=== PATIENT | male | born 1940 | race Caucasian/White ===

== ENCOUNTER 2018-05-18 12:39 | Emergency (ER) | payer MEDICARE, MEDICAID ==
[~2018-05-18] VITALS: Ht 175.3 cm; Wt 98.0 kg
[~2018-05-18 12:39] MED LIST: COLC0.6C3 PO; GLIM4TAB79 PO; METF1000 PO; MICO14CR5 TOP
[2018-05-18 13:14] LABS: BASOPHILS % (AUTO) 0.5 % (0-1); EOSINOPHILS # (AUTO) 0.3 X10'3 (0-0.9); EOSINOPHILS % (AUTO) 3.3 % (0-6); HEMATOCRIT 40.1 % (42.0-52.0); HEMOGLOBIN 13.4 g/dl (14.0-17.9); LYMPHOCYTES # (AUTO) 1.5 X10'3 (1.1-4.8); LYMPHOCYTES % (AUTO) 14.9 % (21-51); MEAN CORPUSCULAR HEMOGLOBIN 28.3 PG (27.0-31.0); MEAN CORPUSCULAR HGB CONC 33.4 % (33.0-36.5); MEAN CORPUSCULAR VOLUME 84.7 FL (78-98); MEAN PLATELET VOLUME 11.2 FL (7.4-10.4); MONOCYTES # (AUTO) 0.8 X10'3 (0-0.9); MONOCYTES % (AUTO) 7.6 % (2-12); NEUTROPHILS # (AUTO) 7.6 X10'3 (1.8-7.7); NEUTROPHILS % (AUTO) 73.7 % (42-75); PLATELET COUNT 132 X10'3 (140-440); RED BLOOD COUNT 4.74 X10'6 (4.70-6.10); RED CELL DISTRIBUTION WIDTH 14.3 % (11.5-14.5); WHITE BLOOD COUNT 10.4 X10'3 (4.5-11.0)
[2018-05-18 13:27] LABS: ALANINE AMINOTRANSFERASE 31 U/L (12-78); ALBUMIN 3.5 G/DL (3.4-5.0); ALBUMIN/GLOBULIN RATIO 1.1 (1.1-1.5); ALKALINE PHOSPHATASE 125 IU/L (46-116); ANION GAP 12 (8-16); ASPARTATE AMINO TRANSFERASE 18 U/L (10-37); BILIRUBIN,TOTAL 0.6 MG/DL (0.1-1.0); BLOOD UREA NITROGEN 29 MG/DL (7-18); BUN/CREATININE RATIO 12.8 (5.4-32.0); CALCIUM 8.8 MG/DL (8.5-10.1); CHLORIDE 106 MMOL/L (99-107); CREATININE 2.27 MG/DL (0.60-1.10); GLUCOSE 145 MG/DL (70-104); POTASSIUM 3.6 MMOL/L (3.5-5.1); SODIUM 144 MMOL/L (135-145); TOTAL CARBON DIOXIDE 26.3 MMOL/L (24-32); TOTAL PROTEIN 6.7 G/DL (6.4-8.2); eGFR 28 ML/MIN
[2018-05-18 13:29] LABS: PARTIAL THROMBOPLASTIN TIME 30 SECONDS (22-32); PROTHROMBIN TIME 10.4 SECONDS (9.0-12.0)
[2018-05-18 14:59] VITALS: BP 161/74
== END 2018-05-18 15:42 | disposition home or self-care (01) ==
LOC: ER 12:39
DX: R07.81 Pleurodynia (principal); E78.00 Pure hypercholesterolemia, unspecified; I10 Essential (primary) hypertension; J44.9 Chronic obstructive pulmonary disease, unspecified; Z88.1 Allergy status to other antibiotic agents; Z88.8 Allergy status to other drugs, medicaments and biological substances
CPT/HCPCS: 36415; 71045; 71250; 80053; 83880; 84484; 85025; 85610; 85730; 93005; 99285

== ENCOUNTER 2018-06-23 14:31 | Emergency (ER) | payer MEDICARE, MEDICAID ==
[~2018-06-23] VITALS: Ht 175.3 cm; Wt 96.3 kg
[2018-06-23 14:53] VITALS: BP 167/69
[2018-06-23] MEDS ORDERED: HYDROcodone/acetaminophen 10/325mg tab PO ONE (15:50)
[2018-06-23] MEDS ORDERED: HYDR-4353 PO (16:07)
== END 2018-06-23 16:19 | disposition home or self-care (01) ==
LOC: ER 14:32
DX: S92.414A Nondisplaced fracture of proximal phalanx of right great toe, initial encounter for closed fracture (principal); S92.325A Nondisplaced fracture of second metatarsal bone, left foot, initial encounter for closed fracture; S92.335A Nondisplaced fracture of third metatarsal bone, left foot, initial encounter for closed fracture; I10 Essential (primary) hypertension; E78.00 Pure hypercholesterolemia, unspecified; J44.9 Chronic obstructive pulmonary disease, unspecified; E11.9 Type 2 diabetes mellitus without complications; M10.9 Gout, unspecified; Z98.890 Other specified postprocedural states; Z88.0 Allergy status to penicillin; Z88.8 Allergy status to other drugs, medicaments and biological substances; Z79.84 Long term (current) use of oral hypoglycemic drugs; Z79.899 Other long term (current) drug therapy; W10.8XXA Fall (on) (from) other stairs and steps, initial encounter; Y93.89 Activity, other specified; Y92.89 Other specified places as the place of occurrence of the external cause; Y99.8 Other external cause status
CPT/HCPCS: 73630; 99283

== ENCOUNTER 2018-07-03 10:54 | Outpatient (CLI) | payer MEDICARE, MEDICAID ==
[~2018-07-03 10:54] MED LIST changes: +HYDR-4353 PO
[2018-07-03 10:55] VITALS: BP 154/84
== END 2018-07-03 11:42 | disposition home or self-care (01) ==
LOC: ORTHO 10:54
PROVIDERS: ATTEND Nurse Practitioner Family
DX: S92.325A Nondisplaced fracture of second metatarsal bone, left foot, initial encounter for closed fracture (principal); S92.335A Nondisplaced fracture of third metatarsal bone, left foot, initial encounter for closed fracture; S92.414A Nondisplaced fracture of proximal phalanx of right great toe, initial encounter for closed fracture; E78.00 Pure hypercholesterolemia, unspecified; I10 Essential (primary) hypertension; J44.9 Chronic obstructive pulmonary disease, unspecified; E11.9 Type 2 diabetes mellitus without complications; Z88.0 Allergy status to penicillin; Z88.1 Allergy status to other antibiotic agents; W10.8XXA Fall (on) (from) other stairs and steps, initial encounter; Y93.89 Activity, other specified; Y92.89 Other specified places as the place of occurrence of the external cause; Y99.8 Other external cause status
CPT/HCPCS: 99213

== ENCOUNTER 2018-07-26 09:54 | Outpatient (CLI) | payer MEDICARE, MEDICAID ==
[2018-07-26 09:53] VITALS: BP 166/93
[~2018-07-26 09:54] MED LIST changes: -HYDR-4353 PO
== END 2018-07-26 10:42 | disposition home or self-care (01) ==
LOC: ORTHO 09:54
PROVIDERS: ATTEND Nurse Practitioner Family
DX: S92.325D Nondisplaced fracture of second metatarsal bone, left foot, subsequent encounter for fracture with routine healing (principal); S92.335D Nondisplaced fracture of third metatarsal bone, left foot, subsequent encounter for fracture with routine healing; S92.414D Nondisplaced fracture of proximal phalanx of right great toe, subsequent encounter for fracture with routine healing; M79.89 Other specified soft tissue disorders; Z88.0 Allergy status to penicillin; I10 Essential (primary) hypertension; J44.9 Chronic obstructive pulmonary disease, unspecified; E11.9 Type 2 diabetes mellitus without complications; Z79.899 Other long term (current) drug therapy; Z88.8 Allergy status to other drugs, medicaments and biological substances; W01.0XXD Fall on same level from slipping, tripping and stumbling without subsequent striking against object, subsequent encounter
CPT/HCPCS: 73630; 99213

== ENCOUNTER 2019-03-13 17:59 | Inpatient (IN) | payer MEDICARE, MEDICAID ==
[~2019-03-13] VITALS: Ht 176.5 cm; Wt 96.8 kg
[~2019-03-13 17:59] MED LIST changes: +GLIM4TAB4 PO; -GLIM4TAB79 PO
[2019-03-13] MEDS ORDERED: methylPREDNISolone sod succ 125mg/2ml vial IV ONE (18:25)
[2019-03-13] MEDS ORDERED: ipratropium/albuterol 3ml nebule NEB ONE (18:25)
[2019-03-13 18:36] LABS: BASOPHILS % (AUTO) 0.4 % (0-1); EOSINOPHILS # (AUTO) 0.1 X10'3 (0-0.9); EOSINOPHILS % (AUTO) 1.3 % (0-6); HEMATOCRIT 25.5 % (42.0-52.0); HEMOGLOBIN 8.5 g/dl (14.0-17.9); LYMPHOCYTES # (AUTO) 0.8 X10'3 (1.1-4.8); LYMPHOCYTES % (AUTO) 7.7 % (21-51); MEAN CORPUSCULAR HEMOGLOBIN 28.6 PG (27.0-31.0); MEAN CORPUSCULAR HGB CONC 33.2 g/dL (33.0-36.5); MEAN CORPUSCULAR VOLUME 86.1 FL (78-98); MEAN PLATELET VOLUME 10.2 FL (7.4-10.4); MONOCYTES % (AUTO) 9.4 % (2-12); NEUTROPHILS # (AUTO) 8.5 X10'3 (1.8-7.7); NEUTROPHILS % (AUTO) 81.2 % (42-75); RED BLOOD COUNT 2.96 X10'6 (4.70-6.10); RED CELL DISTRIBUTION WIDTH 16.4 % (11.5-14.5); WHITE BLOOD COUNT 10.4 X10'3 (4.5-11.0)
[2019-03-13 18:49] LABS: PARTIAL THROMBOPLASTIN TIME 37 SECONDS (22-32)
[2019-03-13 18:54] LABS: ALANINE AMINOTRANSFERASE 27 U/L (12-78); ALBUMIN 3.4 G/DL (3.4-5.0); ALBUMIN/GLOBULIN RATIO 1.4 (1.1-1.5); ALKALINE PHOSPHATASE 68 IU/L (46-116); ANION GAP 23 (8-16); ASPARTATE AMINO TRANSFERASE 9 U/L (10-37); BILIRUBIN,TOTAL 0.4 MG/DL (0.1-1.0); BLOOD UREA NITROGEN 146 MG/DL (7-18); BUN/CREATININE RATIO 9.4 (5.4-32.0); CALCIUM 6.8 MG/DL (8.5-10.1); CHLORIDE 102 MMOL/L (99-107); CREATININE 15.57 MG/DL (0.60-1.10); GLUCOSE 115 MG/DL (70-104); POTASSIUM 4.1 MMOL/L (3.5-5.1); SODIUM 133 MMOL/L (135-145); TOTAL PROTEIN 5.9 G/DL (6.4-8.2); eGFR 3 ML/MIN
[2019-03-13 19:10] LABS: PLATELET COUNT 140 X10'3 (140-440)
[2019-03-13 19:12] LABS: ANISOCYTOSIS 1+; BURR CELLS 1+
[2019-03-13 19:17] LABS: PLATELET ESTIMATE DECREASED
[2019-03-13 19:22] LABS: CREATINE KINASE 720 U/L (39-308)
--- NOTE | 2019-03-13 19:39 | NUR ---
pt states he is thirsty, aske dr watts if he can drink, said yes he can, obtained ice water for pt, tolerated well, states f/c makes him feel like he has to pee, reminded him not to pull it out, need to monitor fluid i/o
[2019-03-13 19:40] LABS: CLARITY,URINE SLIGHTLY CLOUDY (Clear); COLOR,URINE YELLOW (Yellow); GLUCOSE, URINE NEGATIVE (Neg); KETONES,URINE NEGATIVE (Neg); LEUKOCYTE ESTERASE ,URINE MODERATE (Neg); NITRITES, URINE NEGATIVE (Neg); OCCULT BLOOD,URINE MODERATE (Neg); PH,URINE 5.5 (4.8-8.0); PROTEIN,URINE NEGATIVE (Neg); UROBILINOGEN,URINE 0.2 E.U/dL (0.2-1.0)
[2019-03-13 19:42] LABS: UA COLLECTION TYPE FOLEY CATH
[2019-03-13 19:48] LABS: AMORPHOUS URATES 2+; BACTERIA,URINE 1+ /HPF (Neg); RBC,URINE NONE SEEN /HPF (0-2); SQUAMOUS EPITHELIAL CELL,UR FEW /LPF (FEW)
[2019-03-13 19:51] LABS: ABG BASE EXCESS -21.9 mmol/L (-2.0-3.0); ABG HCO3 5.5 mmol/L (22.0-26.0); ABG OXYGEN SATURATION 96.1 % (95-98); ABG PCO2 (T) 16.9 mmHg (35.0-45.0); ABG PH (T) 7.127 (7.350-7.450); ABG PO2 (T) 101.8 mmHg (83-108); ALLEN'S TEST Positive; FCOHb 0.3 % (0.5-1.5); FLOW 1 L/min; FMetHb 0.3 % (0.3-1.12); FO2Hb 95.5 % (94-100); PATIENT TEMPERATURE 36.5; RESPIRATORY RATE (OBSERVED) 22 b/min; TOTAL HEMOGLOBIN 9.2 G/dl (14.0-17.9)
[2019-03-13] MEDS ORDERED: ALLO100T PO (20:00)
[2019-03-13] MEDS ORDERED: METO1TAB25 PO (20:00)
[2019-03-13] MEDS ORDERED: FLO0.4C PO (20:00)
[2019-03-13] MEDS ORDERED: SIMV20TA5 PO (20:00)
[2019-03-13] MEDS ORDERED: ATRIN IH (20:00)
[2019-03-13] MEDS ORDERED: CALC0.2511 PO (20:00)
[2019-03-13] MEDS ORDERED: LANTUS SQ (20:00)
[2019-03-13] MEDS ORDERED: TIOT18CA3 IH (20:00)
[2019-03-13] MEDS ORDERED: LINA5TAB4 PO (20:00)
[2019-03-13] MEDS ORDERED: dextrose ORAL solution 15 GM/59 ML bottle PO PRN ×2 (20:15)
[2019-03-13] MEDS ORDERED: glucagon, human recombinant 1mg kit SUBCUT PRN (20:15)
[2019-03-13] MEDS ORDERED: MESSAGE TO PHARMACY PO ONE (20:15)
[2019-03-13] MEDS ORDERED: sodium bicarbonate (8.4%) inj. 75 MEQ in dextrose 5% water 500ml 500 ML IV SCH (20:15)
[2019-03-13] MEDS ORDERED: dextrose 50%-water 50ml dispensing syringe IV PRN ×2 (20:15)
[2019-03-13] MEDS ORDERED: acetaminophen 325mg tablet PO PRN (20:15)
[2019-03-13] MEDS: insulin glargine (Lantus) pen - multi-dose SQ SCH (20:29)
[2019-03-13] MEDS ORDERED: levoFLOXACIN-Levaquin 500mg/D5 100 ML IV ONE (20:30)
[2019-03-13 20:42] LABS: HEMOGLOBIN A1C 6.1 % (4.5-6.2)
[2019-03-13 21:00] VITALS: BP 163/81
--- NOTE | 2019-03-13 21:20 | NUR ---
Patient in room PCU 3012. I have received report from Ingrid STARK and had the opportunity to ask questions and assume patient care.
[2019-03-13] MEDS: atorvastatin 20mg tablet PO SCH (21:29)
[2019-03-13] MEDS: tamsulosin 0.4mg capsule PO SCH (21:30)
[2019-03-13] MEDS: morphine 2 MG/ML inj. syringe IV PRN (22:00)
[2019-03-13 23:00] VITALS: BP 146/78
[2019-03-14] MEDS: ondansetron/PF 4mg/2ml inj IV PRN (00:24)
[2019-03-14] MEDS: morphine 2 MG/ML inj. syringe IV PRN ×3 (00:25→03:54)
[2019-03-14 01:17] LABS: BASOPHILS % (AUTO) 0.1 % (0-1); EOSINOPHILS % (AUTO) 0.2 % (0-6); HEMATOCRIT 25.3 % (42.0-52.0); HEMOGLOBIN 8.3 g/dl (14.0-17.9); LYMPHOCYTES # (AUTO) 0.3 X10'3 (1.1-4.8); LYMPHOCYTES % (AUTO) 2.7 % (21-51); MEAN CORPUSCULAR HEMOGLOBIN 28.2 PG (27.0-31.0); MEAN CORPUSCULAR HGB CONC 32.8 g/dL (33.0-36.5); MEAN CORPUSCULAR VOLUME 86.1 FL (78-98); MEAN PLATELET VOLUME 10.5 FL (7.4-10.4); MONOCYTES # (AUTO) 0.1 X10'3 (0-0.9); MONOCYTES % (AUTO) 1.2 % (2-12); NEUTROPHILS # (AUTO) 10.9 X10'3 (1.8-7.7); NEUTROPHILS % (AUTO) 95.8 % (42-75); PLATELET COUNT 97 X10'3 (140-440); RED BLOOD COUNT 2.94 X10'6 (4.70-6.10); RED CELL DISTRIBUTION WIDTH 16.5 % (11.5-14.5); WHITE BLOOD COUNT 11.4 X10'3 (4.5-11.0)
[2019-03-14 01:28] LABS: ALANINE AMINOTRANSFERASE 31 U/L (12-78); ALBUMIN 3.4 G/DL (3.4-5.0); ALBUMIN/GLOBULIN RATIO 1.3 (1.1-1.5); ALKALINE PHOSPHATASE 71 IU/L (46-116); ANION GAP 27 (8-16); ASPARTATE AMINO TRANSFERASE 11 U/L (10-37); BILIRUBIN,TOTAL 0.4 MG/DL (0.1-1.0); BLOOD UREA NITROGEN 135 MG/DL (7-18); BUN/CREATININE RATIO 9.2 (5.4-32.0); CALCIUM 6.4 MG/DL (8.5-10.1); CHLORIDE 101 MMOL/L (99-107); CREATININE 14.62 MG/DL (0.60-1.10); GLUCOSE 146 MG/DL (70-104); MAGNESIUM 1.7 MG/DL (1.5-2.4); POTASSIUM 4.2 MMOL/L (3.5-5.1); SODIUM 135 MMOL/L (135-145); eGFR 3 ML/MIN
[2019-03-14 01:30] LABS: PHOSPHORUS 10.5 MG/DL (2.3-4.5); TOTAL CARBON DIOXIDE 6.9 MMOL/L (24-32)
[2019-03-14] MEDS ORDERED: sodium bicarbonate (8.4%) 1 mEq/ml syringe IV ONE (01:45)
[2019-03-14 02:00] VITALS: BP 168/74
[2019-03-14 06:00] VITALS: BP 164/87
--- NOTE | 2019-03-14 06:00 | NUR ---
Patient in room PCU 3012. I have received report from Ute STARK and had the opportunity to ask questions and assume patient care.
--- NOTE | 2019-03-14 06:28 | NUR ---
Problems reprioritized. Patient report given, questions answered & plan of care reviewed with Kelli STARK.
[2019-03-14] MEDS: sodium bicarbonate inj. 75 ML in dextrose 5% water 500ml 500 ML IV SCH ×5 (07:07→23:28)
[2019-03-14 07:43] LABS: ALANINE AMINOTRANSFERASE 29 U/L (12-78); ALBUMIN 3.3 G/DL (3.4-5.0); ALBUMIN/GLOBULIN RATIO 1.2 (1.1-1.5); ALKALINE PHOSPHATASE 70 IU/L (46-116); ANION GAP 28 (8-16); ASPARTATE AMINO TRANSFERASE 18 U/L (10-37); BILIRUBIN,TOTAL 0.4 MG/DL (0.1-1.0); BLOOD UREA NITROGEN 147 MG/DL (7-18); BUN/CREATININE RATIO 9.3 (5.4-32.0); CALCIUM 7.1 MG/DL (8.5-10.1); CHLORIDE 99 MMOL/L (99-107); CREATININE 15.81 MG/DL (0.60-1.10); GLUCOSE 174 MG/DL (70-104); POTASSIUM 4.2 MMOL/L (3.5-5.1); SODIUM 134 MMOL/L (135-145); TOTAL PROTEIN 6.1 G/DL (6.4-8.2); eGFR 3 ML/MIN
[2019-03-14 07:49] LABS: TOTAL CARBON DIOXIDE 7.2 MMOL/L (24-32)
--- NOTE | 2019-03-14 07:50 | NUR ---
Call to Dr Jordan re: critical lab CO2 7.2, new orders to increase Bicarb drip to 150 MEQ at 150 ml/hr, pt also c/o heartburn new order for Pepcid 20 mg orally twice daily. Orders entered Addendum: 03/14/19 at 1443 by Kelli Contreras RN clarification of bicarb order, pt to stay at 75 MEQ/500ml D5W, increase rate to 150ml/hr
[2019-03-14] MEDS ORDERED: heparin, porcine 5000 units/ml vial SQ SCH (08:00)
[2019-03-14] MEDS: ipratropium 0.5 MG/2.5ML nebule IH SCH ×2 (08:24→20:00)
[2019-03-14] MEDS: famotidine 20mg tablet PO SCH ×2 (09:01→19:12)
[2019-03-14 11:00] VITALS: BP 158/77
[2019-03-14] MEDS: insulin Lispro (HumaLOG) vial - multi-dose SQ SCH ×2 (13:36→19:07)
[2019-03-14 13:47] LABS: CLARITY,URINE CLOUDY (Clear); COLOR,URINE YELLOW (Yellow); GLUCOSE, URINE 100 mg/dl (Neg); KETONES,URINE NEGATIVE (Neg); LEUKOCYTE ESTERASE ,URINE MODERATE (Neg); NITRITES, URINE NEGATIVE (Neg); OCCULT BLOOD,URINE LARGE (Neg); PH,URINE 5.5 (4.8-8.0); PROTEIN,URINE 30 mg/dl (Neg); UROBILINOGEN,URINE 0.2 E.U/dL (0.2-1.0)
[2019-03-14 13:51] LABS: TOTAL PROTEIN,URINE RANDOM 49.8 MG/DL
[2019-03-14 13:58] LABS: UA COLLECTION TYPE FOLEY CATH
[2019-03-14 14:14] LABS: WBC,URINE 50-100 /HPF (0-4)
[2019-03-14 14:16] LABS: BACTERIA,URINE 1+ /HPF (Neg)
[2019-03-14 14:17] LABS: RBC,URINE 20-50 /HPF (0-2); WBC CLUMPS,URINE MODERATE /HPF (NEGATIVE)
[2019-03-14 14:23] LABS: SQUAMOUS EPITHELIAL CELL,UR MODERATE /LPF (FEW)
[2019-03-14 14:27] LABS: MUCUS STRANDS FEW /LPF (Neg); RENAL CELLS, URINE MODERATE /HPF; TRANSITIONAL EPI CELLS,URINE FEW /HPF
[2019-03-14 15:00] VITALS: BP 154/59
[2019-03-14 16:16] LABS: UA EOSINOPHILS NO EOS /HPF
[2019-03-14] MEDS ORDERED: levoFLOXACIN 500mg tablet PO ONE (16:30)
--- NOTE | 2019-03-14 18:00 | NUR ---
Problems reprioritized. Patient report given, questions answered & plan of care reviewed with Jeanie STARK.
--- NOTE | 2019-03-14 18:00 | NUR ---
Patient in room PCU 3012. I have received report from Kelli STARK and had the opportunity to ask questions and assume patient care.
[2019-03-14 19:00] VITALS: BP 145/76
[2019-03-14] MEDS: lactobacillus rhamnosus 10,000 MMU CELLS/CAPSULE PO SCH (19:12)
[2019-03-14] MEDS: atorvastatin 20mg tablet PO SCH (21:16)
[2019-03-14] MEDS: tamsulosin 0.4mg capsule PO SCH (21:17)
[2019-03-14] MEDS: insulin glargine (Lantus) pen - multi-dose SQ SCH (21:22)
[2019-03-14 23:00] VITALS: BP 149/65
[2019-03-15 03:00] VITALS: BP 120/93
[2019-03-15] MEDS: sodium bicarbonate inj. 75 ML in dextrose 5% water 500ml 500 ML IV SCH ×5 (03:42→23:55)
[2019-03-15 06:00] VITALS: BP 162/78
--- NOTE | 2019-03-15 06:00 | NUR ---
Patient in room PCU 3012. I have received report from Jeanie STARK and had the opportunity to ask questions and assume patient care.
--- NOTE | 2019-03-15 06:20 | NUR ---
Problems reprioritized. Patient report given, questions answered & plan of care reviewed with Crissy STARK.
[2019-03-15] MEDS ORDERED: normal saline 1000ml 250 ML IV PRN (08:00)
[2019-03-15] MEDS ORDERED: epoetin 20,000 units/ml inj IV ONE (08:00)
[2019-03-15] MEDS ORDERED: heparin 1,000 units/ml 10ml inj HE ONE ×2 (08:00)
[2019-03-15] MEDS ORDERED: heparin 1,000unit/ml 10ml vial 10 ML IV ONE (08:00)
[2019-03-15] MEDS: lactobacillus rhamnosus 10,000 MMU CELLS/CAPSULE PO SCH ×2 (08:53→22:06)
[2019-03-15] MEDS: famotidine 20mg tablet PO SCH ×2 (08:53→22:06)
[2019-03-15] MEDS: ipratropium 0.5 MG/2.5ML nebule IH SCH ×2 (08:53→22:55)
[2019-03-15 09:14] LABS: BASOPHILS % (AUTO) 0.1 % (0-1); EOSINOPHILS % (AUTO) 0 % (0-6); HEMOGLOBIN 7.2 g/dl (14.0-17.9); LYMPHOCYTES # (AUTO) 0.5 X10'3 (1.1-4.8); LYMPHOCYTES % (AUTO) 4.7 % (21-51); MEAN CORPUSCULAR HEMOGLOBIN 28.5 PG (27.0-31.0); MEAN CORPUSCULAR VOLUME 83.7 FL (78-98); MEAN PLATELET VOLUME 9.9 FL (7.4-10.4); MONOCYTES # (AUTO) 0.7 X10'3 (0-0.9); MONOCYTES % (AUTO) 6.7 % (2-12); NEUTROPHILS # (AUTO) 8.8 X10'3 (1.8-7.7); NEUTROPHILS % (AUTO) 88.5 % (42-75); PLATELET COUNT 94 X10'3 (140-440); RED BLOOD COUNT 2.51 X10'6 (4.70-6.10)
--- NOTE | 2019-03-15 09:40 | NUR ---
DR SANCHEZ INFORMED OF CURRENT H/H 7.2/21.0. NO NEW ORDERS AT THIS. Addendum: 03/15/19 at 0948 by Barbara Allen RN Amended: Links added.
[2019-03-15 09:58] LABS: PARTIAL THROMBOPLASTIN TIME 34 SECONDS (22-32)
[2019-03-15 10:00] LABS: ALANINE AMINOTRANSFERASE 33 U/L (12-78); ALBUMIN 3.1 G/DL (3.4-5.0); ALBUMIN/GLOBULIN RATIO 1.3 (1.1-1.5); ALKALINE PHOSPHATASE 60 IU/L (46-116); ANION GAP 20 (8-16); ASPARTATE AMINO TRANSFERASE 27 U/L (10-37); BILIRUBIN,TOTAL 0.3 MG/DL (0.1-1.0); BLOOD UREA NITROGEN 143 MG/DL (7-18); BUN/CREATININE RATIO 9.7 (5.4-32.0); CALCIUM 6.2 MG/DL (8.5-10.1); CHLORIDE 96 MMOL/L (99-107); GLUCOSE 113 MG/DL (70-104); MAGNESIUM 1.5 MG/DL (1.5-2.4); POTASSIUM 3.6 MMOL/L (3.5-5.1); SODIUM 132 MMOL/L (135-145); TOTAL PROTEIN 5.5 G/DL (6.4-8.2); eGFR 3 ML/MIN
[2019-03-15 11:00] VITALS: BP 157/71
[2019-03-15] MEDS: levoFLOXACIN 250mg tablet PO SCH (13:28)
[2019-03-15] MEDS ORDERED: fentaNYL/PF 50MCG/1 ML 2ML syringe IV PRN (13:40)
[2019-03-15] MEDS ORDERED: heparin 1,000 units/ml 10ml inj ICATH ONE (13:40)
[2019-03-15] MEDS ORDERED: midazolam 2 mg/2 ml injection IV PRN (13:40)
[2019-03-15] MEDS ORDERED: LIDOcaine 1%/PF 5ML 10 MG/ML VIAL SQ ONE (13:40)
[2019-03-15] MEDS ORDERED: midazolam 2 mg/2 ml injection ONE (13:48)
[2019-03-15] MEDS ORDERED: LIDOcaine 1%/PF 5ML 10 MG/ML VIAL ONE (13:48)
[2019-03-15] MEDS ORDERED: heparin 1,000unit/ml 10ml vial 10 ML ONE (13:48)
[2019-03-15] MEDS ORDERED: fentaNYL/PF 50MCG/1 ML 2ML syringe ONE (13:49)
[2019-03-15 15:00] VITALS: BP 146/78
[2019-03-15 18:00] VITALS: BP 113/74
--- NOTE | 2019-03-15 18:00 | NUR ---
Patient in room PCU 3027. I have received report from Anita STARK and had the opportunity to ask questions and assume patient care.
--- NOTE | 2019-03-15 18:00 | NUR ---
Problems reprioritized. Patient report given, questions answered & plan of care reviewed with Jeanie STARK.
[2019-03-15] MEDS: ondansetron/PF 4mg/2ml inj IV PRN (19:52)
[2019-03-15] MEDS: insulin glargine (Lantus) pen - multi-dose SQ SCH (21:00)
[2019-03-15 21:11] LABS: FERRITIN 411 NG/ML (26-388)
[2019-03-15 21:13] LABS: % IRON SATURATION 104 % (11-46); IRON 129 UG/DL (53-167); TOTAL IRON BINDING CAPACITY 124 UG/DL (259-388)
[2019-03-15 22:00] VITALS: BP 174/82
[2019-03-15] MEDS: tamsulosin 0.4mg capsule PO SCH (22:06)
[2019-03-15] MEDS: atorvastatin 20mg tablet PO SCH (22:06)
[2019-03-15] MEDS ORDERED: morphine 2 MG/ML inj. syringe IV PRN (22:40)
--- NOTE | 2019-03-16 00:43 | NUR ---
New a-fib rhythm change, flavorer Onel was contacted. Patient had no pain but was very anxious and confused after Dialysis; blood pressure 174/87. Verapamil was ordered for high blood pressure and 2mg Morphine was ordered for anxiety. Medication was given and patient now is more comfortable in bed, able to state he is in the hospital, name, birthday, and that dialysis was done. Will continue to monitor patient.
[2019-03-16 02:00] VITALS: BP 113/61
--- NOTE | 2019-03-16 02:14 | NUR ---
Patient finished dialysis at 2100, capillary blood sugar would have been inaccurate for Lantus. Blood sugars have been stable: 127 (AM), 102 (1400), 96 (1700). Patient NPO most of the day and had no appetite to eat dinner. 0200 blood sugar is 96, patient has no signs of hypoglycemia, will continue to monitor.
[2019-03-16 06:00] VITALS: BP 149/64
--- NOTE | 2019-03-16 06:00 | NUR ---
Patient in room PCU 3027. I have received report from Jeanie STARK and had the opportunity to ask questions and assume patient care.
[2019-03-16] MEDS: ondansetron/PF 4mg/2ml inj IV PRN ×2 (06:52→16:35)
--- NOTE | 2019-03-16 06:54 | NUR ---
Problems reprioritized. Patient report given, questions answered & plan of care reviewed with Anita RN.
[2019-03-16 07:10] LABS: BASOPHILS % (AUTO) 0.1 % (0-1); EOSINOPHILS % (AUTO) 0 % (0-6); HEMATOCRIT 22.3 % (42.0-52.0); HEMOGLOBIN 7.6 g/dl (14.0-17.9); LYMPHOCYTES # (AUTO) 0.4 X10'3 (1.1-4.8); LYMPHOCYTES % (AUTO) 2.5 % (21-51); MEAN CORPUSCULAR HEMOGLOBIN 28.3 PG (27.0-31.0); MEAN CORPUSCULAR HGB CONC 34.1 g/dL (33.0-36.5); MEAN CORPUSCULAR VOLUME 82.9 FL (78-98); MEAN PLATELET VOLUME 9.9 FL (7.4-10.4); MONOCYTES # (AUTO) 1.1 X10'3 (0-0.9); MONOCYTES % (AUTO) 7.9 % (2-12); NEUTROPHILS # (AUTO) 12.8 X10'3 (1.8-7.7); NEUTROPHILS % (AUTO) 89.5 % (42-75); RED BLOOD COUNT 2.69 X10'6 (4.70-6.10); RED CELL DISTRIBUTION WIDTH 16.2 % (11.5-14.5); WHITE BLOOD COUNT 14.3 X10'3 (4.5-11.0)
[2019-03-16 07:32] LABS: ALANINE AMINOTRANSFERASE 34 U/L (12-78); ALBUMIN 2.8 G/DL (3.4-5.0); ALBUMIN/GLOBULIN RATIO 1.1 (1.1-1.5); ALKALINE PHOSPHATASE 56 IU/L (46-116); ANION GAP 17 (8-16); ASPARTATE AMINO TRANSFERASE 36 U/L (10-37); BILIRUBIN,TOTAL 0.5 MG/DL (0.1-1.0); BLOOD UREA NITROGEN 95 MG/DL (7-18); BUN/CREATININE RATIO 8.7 (5.4-32.0); CALCIUM 6.1 MG/DL (8.5-10.1); CHLORIDE 97 MMOL/L (99-107); CREATININE 10.92 MG/DL (0.60-1.10); GLUCOSE 131 MG/DL (70-104); MAGNESIUM 1.4 MG/DL (1.5-2.4); PHOSPHORUS 5.9 MG/DL (2.3-4.5); SODIUM 135 MMOL/L (135-145); TOTAL CARBON DIOXIDE 20.6 MMOL/L (24-32); TOTAL PROTEIN 5.3 G/DL (6.4-8.2); eGFR 5 ML/MIN
--- NOTE | 2019-03-16 07:50 | NUR ---
Call to Sylvia Tate PAC re: critical lab of potassium 3.0, A-fib with rate of 130, nausea and confusion. Orders for single troponin and ABG. No potassium replacement ordered.
[2019-03-16 07:57] LABS: PLATELET COUNT 86 X10'3 (140-440)
[2019-03-16] MEDS ORDERED: heparin 1,000unit/ml 10ml vial 10 ML IV ONE (08:00)
[2019-03-16] MEDS ORDERED: epoetin 20,000 units/ml inj IV ONE (08:00)
[2019-03-16] MEDS ORDERED: normal saline 1000ml 250 ML IV PRN (08:00)
[2019-03-16] MEDS ORDERED: heparin 1,000 units/ml 10ml inj HE ONE ×2 (08:00)
[2019-03-16 08:13] LABS: HBSAG SCREEN Negative (Negative)
[2019-03-16] MEDS: ipratropium 0.5 MG/2.5ML nebule IH SCH ×2 (08:30→19:35)
[2019-03-16] MEDS: lactobacillus rhamnosus 10,000 MMU CELLS/CAPSULE PO SCH ×2 (08:52→19:24)
[2019-03-16] MEDS: famotidine 20mg tablet PO SCH ×2 (08:52→19:24)
[2019-03-16 09:06] LABS: ABG BASE EXCESS -6.1 mmol/L (-2.0-3.0); ABG HCO3 18.2 mmol/L (22.0-26.0); ABG PCO2 (T) 30.9 mmHg (35.0-45.0); ABG PH (T) 7.388 (7.350-7.450); ABG PO2 (T) 72.5 mmHg (83-108); ALLEN'S TEST Positive; FCOHb 0.3 % (0.5-1.5); FLOW 1 L/min; FMetHb 0.5 % (0.3-1.12); FO2Hb 92.3 % (94-100); TOTAL HEMOGLOBIN 7.9 G/dl (14.0-17.9)
[2019-03-16 11:00] VITALS: BP 98/66
[2019-03-16] MEDS ORDERED: lactulose 20gm/30ml cup PO ONE (14:10)
[2019-03-16 15:00] VITALS: BP 150/56
[2019-03-16] MEDS: levoFLOXACIN 250mg tablet PO SCH (15:28)
[2019-03-16] MEDS: sodium bicarbonate inj. 75 ML in dextrose 5% water 500ml 500 ML IV SCH ×2 (15:34→15:40)
[2019-03-16 18:00] VITALS: BP 140/74
--- NOTE | 2019-03-16 18:00 | NUR ---
Problems reprioritized. Patient report given, questions answered & plan of care reviewed with Harriet STARK.
[2019-03-16] MEDS: insulin Lispro (HumaLOG) vial - multi-dose SQ SCH (19:28)
[2019-03-16 19:45] LABS: OCCULT BLOOD STOOL NEGATIVE (Neg)
[2019-03-16] MEDS: tamsulosin 0.4mg capsule PO SCH (20:22)
[2019-03-16] MEDS: lactulose 20gm/30ml cup PO SCH (20:22)
[2019-03-16] MEDS: atorvastatin 20mg tablet PO SCH (20:22)
[2019-03-16] MEDS: insulin glargine (Lantus) pen - multi-dose SQ SCH (21:36)
[2019-03-16 23:00] VITALS: BP 121/64
[2019-03-17 03:00] VITALS: BP 148/67
[2019-03-17] MEDS: sodium bicarbonate inj. 75 ML in dextrose 5% water 500ml 500 ML IV SCH (04:48)
[2019-03-17 06:10] LABS: BASOPHILS % (AUTO) 0.1 % (0-1); EOSINOPHILS % (AUTO) 0.2 % (0-6); LYMPHOCYTES # (AUTO) 0.5 X10'3 (1.1-4.8); MEAN CORPUSCULAR HEMOGLOBIN 28.2 PG (27.0-31.0); MEAN CORPUSCULAR HGB CONC 33.6 g/dL (33.0-36.5); MEAN CORPUSCULAR VOLUME 83.9 FL (78-98); MEAN PLATELET VOLUME 10.4 FL (7.4-10.4); MONOCYTES # (AUTO) 1.1 X10'3 (0-0.9); MONOCYTES % (AUTO) 9.7 % (2-12); NEUTROPHILS # (AUTO) 9.9 X10'3 (1.8-7.7); PLATELET COUNT 69 X10'3 (140-440); RED BLOOD COUNT 2.41 X10'6 (4.70-6.10); RED CELL DISTRIBUTION WIDTH 16.1 % (11.5-14.5); WHITE BLOOD COUNT 11.5 X10'3 (4.5-11.0)
[2019-03-17 06:17] LABS: HEMATOCRIT 20.2 % (42.0-52.0); HEMOGLOBIN 6.8 g/dl (14.0-17.9)
[2019-03-17 06:21] LABS: ALANINE AMINOTRANSFERASE 33 U/L (12-78); ALBUMIN 2.6 G/DL (3.4-5.0); ALBUMIN/GLOBULIN RATIO 1.1 (1.1-1.5); ALKALINE PHOSPHATASE 56 IU/L (46-116); ANION GAP 13 (8-16); ASPARTATE AMINO TRANSFERASE 30 U/L (10-37); BILIRUBIN,TOTAL 0.6 MG/DL (0.1-1.0); BLOOD UREA NITROGEN 61 MG/DL (7-18); CALCIUM 6.3 MG/DL (8.5-10.1); CHLORIDE 97 MMOL/L (99-107); GLUCOSE 118 MG/DL (70-104); MAGNESIUM 1.5 MG/DL (1.5-2.4); PHOSPHORUS 4.2 MG/DL (2.3-4.5); SODIUM 135 MMOL/L (135-145); TOTAL CARBON DIOXIDE 25.3 MMOL/L (24-32); TOTAL PROTEIN 4.9 G/DL (6.4-8.2); eGFR 7 ML/MIN
[2019-03-17 06:27] LABS: POTASSIUM 2.7 MMOL/L (3.5-5.1)
--- NOTE | 2019-03-17 06:40 | NUR ---
Problems reprioritized. Patient report given, questions answered & plan of care reviewed with LINCOLN Merritt.
--- NOTE | 2019-03-17 06:41 | NUR ---
Patient in room PCU 3027. I have received report from Harriet STARK and had the opportunity to ask questions and assume patient care.
[2019-03-17] MEDS ORDERED: potassium Cl 20 mEq SR tablet PO ONE (06:45)
--- NOTE | 2019-03-17 06:45 | NUR ---
July notified of critical lab values of K 2.7, HgB 6.8, and Hct 20.2. stated she will put some orders in. Day shift RN also notified.
[2019-03-17 07:00] VITALS: BP 139/61
[2019-03-17] MEDS: lactobacillus rhamnosus 10,000 MMU CELLS/CAPSULE PO SCH ×2 (07:47→19:21)
[2019-03-17] MEDS: famotidine 20mg tablet PO SCH ×2 (07:47→19:20)
[2019-03-17 08:08] LABS: HEMOGLOBIN 7.2 g/dl (14.0-17.9); MEAN CORPUSCULAR HEMOGLOBIN 28.1 PG (27.0-31.0); MEAN CORPUSCULAR HGB CONC 33.2 g/dL (33.0-36.5); MEAN CORPUSCULAR VOLUME 84.5 FL (78-98); MEAN PLATELET VOLUME 10.3 FL (7.4-10.4); PLATELET COUNT 66 X10'3 (140-440); RED BLOOD COUNT 2.58 X10'6 (4.70-6.10); RED CELL DISTRIBUTION WIDTH 16.1 % (11.5-14.5); WHITE BLOOD COUNT 13.2 X10'3 (4.5-11.0)
[2019-03-17 08:13] LABS: HEMATOCRIT 21.8 % (42.0-52.0)
[2019-03-17] MEDS: insulin Lispro (HumaLOG) vial - multi-dose SQ SCH ×3 (08:21→18:48)
--- NOTE | 2019-03-17 08:30 | NUR ---
Patient has been stating that he is foggy in his head. Received report regarding patient being agitated after HD. Will continue to monitor.
[2019-03-17] MEDS: ipratropium 0.5 MG/2.5ML nebule IH SCH ×2 (09:39→20:12)
[2019-03-17 11:00] VITALS: BP 186/79
[2019-03-17] MEDS: levoFLOXACIN 250mg tablet PO SCH (11:09)
--- NOTE | 2019-03-17 11:19 | NUR ---
Spoke with Sylvia Tate. New orders for rose removal and bladder scanning with straight cath. Rose was removed and shruti care was provided, patient was provided with urinal.
[2019-03-17 15:00] VITALS: BP_SYST 139; BP_SYST 147; BP_DIAS 61; BP_DIAS 66
--- NOTE | 2019-03-17 18:22 | NUR ---
Problems reprioritized. Patient report given, questions answered & plan of care reviewed with Guido STARK. Patient stable at transfer of care.
--- NOTE | 2019-03-17 18:32 | NUR ---
Patient in room PCU 3021g. I have received report from LINCOLN Merritt and had the opportunity to ask questions and assume patient care. Patient awake for bedside report. Sitter at bedside. Will continue to monitor closely.
--- NOTE | 2019-03-17 18:58 | NUR ---
PAGER ID: [phone] MESSAGE: [phone]. [phone], LINCOLN Lora for patient in 3023m. Patient complaining anxiety and unable to calm down despite using calming approach. Are we able to get anything for him? Thank you
[2019-03-17 19:00] VITALS: BP 152/71
[2019-03-17] MEDS: LORazepam 1 MG tablet PO PRN (19:20)
[2019-03-17] MEDS: lactulose 20gm/30ml cup PO SCH (20:49)
[2019-03-17] MEDS: atorvastatin 20mg tablet PO SCH (20:50)
[2019-03-17] MEDS: tamsulosin 0.4mg capsule PO SCH (20:50)
[2019-03-17] MEDS: insulin glargine (Lantus) pen - multi-dose SQ SCH (21:00)
[2019-03-17 23:00] VITALS: BP 121/62
[2019-03-18 03:00] VITALS: BP 146/86
[2019-03-18 06:04] LABS: ALANINE AMINOTRANSFERASE 42 U/L (12-78); ALBUMIN 2.8 G/DL (3.4-5.0); ALBUMIN/GLOBULIN RATIO 1.1 (1.1-1.5); ALKALINE PHOSPHATASE 68 IU/L (46-116); ANION GAP 15 (8-16); ASPARTATE AMINO TRANSFERASE 36 U/L (10-37); BILIRUBIN,TOTAL 0.6 MG/DL (0.1-1.0); BLOOD UREA NITROGEN 60 MG/DL (7-18); CALCIUM 6.3 MG/DL (8.5-10.1); CHLORIDE 95 MMOL/L (99-107); CREATININE 8.63 MG/DL (0.60-1.10); GLUCOSE 95 MG/DL (70-104); MAGNESIUM 1.7 MG/DL (1.5-2.4); PHOSPHORUS 4.5 MG/DL (2.3-4.5); POTASSIUM 3.1 MMOL/L (3.5-5.1); SODIUM 132 MMOL/L (135-145); TOTAL CARBON DIOXIDE 22.1 MMOL/L (24-32); TOTAL PROTEIN 5.4 G/DL (6.4-8.2); eGFR 6 ML/MIN
--- NOTE | 2019-03-18 06:12 | NUR ---
Problems reprioritized. Patient report given, questions answered & plan of care reviewed with Guido STARK. Patient stable at transfer of care.
[2019-03-18 06:22] LABS: BASOPHILS % (AUTO) 0.1 % (0-1); EOSINOPHILS # (AUTO) 0.2 X10'3 (0-0.9); EOSINOPHILS % (AUTO) 1.3 % (0-6); HEMOGLOBIN 7.2 g/dl (14.0-17.9); LYMPHOCYTES # (AUTO) 1.2 X10'3 (1.1-4.8); LYMPHOCYTES % (AUTO) 6.7 % (21-51); MEAN CORPUSCULAR HEMOGLOBIN 28.8 PG (27.0-31.0); MEAN CORPUSCULAR HGB CONC 33.8 g/dL (33.0-36.5); MEAN PLATELET VOLUME 10.6 FL (7.4-10.4); MONOCYTES # (AUTO) 2.3 X10'3 (0-0.9); NEUTROPHILS # (AUTO) 14.2 X10'3 (1.8-7.7); NEUTROPHILS % (AUTO) 78.9 % (42-75); PLATELET COUNT 67 X10'3 (140-440); RED BLOOD COUNT 2.52 X10'6 (4.70-6.10); RED CELL DISTRIBUTION WIDTH 16.1 % (11.5-14.5); WHITE BLOOD COUNT 17.9 X10'3 (4.5-11.0)
[2019-03-18 06:28] LABS: HEMATOCRIT 21.4 % (42.0-52.0)
--- NOTE | 2019-03-18 06:31 | NUR ---
Reported critical Hgb 7.2, Hct 21.4, Platelets 67 to Onel. No new orders received.
--- NOTE | 2019-03-18 06:38 | NUR ---
Problems reprioritized. Patient report given, questions answered & plan of care reviewed with LINCOLN Merritt.
[2019-03-18 06:48] VITALS: BP 161/72
[2019-03-18] MEDS: lactobacillus rhamnosus 10,000 MMU CELLS/CAPSULE PO SCH ×2 (07:32→21:10)
[2019-03-18] MEDS: LORazepam 1 MG tablet PO PRN ×2 (07:32→17:24)
[2019-03-18] MEDS: famotidine 20mg tablet PO SCH ×2 (07:32→21:10)
--- NOTE | 2019-03-18 08:00 | NUR ---
Patient has intermittent confusion, sitter at bedside, will continue to monitor.
[2019-03-18] MEDS: insulin Lispro (HumaLOG) vial - multi-dose SQ SCH ×2 (08:07→14:04)
[2019-03-18] MEDS: ipratropium 0.5 MG/2.5ML nebule IH SCH ×2 (08:32→19:41)
[2019-03-18 09:46] LABS: TOTAL CELLS COUNTED 100
[2019-03-18 09:47] LABS: ANISOCYTOSIS 1+; LARGE PLATELETS FEW; PLATELET ESTIMATE DECREASED
[2019-03-18] MEDS ORDERED: heparin 1,000unit/ml 10ml vial 10 ML IV ONE (10:01)
[2019-03-18] MEDS ORDERED: normal saline 1000ml 250 ML IV PRN (10:01)
[2019-03-18] MEDS ORDERED: epoetin 20,000 units/ml inj IV ONE (10:05)
[2019-03-18] MEDS ORDERED: heparin 1,000 units/ml 10ml inj HE ONE ×2 (10:05)
[2019-03-18] MEDS: levoFLOXACIN 250mg tablet PO SCH (10:10)
[2019-03-18 11:00] VITALS: BP 146/77
--- NOTE | 2019-03-18 15:25 | NUR ---
Initial: Pt admit w/ SOB hx CKD III; ARF w/ ATN per MD note s/p HD past 2 days and not to receive today. PO improving 50-75% avg renal/carb controlled diet past 1.5 days up from 0% prior on admit. LBM 03/17. Glucerna TIDWM added for additional protein/kcal needs pending MD verification prior to sending on meals. Will continue to monitor for additional protein needs on HD. Rec: 1. continue carb controlled/renal diet per MD 2. Glucerna TIDWM pending MD verification prior to sending on trays 3. wt w/ HD Addendum: 03/18/19 at [address] Amended: Links added.
--- NOTE | 2019-03-18 18:15 | NUR ---
Patient in room PCU 3028b. I have received report from Shaina RN and Maria Antonia RN and had the opportunity to ask questions and assume patient care. Patient receiving HD and resting comfortably at this time. Will continue to monitor closely.
--- NOTE | 2019-03-18 18:35 | NUR ---
Problems reprioritized. Patient report given, questions answered & plan of care reviewed with Guido STARK. Patient stable at transfer of care.
[2019-03-18 19:00] VITALS: BP 159/89
[2019-03-18] MEDS: atorvastatin 20mg tablet PO SCH (21:10)
[2019-03-18] MEDS: tamsulosin 0.4mg capsule PO SCH (21:10)
--- NOTE | 2019-03-18 21:10 | NUR ---
Patient had observed fall at 2044. No injuries sustained and patient is alert to person, place, time and events. B/P 161/73 HR 80 Occurrence report filed and human resources manager manufacturing notified. No new orders at this time. Sitter orders remain. Will continue to monitor closely.
[2019-03-18] MEDS: lactulose 20gm/30ml cup PO SCH (21:11)
--- NOTE | 2019-03-18 21:18 | NUR ---
Late administration of scheduled medication due to hemodialysis infusion.
[2019-03-18] MEDS: insulin glargine (Lantus) pen - multi-dose SQ SCH (21:45)
[2019-03-18 23:00] VITALS: BP 157/72
[2019-03-19] VITALS (8 sets, daily range): BP systolic 125–163; BP diastolic 50–78
[2019-03-19] MEDS: LORazepam 1 MG tablet PO PRN ×2 (03:03→19:26)
[2019-03-19 05:38] LABS: ALBUMIN 2.6 G/DL (3.4-5.0); ANION GAP 12 (8-16); BLOOD UREA NITROGEN 34 MG/DL (7-18); BUN/CREATININE RATIO 5.5 (5.4-32.0); CALCIUM 6.6 MG/DL (8.5-10.1); CHLORIDE 101 MMOL/L (99-107); GLUCOSE 70 MG/DL (70-104); PHOSPHORUS 2.8 MG/DL (2.3-4.5); POTASSIUM 3.3 MMOL/L (3.5-5.1); SODIUM 137 MMOL/L (135-145); TOTAL CARBON DIOXIDE 24.5 MMOL/L (24-32); eGFR 9 ML/MIN
--- NOTE | 2019-03-19 06:14 | NUR ---
Problems reprioritized. Patient report given, questions answered & plan of care reviewed with LINCOLN Merritt and LINCOLN Em.
[2019-03-19 06:34] LABS: BASOPHILS % (AUTO) 0.1 % (0-1); EOSINOPHILS # (AUTO) 0.1 X10'3 (0-0.9); EOSINOPHILS % (AUTO) 1.1 % (0-6); LYMPHOCYTES # (AUTO) 0.7 X10'3 (1.1-4.8); LYMPHOCYTES % (AUTO) 6.1 % (21-51); MEAN CORPUSCULAR HGB CONC 32.8 g/dL (33.0-36.5); MEAN CORPUSCULAR VOLUME 85.4 FL (78-98); MEAN PLATELET VOLUME 9.8 FL (7.4-10.4); MONOCYTES # (AUTO) 2.2 X10'3 (0-0.9); MONOCYTES % (AUTO) 17.7 % (2-12); NEUTROPHILS # (AUTO) 9.2 X10'3 (1.8-7.7); PLATELET COUNT 81 X10'3 (140-440); RED BLOOD COUNT 2.46 X10'6 (4.70-6.10); RED CELL DISTRIBUTION WIDTH 15.9 % (11.5-14.5); WHITE BLOOD COUNT 12.2 X10'3 (4.5-11.0)
[2019-03-19 06:37] LABS: HEMOGLOBIN 6.9 g/dl (14.0-17.9)
--- NOTE | 2019-03-19 06:39 | NUR ---
Spoke with PAULINE Sykes regarding critical value Hgb 6.9, Hct 21.0 and Plts 81, no new orders received. Also asked if the patient K should be replaced due to the value at 3.3 and Onel said no.
--- NOTE | 2019-03-19 07:05 | NUR ---
Patient in room PCU 3027. I have received report from Guido STARK, and had the opportunity to ask questions and assume patient care.
[2019-03-19] MEDS: famotidine 20mg tablet PO SCH ×2 (07:52→19:11)
[2019-03-19] MEDS: lactobacillus rhamnosus 10,000 MMU CELLS/CAPSULE PO SCH ×2 (07:52→19:11)
--- NOTE | 2019-03-19 08:13 | NUR ---
Patient had low blood glucose this am, resource RN administered D50 and Blood glucose was normalized. Will continue to monitor.
[2019-03-19] MEDS: ipratropium 0.5 MG/2.5ML nebule IH SCH ×2 (09:27→19:32)
[2019-03-19 09:37] LABS: PLATELET ESTIMATE DECREASED; TOTAL CELLS COUNTED 100
[2019-03-19] MEDS: levoFLOXACIN 250mg tablet PO SCH (11:22)
--- NOTE | 2019-03-19 11:23 | NUR ---
Patient was very lethargic, was able to arouse. Patient is intermittently confused, checked blood glucose again and was 77. Gave the patient a juice and he seemed to become more alert. Sitter still at bedside, will continue to monitor.
--- NOTE | 2019-03-19 17:11 | NUR ---
Received a call from Mary from MRI she stated that she would have to " speak to a radiologist regarding the swan sequences that were ordered and she would have to get the table ready which would take a half an hour". Patient is ready to go at this time which I informed the radiologist the patient was ready now. Will continue to monitor closely and sitter is at bedside.
--- NOTE | 2019-03-19 17:21 | NUR ---
I called Dr. Jordan regarding my findings of pt's neuro assessment; left arm ataxia on the neuro exam and nihss exam. The ataxia is minimal; I asked him if he wanted me to call the [facility] or if he was going to follow Dr. Thomson's recommendations to treat after mri of brain is done. He told me that he is dealing with Dr. Luis and does not need SOC called at this time.
--- NOTE | 2019-03-19 17:24 | NUR ---
Patient went down for MRI and MRA accompanied by RN.
--- NOTE | 2019-03-19 18:26 | NUR ---
Problems reprioritized. Patient report given, questions answered & plan of care reviewed with Guido STARK.
--- NOTE | 2019-03-19 18:38 | NUR ---
Patient in room PCU 3027Z. I have received report from LINCOLN Merritt and had the opportunity to ask questions and assume patient care. Patient asleep for bedside report. Sitter in room. Will continue to monitor closely.
--- NOTE | 2019-03-19 19:12 | NUR ---
Scanner not working at time of medication administration.
[2019-03-19] MEDS: atorvastatin 20mg tablet PO SCH (20:56)
[2019-03-19] MEDS: lactulose 20gm/30ml cup PO SCH (20:56)
[2019-03-19] MEDS: tamsulosin 0.4mg capsule PO SCH (20:56)
[2019-03-19] MEDS: insulin glargine (Lantus) pen - multi-dose SQ SCH (21:01)
--- NOTE | 2019-03-20 00:48 | NUR ---
Per CT of head, patient has small bleed. Addendum: 03/20/19 at 0049 by Nicholas Gongora RN Amended: Links added.
[2019-03-20 02:00] VITALS: BP 138/58
[2019-03-20 04:53] LABS: BASOPHILS % (AUTO) 0.1 % (0-1); EOSINOPHILS # (AUTO) 0.1 X10'3 (0-0.9); EOSINOPHILS % (AUTO) 0.7 % (0-6); HEMATOCRIT 22.9 % (42.0-52.0); HEMOGLOBIN 7.5 g/dl (14.0-17.9); LYMPHOCYTES # (AUTO) 0.7 X10'3 (1.1-4.8); LYMPHOCYTES % (AUTO) 5.8 % (21-51); MEAN CORPUSCULAR HEMOGLOBIN 27.9 PG (27.0-31.0); MEAN CORPUSCULAR HGB CONC 32.7 g/dL (33.0-36.5); MEAN CORPUSCULAR VOLUME 85.3 FL (78-98); MEAN PLATELET VOLUME 9.6 FL (7.4-10.4); MONOCYTES # (AUTO) 2.7 X10'3 (0-0.9); MONOCYTES % (AUTO) 23.3 % (2-12); NEUTROPHILS # (AUTO) 8.1 X10'3 (1.8-7.7); NEUTROPHILS % (AUTO) 70.1 % (42-75); PLATELET COUNT 86 X10'3 (140-440); RED BLOOD COUNT 2.69 X10'6 (4.70-6.10); RED CELL DISTRIBUTION WIDTH 15.8 % (11.5-14.5); WHITE BLOOD COUNT 11.6 X10'3 (4.5-11.0)
[2019-03-20 05:28] LABS: ALBUMIN 2.7 G/DL (3.4-5.0); ANION GAP 14 (8-16); BLOOD UREA NITROGEN 40 MG/DL (7-18); BUN/CREATININE RATIO 5.1 (5.4-32.0); CALCIUM 6.6 MG/DL (8.5-10.1); CHLORIDE 99 MMOL/L (99-107); GLUCOSE 120 MG/DL (70-104); PHOSPHORUS 3.3 MG/DL (2.3-4.5); POTASSIUM 3.3 MMOL/L (3.5-5.1); SODIUM 138 MMOL/L (135-145); TOTAL CARBON DIOXIDE 25.3 MMOL/L (24-32); eGFR 7 ML/MIN
[2019-03-20 06:00] VITALS: BP 126/59
--- NOTE | 2019-03-20 06:35 | NUR ---
Problems reprioritized. Patient report given, questions answered & plan of care reviewed with LINCOLN Vicente.
[2019-03-20] MEDS: lactobacillus rhamnosus 10,000 MMU CELLS/CAPSULE PO SCH ×2 (07:30→20:42)
[2019-03-20] MEDS: famotidine 20mg tablet PO SCH ×2 (07:30→20:44)
[2019-03-20] MEDS: ipratropium 0.5 MG/2.5ML nebule IH SCH ×2 (08:25→20:14)
[2019-03-20] MEDS ORDERED: normal saline 1000ml 100 ML IV PRN (09:45)
[2019-03-20] MEDS ORDERED: normal saline 1000ml 250 ML IV PRN (09:45)
[2019-03-20] MEDS ORDERED: epoetin 20,000 units/ml inj IV ONE (09:45)
[2019-03-20] MEDS ORDERED: heparin 1,000 units/ml 10ml inj HE ONE ×2 (09:50)
[2019-03-20 10:43] LABS: PLATELET ESTIMATE DECREASED; TOTAL CELLS COUNTED 100
[2019-03-20 10:44] LABS: TOXIC VACUOLATION 1+
[2019-03-20] MEDS: levoFLOXACIN 250mg tablet PO SCH (10:48)
[2019-03-20 11:00] VITALS: BP 122/56
--- NOTE | 2019-03-20 13:09 | NUR ---
Patient in room PCU 3027. I have received report from LINCOLN Vicente and had the opportunity to ask questions and assume patient care.
[2019-03-20 15:00] VITALS: BP 148/75
[2019-03-20 18:00] VITALS: BP 160/89
--- NOTE | 2019-03-20 18:19 | NUR ---
Problems reprioritized. Patient report given, questions answered & plan of care reviewed with LINCOLN Goldstein.
--- NOTE | 2019-03-20 18:27 | NUR ---
Patient in room PCU 3027. I have received report from Chase STARK and had the opportunity to ask questions and assume patient care.
[2019-03-20] MEDS: atorvastatin 20mg tablet PO SCH (20:43)
[2019-03-20] MEDS: tamsulosin 0.4mg capsule PO SCH (20:43)
[2019-03-20] MEDS: lactulose 20gm/30ml cup PO SCH (20:44)
[2019-03-20] MEDS: insulin Lispro (HumaLOG) vial - multi-dose SQ SCH (21:00)
[2019-03-20] MEDS: insulin glargine (Lantus) pen - multi-dose SQ SCH (21:03)
[2019-03-20 23:00] VITALS: BP 145/79
[2019-03-21 03:00] VITALS: BP 109/70
[2019-03-21 04:56] LABS: BASOPHILS % (AUTO) 0.1 % (0-1); EOSINOPHILS # (AUTO) 0.1 X10'3 (0-0.9); EOSINOPHILS % (AUTO) 0.6 % (0-6); HEMATOCRIT 22.7 % (42.0-52.0); HEMOGLOBIN 7.3 g/dl (14.0-17.9); LYMPHOCYTES # (AUTO) 0.8 X10'3 (1.1-4.8); LYMPHOCYTES % (AUTO) 7.4 % (21-51); MEAN CORPUSCULAR HEMOGLOBIN 27.8 PG (27.0-31.0); MEAN CORPUSCULAR HGB CONC 32.4 g/dL (33.0-36.5); MEAN CORPUSCULAR VOLUME 85.9 FL (78-98); MEAN PLATELET VOLUME 9.4 FL (7.4-10.4); MONOCYTES # (AUTO) 2.6 X10'3 (0-0.9); MONOCYTES % (AUTO) 22.5 % (2-12); NEUTROPHILS # (AUTO) 7.9 X10'3 (1.8-7.7); NEUTROPHILS % (AUTO) 69.4 % (42-75); PLATELET COUNT 90 X10'3 (140-440); RED BLOOD COUNT 2.64 X10'6 (4.70-6.10); RED CELL DISTRIBUTION WIDTH 16.1 % (11.5-14.5); WHITE BLOOD COUNT 11.4 X10'3 (4.5-11.0)
[2019-03-21 05:15] LABS: ALBUMIN 2.3 G/DL (3.4-5.0); ANION GAP 7 (8-16); BLOOD UREA NITROGEN 21 MG/DL (7-18); BUN/CREATININE RATIO 4.2 (5.4-32.0); CALCIUM 6.8 MG/DL (8.5-10.1); CHLORIDE 104 MMOL/L (99-107); CREATININE 4.98 MG/DL (0.60-1.10); GLUCOSE 82 MG/DL (70-104); PHOSPHORUS 2.8 MG/DL (2.3-4.5); POTASSIUM 3.5 MMOL/L (3.5-5.1); SODIUM 139 MMOL/L (135-145); TOTAL CARBON DIOXIDE 27.6 MMOL/L (24-32); eGFR 11 ML/MIN
[2019-03-21 06:00] VITALS: BP 146/61
--- NOTE | 2019-03-21 06:04 | NUR ---
Patient in room PCU 3027. I have received report from LINCOLN Goldstein and had the opportunity to ask questions and assume patient care.
--- NOTE | 2019-03-21 06:06 | NUR ---
Problems reprioritized. Patient report given, questions answered & plan of care reviewed with Chase STARK.
[2019-03-21 06:36] LABS: ANISOCYTOSIS 1+; PLATELET ESTIMATE DECREASED; TOTAL CELLS COUNTED 100
[2019-03-21] MEDS: lactobacillus rhamnosus 10,000 MMU CELLS/CAPSULE PO SCH ×2 (07:17→20:22)
[2019-03-21] MEDS: famotidine 20mg tablet PO SCH ×2 (07:17→20:22)
[2019-03-21] MEDS: insulin Lispro (HumaLOG) vial - multi-dose SQ SCH (08:40)
[2019-03-21] MEDS: ipratropium 0.5 MG/2.5ML nebule IH SCH ×2 (09:03→20:59)
[2019-03-21 11:00] VITALS: BP 99/63
[2019-03-21] MEDS: levoFLOXACIN 250mg tablet PO SCH (11:17)
--- NOTE | 2019-03-21 12:57 | NUR ---
promotional table spacer PAGER ID: [phone] MESSAGE: [id number] Derik Mariee-scan results were normal. LINCOLN Stone Ext [phone] Addendum: 03/21/19 at 1312 by Chase Ruiz RN wrong patient.
[2019-03-21] MEDS: acetaminophen 325mg tablet PO PRN (14:09)
[2019-03-21 15:00] VITALS: BP 143/61
--- NOTE | 2019-03-21 18:15 | NUR ---
Patient in room PCU 3027. I have received report from Chase STARK and had the opportunity to ask questions and assume patient care.
--- NOTE | 2019-03-21 18:16 | NUR ---
Problems reprioritized. Patient report given, questions answered & plan of care reviewed with LINCOLN Neff.
[2019-03-21 19:00] VITALS: BP 145/66
[2019-03-21] MEDS: lactulose 20gm/30ml cup PO SCH (20:22)
[2019-03-21] MEDS: atorvastatin 20mg tablet PO SCH (20:22)
[2019-03-21] MEDS: tamsulosin 0.4mg capsule PO SCH (20:22)
[2019-03-21] MEDS: insulin glargine (Lantus) pen - multi-dose SQ SCH (21:00)
[2019-03-21 23:00] VITALS: BP 106/62
[2019-03-22] MEDS: temazepam 15mg capsule PO PRN (00:55)
[2019-03-22 03:00] VITALS: BP 121/65
[2019-03-22 05:12] LABS: BASOPHILS % (AUTO) 0.2 % (0-1); EOSINOPHILS # (AUTO) 0.2 X10'3 (0-0.9); EOSINOPHILS % (AUTO) 2.3 % (0-6); HEMATOCRIT 22.2 % (42.0-52.0); HEMOGLOBIN 7.4 g/dl (14.0-17.9); LYMPHOCYTES % (AUTO) 9.9 % (21-51); MEAN CORPUSCULAR HEMOGLOBIN 28.5 PG (27.0-31.0); MEAN CORPUSCULAR HGB CONC 33.2 g/dL (33.0-36.5); MEAN CORPUSCULAR VOLUME 85.9 FL (78-98); MONOCYTES # (AUTO) 1.3 X10'3 (0-0.9); MONOCYTES % (AUTO) 13.7 % (2-12); NEUTROPHILS # (AUTO) 7.2 X10'3 (1.8-7.7); NEUTROPHILS % (AUTO) 73.9 % (42-75); PLATELET COUNT 88 X10'3 (140-440); RED BLOOD COUNT 2.59 X10'6 (4.70-6.10); WHITE BLOOD COUNT 9.7 X10'3 (4.5-11.0)
[2019-03-22 05:21] LABS: ALBUMIN 2.2 G/DL (3.4-5.0); ANION GAP 10 (8-16); BLOOD UREA NITROGEN 31 MG/DL (7-18); BUN/CREATININE RATIO 5.3 (5.4-32.0); CALCIUM 6.9 MG/DL (8.5-10.1); CHLORIDE 101 MMOL/L (99-107); CREATININE 5.82 MG/DL (0.60-1.10); GLUCOSE 101 MG/DL (70-104); PHOSPHORUS 3.9 MG/DL (2.3-4.5); POTASSIUM 3.3 MMOL/L (3.5-5.1); SODIUM 137 MMOL/L (135-145); TOTAL CARBON DIOXIDE 26.3 MMOL/L (24-32); eGFR 9 ML/MIN
[2019-03-22 06:00] VITALS: BP 131/54
--- NOTE | 2019-03-22 06:00 | NUR ---
Problems reprioritized. Patient report given, questions answered & plan of care reviewed with Chase STARK.
--- NOTE | 2019-03-22 06:09 | NUR ---
Patient in room PCU 3017. I have received report from LINCOLN Neff and had the opportunity to ask questions and assume patient care.
[2019-03-22] MEDS: lactobacillus rhamnosus 10,000 MMU CELLS/CAPSULE PO SCH ×2 (07:54→20:58)
[2019-03-22] MEDS: famotidine 20mg tablet PO SCH ×2 (07:54→20:58)
[2019-03-22] MEDS ORDERED: normal saline 1000ml 250 ML IV PRN (08:00)
[2019-03-22] MEDS ORDERED: epoetin 20,000 units/ml inj IV ONE (08:00)
[2019-03-22] MEDS ORDERED: heparin 1,000unit/ml 10ml vial 10 ML IV ONE (08:00)
[2019-03-22] MEDS ORDERED: heparin 1,000 units/ml 10ml inj HE ONE ×2 (08:00)
[2019-03-22] MEDS: ipratropium 0.5 MG/2.5ML nebule IH SCH ×2 (08:31→21:23)
--- NOTE | 2019-03-22 08:45 | NUR ---
Patient in room PCU 3017. I have received report from LINCOLN Stone and had the opportunity to ask questions and assume patient care.
[2019-03-22 11:00] VITALS: BP 137/66
[2019-03-22] MEDS: levoFLOXACIN 250mg tablet PO SCH (13:16)
[2019-03-22 15:00] VITALS: BP 95/77
[2019-03-22] MEDS: acetaminophen 325mg tablet PO PRN ×2 (16:32→22:30)
[2019-03-22 18:00] VITALS: BP 124/52
--- NOTE | 2019-03-22 18:16 | NUR ---
Problems reprioritized. Patient report given, questions answered & plan of care reviewed with LINCOLN Jerry.
[2019-03-22] MEDS: lactulose 20gm/30ml cup PO SCH (20:58)
[2019-03-22] MEDS: atorvastatin 20mg tablet PO SCH (20:58)
[2019-03-22] MEDS: tamsulosin 0.4mg capsule PO SCH (20:58)
[2019-03-22] MEDS: insulin glargine (Lantus) pen - multi-dose SQ SCH (21:00)
[2019-03-22 22:00] VITALS: BP 132/71
[2019-03-23] VITALS (11 sets, daily range): BP systolic 112–141; BP diastolic 54–73
[2019-03-23 05:34] LABS: ALBUMIN 2.2 G/DL (3.4-5.0); ANION GAP 6 (8-16); BLOOD UREA NITROGEN 21 MG/DL (7-18); CALCIUM 7.1 MG/DL (8.5-10.1); CHLORIDE 103 MMOL/L (99-107); CREATININE 4.23 MG/DL (0.60-1.10); GLUCOSE 96 MG/DL (70-104); PHOSPHORUS 2.8 MG/DL (2.3-4.5); POTASSIUM 3.9 MMOL/L (3.5-5.1); SODIUM 139 MMOL/L (135-145); eGFR 14 ML/MIN
[2019-03-23 06:08] LABS: BASOPHILS % (AUTO) 0.2 % (0-1); EOSINOPHILS # (AUTO) 0.1 X10'3 (0-0.9); EOSINOPHILS % (AUTO) 1.7 % (0-6); LYMPHOCYTES % (AUTO) 12.6 % (21-51); MEAN CORPUSCULAR HEMOGLOBIN 28.5 PG (27.0-31.0); MEAN CORPUSCULAR HGB CONC 33.1 g/dL (33.0-36.5); MONOCYTES # (AUTO) 1.1 X10'3 (0-0.9); MONOCYTES % (AUTO) 13.9 % (2-12); NEUTROPHILS # (AUTO) 5.6 X10'3 (1.8-7.7); NEUTROPHILS % (AUTO) 71.6 % (42-75); PLATELET COUNT 100 X10'3 (140-440); RED BLOOD COUNT 2.43 X10'6 (4.70-6.10); RED CELL DISTRIBUTION WIDTH 16.2 % (11.5-14.5); WHITE BLOOD COUNT 7.9 X10'3 (4.5-11.0)
[2019-03-23 06:23] LABS: HEMATOCRIT 20.9 % (42.0-52.0); HEMOGLOBIN 6.9 g/dl (14.0-17.9)
--- NOTE | 2019-03-23 06:27 | NUR ---
Critical H&H of 6.9/20.9 reported to Bayron Lau NP. No new orders. Pt to have HD tomorrow 03/24
--- NOTE | 2019-03-23 06:35 | NUR ---
Patient in room PCU 3017. I have received report from LINCOLN Neff and had the opportunity to ask questions and assume patient care.
--- NOTE | 2019-03-23 06:45 | NUR ---
Problems reprioritized. Patient report given, questions answered & plan of care reviewed with Ximena RN.
[2019-03-23] MEDS: ipratropium 0.5 MG/2.5ML nebule IH SCH ×2 (09:06→21:11)
[2019-03-23] MEDS: lactobacillus rhamnosus 10,000 MMU CELLS/CAPSULE PO SCH ×2 (09:07→21:20)
[2019-03-23] MEDS: famotidine 20mg tablet PO SCH ×2 (09:08→21:20)
--- NOTE | 2019-03-23 11:15 | NUR ---
Sylvia Tate NP ordered to DC neuro checks, no anti-thrombic therapy & DC Q6h bladder scans. All of these interventions are now completed.
--- NOTE | 2019-03-23 15:07 | NUR ---
Reassessment: Pt c/o difficulty swallowing. Pt currently on a [facility] soft renal CHO controlled diet. Pt seen at bedside reports difficulty swallowing dry food. Pt agreeable to gravy on meat BIDLD and grind all food, d/w dietary. ST has been consulted for BSS. Pt also requests scrambled eggs with breakfast, d/w dietary. Pt was provided with RD contact information and encouraged to reach out. Pt continues to be dialysis dependent per MD notes. LBM 03/22. Will continue to follow. Rec: 1. Continue carb controlled/renal diet with adjustments per ST recs pending BSS 2. Grind all; gravy on meat BIDLD; eggs with breakfast 3. Encourage PO intake 4. Glucerna TIDWM pending MD verification prior to sending on trays 5. wt w/ HD Addendum: 03/23/19 at [address] Amended: Links added.
--- NOTE | 2019-03-23 18:20 | NUR ---
Problems reprioritized. Patient report given, questions answered & plan of care reviewed with LINCOLN Neff.
--- NOTE | 2019-03-23 18:20 | NUR ---
Patient in room PCU 3017. I have received report from Ximena STARK and had the opportunity to ask questions and assume patient care.
[2019-03-23] MEDS: insulin glargine (Lantus) pen - multi-dose SQ SCH (21:00)
[2019-03-23] MEDS: lactulose 20gm/30ml cup PO SCH (21:20)
[2019-03-23] MEDS: tamsulosin 0.4mg capsule PO SCH (21:20)
[2019-03-23] MEDS: atorvastatin 20mg tablet PO SCH (21:20)
[2019-03-23] MEDS: temazepam 15mg capsule PO PRN (22:26)
[2019-03-24] VITALS (7 sets, daily range): BP systolic 114–167; BP diastolic 54–92
[2019-03-24 03:49] LABS: OCCULT BLOOD STOOL NEGATIVE (Neg)
--- NOTE | 2019-03-24 06:36 | NUR ---
Problems reprioritized. Patient report given, questions answered & plan of care reviewed with Adali STARK.
--- NOTE | 2019-03-24 06:51 | NUR ---
Patient in room PCU 3017. I have received report from Aishwarya STARK who gave me the opportunity to ask questions and assume patient care.
--- NOTE | 2019-03-24 07:47 | NUR ---
MD contacted for Complaint of Head Ache on awakening this morning, severe and persistent Orders received. CT head is completed.
[2019-03-24] MEDS: lactobacillus rhamnosus 10,000 MMU CELLS/CAPSULE PO SCH ×2 (08:06→20:04)
[2019-03-24] MEDS: famotidine 20mg tablet PO SCH ×2 (08:09→20:04)
[2019-03-24] MEDS: acetaminophen 325mg tablet PO PRN (08:09)
--- NOTE | 2019-03-24 08:20 | NUR ---
Left sided weakness is noted: Pt. feeling generalized weakness on left side with minor difficulty walking and moving. Left sided drift is noted. Neuro checks are initiated.
[2019-03-24] MEDS: ipratropium 0.5 MG/2.5ML nebule IH SCH ×2 (09:37→20:46)
[2019-03-24 10:42] LABS: BASOPHILS # (AUTO) 0.1 X10'3 (0-0.2); BASOPHILS % (AUTO) 0.6 % (0-1); EOSINOPHILS # (AUTO) 0.2 X10'3 (0-0.9); EOSINOPHILS % (AUTO) 1.6 % (0-6); HEMATOCRIT 28.1 % (42.0-52.0); HEMOGLOBIN 9.3 g/dl (14.0-17.9); LYMPHOCYTES # (AUTO) 0.8 X10'3 (1.1-4.8); LYMPHOCYTES % (AUTO) 8.2 % (21-51); MEAN CORPUSCULAR HEMOGLOBIN 28.2 PG (27.0-31.0); MEAN CORPUSCULAR HGB CONC 33.2 g/dL (33.0-36.5); MEAN PLATELET VOLUME 9.2 FL (7.4-10.4); MONOCYTES # (AUTO) 1.3 X10'3 (0-0.9); MONOCYTES % (AUTO) 12.4 % (2-12); NEUTROPHILS # (AUTO) 7.9 X10'3 (1.8-7.7); NEUTROPHILS % (AUTO) 77.2 % (42-75); PLATELET COUNT 102 X10'3 (140-440); RED CELL DISTRIBUTION WIDTH 16.3 % (11.5-14.5); WHITE BLOOD COUNT 10.2 X10'3 (4.5-11.0)
[2019-03-24 10:53] LABS: ALANINE AMINOTRANSFERASE 25 U/L (12-78); ALBUMIN 2.5 G/DL (3.4-5.0); ALKALINE PHOSPHATASE 63 IU/L (46-116); ANION GAP 9 (8-16); ASPARTATE AMINO TRANSFERASE 22 U/L (10-37); BILIRUBIN,TOTAL 0.8 MG/DL (0.1-1.0); BLOOD UREA NITROGEN 31 MG/DL (7-18); BUN/CREATININE RATIO 5.1 (5.4-32.0); CALCIUM 7.1 MG/DL (8.5-10.1); CHLORIDE 100 MMOL/L (99-107); CREATININE 6.05 MG/DL (0.60-1.10); GLUCOSE 136 MG/DL (70-104); MAGNESIUM 1.7 MG/DL (1.5-2.4); PHOSPHORUS 2.9 MG/DL (2.3-4.5); POTASSIUM 3.9 MMOL/L (3.5-5.1); SODIUM 136 MMOL/L (135-145); TOTAL CARBON DIOXIDE 27.3 MMOL/L (24-32); TOTAL PROTEIN 5.1 G/DL (6.4-8.2); eGFR 9 ML/MIN
[2019-03-24] MEDS: aspirin 81mg tablet.DR PO SCH (17:06)
--- NOTE | 2019-03-24 18:15 | NUR ---
Patient in room PCU 3017. I have received report from Adali STARK and had the opportunity to ask questions and assume patient care.
[2019-03-24] MEDS: tamsulosin 0.4mg capsule PO SCH (20:03)
[2019-03-24] MEDS: atorvastatin 20mg tablet PO SCH (20:04)
[2019-03-24] MEDS: lactulose 20gm/30ml cup PO SCH (20:05)
[2019-03-24] MEDS: insulin glargine (Lantus) pen - multi-dose SQ SCH (21:00)
[2019-03-25 02:00] VITALS: BP 121/53
[2019-03-25 06:00] VITALS: BP 167/92
--- NOTE | 2019-03-25 06:35 | NUR ---
Problems reprioritized. Patient report given, questions answered & plan of care reviewed with Adali STARK.
[2019-03-25] MEDS: acetaminophen 325mg tablet PO PRN (06:58)
[2019-03-25] MEDS ORDERED: normal saline 1000ml 250 ML IV PRN (08:00)
[2019-03-25] MEDS ORDERED: epoetin 20,000 units/ml inj IV ONE (08:00)
[2019-03-25] MEDS ORDERED: heparin 1,000 units/ml 10ml inj HE ONE ×2 (08:00)
[2019-03-25] MEDS ORDERED: heparin 1,000unit/ml 10ml vial 10 ML IV ONE (08:00)
[2019-03-25] MEDS: ipratropium 0.5 MG/2.5ML nebule IH SCH ×2 (08:37→20:00)
[2019-03-25] MEDS: lactobacillus rhamnosus 10,000 MMU CELLS/CAPSULE PO SCH ×2 (08:41→20:21)
[2019-03-25] MEDS: aspirin 81mg tablet.DR PO SCH (08:41)
[2019-03-25] MEDS: famotidine 20mg tablet PO SCH ×2 (08:41→20:21)
[2019-03-25 11:00] VITALS: BP 102/59
[2019-03-25 15:00] VITALS: BP 135/74
--- NOTE | 2019-03-25 18:15 | NUR ---
Patient in room PCU 3017. I have received report from Adali STARK and had the opportunity to ask questions and assume patient care.
[2019-03-25 19:00] VITALS: BP 161/93
--- NOTE | 2019-03-25 19:00 | NUR ---
Patient got up quickly, with his walker, to get to the bathroom. PCT's came in to help him and he got aggravated, stating he doesn't need them and he's not going to fall. He told them to go away. I spoke with him afterwards about the risk of falling and asked him to use his call light anytime he needs to ambulate. Patient expressed his frustration of being here and agreed to use his call light appropriately to avoid falling.
[2019-03-25] MEDS: atorvastatin 20mg tablet PO SCH (20:21)
[2019-03-25] MEDS: tamsulosin 0.4mg capsule PO SCH (20:21)
[2019-03-25] MEDS: lactulose 20gm/30ml cup PO SCH (20:21)
[2019-03-25] MEDS: insulin glargine (Lantus) pen - multi-dose SQ SCH (21:00)
[2019-03-25 23:00] VITALS: BP 123/59
[2019-03-26 03:00] VITALS: BP 126/56
[2019-03-26 06:00] VITALS: BP 150/77
--- NOTE | 2019-03-26 06:39 | NUR ---
Problems reprioritized. Patient report given, questions answered & plan of care reviewed with Travis RN and Christie RN.
--- NOTE | 2019-03-26 06:56 | NUR ---
Patient in room PCU 3017. I have received report from LINCOLN CARSON and had the opportunity to ask questions and assume patient care.
[2019-03-26] MEDS: ipratropium 0.5 MG/2.5ML nebule IH SCH (07:18)
[2019-03-26] MEDS: famotidine 20mg tablet PO SCH (07:33)
[2019-03-26] MEDS: aspirin 81mg tablet.DR PO SCH (07:33)
[2019-03-26] MEDS: lactobacillus rhamnosus 10,000 MMU CELLS/CAPSULE PO SCH (07:33)
--- NOTE | 2019-03-26 10:11 | NUR ---
Reassessment: Pt s/p BSS this morning with ST recs to continue current diet as patient is tolerating. Documented PO intake significantly improved now averaging 75-100% likely meeting nutrient needs. Per MD notes pt stable on dialysis. LBM 03/25. Will continue to follow. Reassessment: Pt c/o difficulty swallowing. Pt currently on a [facility] soft renal CHO controlled diet. Pt seen at bedside reports difficulty swallowing dry food. Pt agreeable to gravy on meat BIDLD and grind all food, d/w dietary. ST has been consulted for BSS. Pt also requests scrambled eggs with breakfast, d/w dietary. Pt was provided with RD contact information and encouraged to reach out. Pt continues to be dialysis dependent per MD notes. LBM 03/22. Will continue to follow. Rec: 1. Continue [facility] soft carb controlled/renal diet 2. Grind all; gravy on meat BIDLD; eggs with breakfast 3. Encourage PO intake 4. Glucerna TIDWM pending MD verification prior to sending on trays 5. wt w/ HD Addendum: 03/26/19 at [address] Amended: Links added.
[2019-03-26 11:00] VITALS: BP 130/60
[2019-03-26] MEDS: acetaminophen 325mg tablet PO PRN (14:58)
[2019-03-26 15:00] VITALS: BP 102/80
[2019-03-26] MEDS ORDERED: VIT1TABL48 PO (16:05)
[2019-03-26] MEDS ORDERED: FAMO20TA8 PO (16:05)
[2019-03-26] MEDS ORDERED: ASPI-1071 PO (16:05)
[2019-03-26 16:06] LABS: CLARITY,URINE SLIGHTLY CLOUDY (Clear); COLOR,URINE YELLOW (Yellow); GLUCOSE, URINE NEGATIVE (Neg); KETONES,URINE NEGATIVE (Neg); LEUKOCYTE ESTERASE ,URINE LARGE (Neg); NITRITES, URINE NEGATIVE (Neg); OCCULT BLOOD,URINE MODERATE (Neg); PROTEIN,URINE 30 mg/dl (Neg)
[2019-03-26 16:23] LABS: UA COLLECTION TYPE CLN CATCH MIDSTREAM
[2019-03-26 16:39] LABS: BACTERIA,URINE 4+ /HPF (Neg); RENAL CELLS, URINE FEW /HPF; SQUAMOUS EPITHELIAL CELL,UR MODERATE /LPF (FEW); WBC,URINE TNTC /HPF (0-4)
[2019-03-26 16:40] LABS: HYALINE CASTS 0-3 /LPF (NEGATIVE); WBC CLUMPS,URINE FEW /HPF (NEGATIVE)
[2019-03-26 16:42] LABS: RBC,URINE NONE SEEN /HPF (0-2)
--- NOTE | 2019-03-26 17:00 | NUR ---
refused accucheck. waiting for ride for home.
--- NOTE | 2019-03-26 18:26 | NUR ---
AUTOMATIC FURNACE OPERATORcentral office operator supervisor: I have reviewed and agree with all interventions, assessments performed and documented by LINCOLN LÓPEZ.
== END 2019-03-26 18:06 | disposition home health service (06) | DRG 673 ==
LOC: ER 17:59 → PCU 3S 20:58 → CMPBEDREQ 21:38 → PCU 3S 03-16 00:24
PROVIDERS: ADMIT Internal Medicine Critical Care Medicine; ATTEND Internal Medicine Critical Care Medicine
PROC: 0JH63XZ Insertion of Tunneled Vascular Access Device into Chest Subcutaneous Tissue and Fascia, Percutaneous Approach (ICD-10-PCS; 2019-03-15)
PROC: 02HV33Z Insertion of Infusion Device into Superior Vena Cava, Percutaneous Approach (ICD-10-PCS; 2019-03-15)
PROC: B548ZZA Ultrasonography of Superior Vena Cava, Guidance (ICD-10-PCS; 2019-03-15)
PROC: B5181ZA Fluoroscopy of Superior Vena Cava using Low Osmolar Contrast, Guidance (ICD-10-PCS; 2019-03-15)
PROC: 5A1D70Z Performance of Urinary Filtration, Intermittent, Less than 6 Hours Per Day (ICD-10-PCS; 2019-03-16)
PROC: 5A1D70Z Performance of Urinary Filtration, Intermittent, Less than 6 Hours Per Day (ICD-10-PCS; 2019-03-18)
PROC: 5A1D70Z Performance of Urinary Filtration, Intermittent, Less than 6 Hours Per Day (ICD-10-PCS; 2019-03-20)
PROC: 5A1D70Z Performance of Urinary Filtration, Intermittent, Less than 6 Hours Per Day (ICD-10-PCS; 2019-03-22)
PROC: 30233N1 Transfusion of Nonautologous Red Blood Cells into Peripheral Vein, Percutaneous Approach (ICD-10-PCS; principal; 2019-03-23)
PROC: 5A1D70Z Performance of Urinary Filtration, Intermittent, Less than 6 Hours Per Day (ICD-10-PCS; 2019-03-25)
DX: N17.0 Acute kidney failure with tubular necrosis (principal); I21.4 Non-ST elevation (NSTEMI) myocardial infarction; I13.0 Hypertensive heart and chronic kidney disease with heart failure and stage 1 through stage 4 chronic kidney disease, or unspecified chronic kidney disease; G93.49 Other encephalopathy; D64.9 Anemia, unspecified; E11.22 Type 2 diabetes mellitus with diabetic chronic kidney disease; E78.00 Pure hypercholesterolemia, unspecified; E83.51 Hypocalcemia; I48.91 Unspecified atrial fibrillation; I50.9 Heart failure, unspecified; M10.9 Gout, unspecified; J43.9 Emphysema, unspecified; N18.3 Chronic kidney disease, stage 3 (moderate); Z79.4 Long term (current) use of insulin; Z87.891 Personal history of nicotine dependence; Z99.2 Dependence on renal dialysis; Z99.81 Dependence on supplemental oxygen; Z88.0 Allergy status to penicillin; Z88.8 Allergy status to other drugs, medicaments and biological substances; Z79.899 Other long term (current) drug therapy
CPT/HCPCS: 36415; 36558; 36600; 70450; 70544; 70551; 71045; 71250; 76775; 76937; 77001; 80053; 80069; 81001; 82272; 82550; 82570; 82728; 82803; 82948; 83036; 83540; 83550; 83605; 83735; 83880; 83935; 84100; 84132; 84133; 84145; 84156; 84300; 84484; 85018; 85025; 85027; 85610; 85730; 86803; 86885; 86900; 86901; 86920; 87040; 87077; 87081; 87088; 87186; 87207; 87340; 90935; 92508; 92616; 93005; 93306; 94640; 94760; 96374; 97110; 97116; 97161; 99152; 99153; 99285; A9270; C1750; C1894; G0257; G0378; J1644; J1815; J1956; J2150; J2250; J2270; J2405; J2930; J3010; P9016; Q4081

== ENCOUNTER 2019-06-14 06:32 | Emergency (ER) | payer MEDICARE, MEDICAID ==
[~2019-06-14] VITALS: Ht 175.3 cm; Wt 97.0 kg
[~2019-06-14 06:32] MED LIST changes: +ALLO100T PO; +ASPI-1071 PO; +ATRIN IH; +CALC0.2511 PO; -COLC0.6C3 PO; +FAMO20TA8 PO; +FLO0.4C PO; -GLIM4TAB4 PO; +LANTUS SQ; +LINA5TAB4 PO; -METF1000 PO; +METO1TAB25 PO; -MICO14CR5 TOP; +SIMV-42 PO; +TIOT18CA3 IH; +VIT1TABL48 PO
[2019-06-14 07:06] LABS: BASOPHILS # (AUTO) 0.1 X10'3 (0-0.2); BASOPHILS % (AUTO) 0.7 % (0-1); EOSINOPHILS # (AUTO) 0.2 X10'3 (0-0.9); EOSINOPHILS % (AUTO) 2.2 % (0-6); HEMATOCRIT 44.2 % (42.0-52.0); HEMOGLOBIN 14.6 g/dl (14.0-17.9); LYMPHOCYTES # (AUTO) 1.5 X10'3 (1.1-4.8); LYMPHOCYTES % (AUTO) 15.9 % (21-51); MEAN CORPUSCULAR HEMOGLOBIN 29.4 PG (27.0-31.0); MEAN CORPUSCULAR HGB CONC 33.1 g/dL (33.0-36.5); MEAN PLATELET VOLUME 10.2 FL (7.4-10.4); NEUTROPHILS # (AUTO) 6.8 X10'3 (1.8-7.7); NEUTROPHILS % (AUTO) 71.2 % (42-75); PLATELET COUNT 137 X10'3 (140-440); RED BLOOD COUNT 4.97 X10'6 (4.70-6.10); RED CELL DISTRIBUTION WIDTH 16.8 % (11.5-14.5); WHITE BLOOD COUNT 9.6 X10'3 (4.5-11.0)
[2019-06-14 07:20] LABS: PARTIAL THROMBOPLASTIN TIME 29 SECONDS (22-32)
[2019-06-14 07:22] LABS: ALANINE AMINOTRANSFERASE 12 U/L (12-78); ALBUMIN 3.5 G/DL (3.4-5.0); ALBUMIN/GLOBULIN RATIO 1.1 (1.1-1.5); ALKALINE PHOSPHATASE 82 IU/L (46-116); ANION GAP 12 (8-16); ASPARTATE AMINO TRANSFERASE 11 U/L (10-37); BILIRUBIN,TOTAL 0.8 MG/DL (0.1-1.0); CALCIUM 9.6 MG/DL (8.5-10.1); CHLORIDE 104 MMOL/L (99-107); GLUCOSE 124 MG/DL (70-104); POTASSIUM 4.6 MMOL/L (3.5-5.1); SODIUM 141 MMOL/L (135-145); TOTAL CARBON DIOXIDE 24.6 MMOL/L (24-32); TOTAL PROTEIN 6.8 G/DL (6.4-8.2)
[2019-06-14 07:29] LABS: BLOOD UREA NITROGEN 22 MG/DL (7-18); CREATININE 7.44 MG/DL (0.60-1.10); eGFR 7 ML/MIN
--- NOTE | 2019-06-14 08:55 | NUR ---
[facility] CALLED FOR TRANSPORT TO [facility]. TRANSPORT ARRANGED FOR 10AM.
[2019-06-14 10:11] VITALS: BP 146/78
--- NOTE | 2019-06-14 10:20 | NUR ---
julia cargo left with pt before the IV could be discontinued, contacted [facility] asking for them to dc the IV, spoke with a generation manager named Justin who was giving me difficulties and ended up saying that he would look into it. charge nurse was advised.
== END 2019-06-14 10:28 | disposition home or self-care (01) ==
LOC: ER 06:32
DX: I12.0 Hypertensive chronic kidney disease with stage 5 chronic kidney disease or end stage renal disease (principal); E11.22 Type 2 diabetes mellitus with diabetic chronic kidney disease; N18.6 End stage renal disease; E78.00 Pure hypercholesterolemia, unspecified; J44.9 Chronic obstructive pulmonary disease, unspecified; Z99.2 Dependence on renal dialysis; Z98.890 Other specified postprocedural states; Z87.891 Personal history of nicotine dependence; Z88.0 Allergy status to penicillin; Z88.8 Allergy status to other drugs, medicaments and biological substances; Z79.82 Long term (current) use of aspirin; Z79.4 Long term (current) use of insulin; Z79.899 Other long term (current) drug therapy
CPT/HCPCS: 36415; 71045; 80053; 83880; 85025; 85610; 85730; 93005; 99284

== ENCOUNTER 2019-09-30 05:52 | Emergency (ER) | payer MEDICARE, MEDICAID ==
[~2019-09-30] VITALS: Ht 175.3 cm; Wt 80.0 kg
[2019-09-30 05:54] VITALS: BP 206/99
[2019-09-30] MEDS ORDERED: BUPIVAcaine/PF 7.5 mg/ml (0.75%) 30ml vial IJ ONE (06:50)
[2019-09-30] MEDS ORDERED: LIDO700A32 TOP (06:55)
[2019-09-30] MEDS ORDERED: BUPIVAcaine/PF 7.5mg/ml (0.75%) 10ml vial IJ ONE (07:00)
== END 2019-09-30 08:09 | disposition home or self-care (01) ==
LOC: ER 05:53
DX: M25.561 Pain in right knee (principal); E78.00 Pure hypercholesterolemia, unspecified; E11.22 Type 2 diabetes mellitus with diabetic chronic kidney disease; N18.6 End stage renal disease; I12.0 Hypertensive chronic kidney disease with stage 5 chronic kidney disease or end stage renal disease; J43.9 Emphysema, unspecified; Z99.2 Dependence on renal dialysis; Z88.0 Allergy status to penicillin; Z88.8 Allergy status to other drugs, medicaments and biological substances; Z79.82 Long term (current) use of aspirin; Z79.4 Long term (current) use of insulin; Z79.899 Other long term (current) drug therapy
CPT/HCPCS: 20552; 73560; 99284

== ENCOUNTER 2020-09-16 10:36 | Day surgery (SDC) | payer MEDICARE, MEDICAID ==
[~2020-09-16] VITALS: Ht 175.3 cm; Wt 83.1 kg
[~2020-09-16 10:36] MED LIST changes: -ASPI-1071 PO; +ASPI-611 PO; -CALC0.2511 PO; -FAMO20TA8 PO; -LANTUS SQ; -LINA5TAB4 PO; +LOSA50TA64 PO; +METO-384 PO; -METO1TAB25 PO; +PANT-47 PO; +PHO667C PO; -SIMV-42 PO; -TIOT18CA3 IH; +VERA180T PO; -VIT1TABL48 PO; +VIT1TABL83 PO
[2020-09-16] MEDS ORDERED: ceFAZolin 2gm in dextrose, iso 50 ML IV ONE (11:00)
[2020-09-16] MEDS ORDERED: FURO80TA3 PO (11:10)
[2020-09-16 12:00] VITALS: BP 121/65
[2020-09-16] MEDS: normal saline 1000ml 1,000 ML IV PRN ×3 (12:53→13:53)
[2020-09-16] MEDS ORDERED: heparin 1,000unit/ml 10ml vial 10 ML ONE (14:08)
[2020-09-16] MEDS ORDERED: LIDOcaine 1%/PF 5ML 10 MG/ML VIAL ONE (14:08)
[2020-09-16] MEDS ORDERED: midazolam 2 mg/2 ml injection ONE (14:08)
[2020-09-16] MEDS ORDERED: clindamycin 600mg/D5W 50ml 50 ML IV ONE (14:09)
[2020-09-16] MEDS ORDERED: fentaNYL/PF 50MCG/1 ML 2ML syringe ONE (14:09)
--- NOTE | 2020-09-16 15:10 | NUR ---
Patient arrived back from IR via gurney. New TDC in place. Dressing CDI, no bleeding noted. Patient denies pain. A&Ox4.
[2020-09-16 15:45] VITALS: BP 147/48
== END 2020-09-16 15:45 | disposition home or self-care (01) ==
LOC: SSTAY O 10:36 → MERGE 13:00 → SSTAY O 15:45
PROVIDERS: ATTEND Radiology Vascular & Interventional Radiology
DX: T82.868A Thrombosis due to vascular prosthetic devices, implants and grafts, initial encounter (principal); N18.6 End stage renal disease; Z88.0 Allergy status to penicillin; Z88.8 Allergy status to other drugs, medicaments and biological substances; Z79.899 Other long term (current) drug therapy; Z98.890 Other specified postprocedural states; Z87.891 Personal history of nicotine dependence; Y83.8 Other surgical procedures as the cause of abnormal reaction of the patient, or of later complication, without mention of misadventure at the time of the procedure; Y92.89 Other specified places as the place of occurrence of the external cause
CPT/HCPCS: 36581; 77001; C1750; C1769; J1644; J2250; J3010; J7030; J3490

== ENCOUNTER 2021-03-20 12:46 | Emergency (ER) | payer MEDICARE, MEDICAID ==
[~2021-03-20] VITALS: Ht 175.3 cm; Wt 80.0 kg
[~2021-03-20 12:46] MED LIST changes: +ASPI-1397 PO; -ASPI-611 PO; -ATRIN IH; +ATRIN INH; +CALC667T6 PO; +FURO80TA3 PO; +LABE200T5 PO; -LOSA50TA64 PO; -METO-384 PO; -PANT-47 PO; +PANT40TA54 PO; +SIMV-45 PO; -VERA180T PO; +VERA180T24 PO; +VIT1CAPS46 PO; -VIT1TABL83 PO; +VITA-268 PO
[2021-03-20 13:20] VITALS: BP 175/101
[2021-03-20 14:07] LABS: BASOPHILS # (AUTO) 0.1 X10'3 (0-0.2); BASOPHILS % (AUTO) 0.6 % (0-1); EOSINOPHILS # (AUTO) 0.2 X10'3 (0-0.9); EOSINOPHILS % (AUTO) 1.4 % (0-6); HEMATOCRIT 34.7 % (42.0-52.0); HEMOGLOBIN 11.3 g/dl (14.0-17.9); LYMPHOCYTES # (AUTO) 0.8 X10'3 (1.1-4.8); LYMPHOCYTES % (AUTO) 5.9 % (21-51); MEAN CORPUSCULAR HEMOGLOBIN 29.7 PG (27.0-31.0); MEAN CORPUSCULAR HGB CONC 32.5 g/dL (33.0-36.5); MEAN CORPUSCULAR VOLUME 91.3 FL (78-98); MONOCYTES # (AUTO) 0.8 X10'3 (0-0.9); NEUTROPHILS % (AUTO) 86.1 % (42-75); PLATELET COUNT 105 X10'3 (140-440); RED CELL DISTRIBUTION WIDTH 18.4 % (11.5-14.5); WHITE BLOOD COUNT 13.9 X10'3 (4.5-11.0)
[2021-03-20 14:23] LABS: ALANINE AMINOTRANSFERASE 27 U/L (12-78); ALBUMIN 3.7 G/DL (3.4-5.0); ALBUMIN/GLOBULIN RATIO 1.3 (1.1-1.5); ALKALINE PHOSPHATASE 87 IU/L (46-116); ANION GAP 16 (8-16); ASPARTATE AMINO TRANSFERASE 21 U/L (10-37); BILIRUBIN,TOTAL 1.5 MG/DL (0.1-1.0); BLOOD UREA NITROGEN 47 MG/DL (7-18); BUN/CREATININE RATIO 5.1 (5.4-32.0); CALCIUM 8.3 MG/DL (8.5-10.1); CHLORIDE 104 MMOL/L (99-107); CREATININE 9.17 MG/DL (0.60-1.10); GLUCOSE 122 MG/DL (70-104); POTASSIUM 5.6 MMOL/L (3.5-5.1); SODIUM 142 MMOL/L (135-145); TOTAL PROTEIN 6.5 G/DL (6.4-8.2); eGFR 6 ML/MIN
[2021-03-20] MEDS ORDERED: azithromycin/NS 500mg/250ml 250 ML IV ONE (14:50)
[2021-03-20] MEDS ORDERED: CefTRIAXone/D5W-Rocephin 1gm 50 ML IV ONE (14:50)
--- NOTE | 2021-03-20 14:52 | NUR ---
PATIENT IS SITTING AT FOOT OF BED WITH FEET ON FLOOR AND NO OXYGEN IN USE. WHEN PATIENT QUESTIONED ABOUT REMOVING OXYGEN HE STATES THAT HE CANNOT BREATHE WITH IT ON. STATES HE HAS BEEN SITTING UP WITHOUT O2 FOR APPROX 10 MINUTES. PATIENT ASKED TO PUT PULSE OX ON FINGER, BUT IS SITTING ON PULSE OX PROBE AND WILL NOT MOVE.
[2021-03-20] MEDS ORDERED: ipratropium/albuterol 3ml nebule NEB ONE (14:55)
--- NOTE | 2021-03-20 15:09 | NUR ---
TC TO [facility] AND NURSE WAS INFORMED THAT PATIENT HAS CHAIR AVAILABLE FOR DIALYSIS TODAY. PROVIDER INFORMED OF THIS. TRANSPORTATION ARRANGEMENTS BEING MADE WITH [facility], TO TAKE PATIENT TO DIALYSIS.
[2021-03-20] MEDS ORDERED: LEVO500T89 PO (15:12)
--- NOTE | 2021-03-20 15:12 | NUR ---
[facility] DIAL[facility] PHONE NUMBER IS [phone]
== END 2021-03-20 15:43 ==
LOC: ER 12:47
DX: R06.02 Shortness of breath (principal); Z20.822 Contact with and (suspected) exposure to COVID-19; R05 Cough; I11.0 Hypertensive heart disease with heart failure; I50.9 Heart failure, unspecified; I12.0 Hypertensive chronic kidney disease with stage 5 chronic kidney disease or end stage renal disease; E11.22 Type 2 diabetes mellitus with diabetic chronic kidney disease; N18.6 End stage renal disease; E87.5 Hyperkalemia; J18.9 Pneumonia, unspecified organism; J44.9 Chronic obstructive pulmonary disease, unspecified; Z99.2 Dependence on renal dialysis; Z98.890 Other specified postprocedural states; Z88.0 Allergy status to penicillin; Z88.8 Allergy status to other drugs, medicaments and biological substances; Z79.82 Long term (current) use of aspirin; Z79.899 Other long term (current) drug therapy
CPT/HCPCS: 71045; 80053; 83880; 84484; 85025; 87635; 93005; 99285; C9803

== ENCOUNTER 2021-04-13 10:49 | Emergency (ER) | payer MEDICARE, MEDICAID ==
[~2021-04-13] VITALS: Ht 175.3 cm; Wt 70.9 kg
[2021-04-13] MEDS ORDERED: albuterol 2.5 MG/3 ML nebule ONE (10:52)
[2021-04-13] MEDS ORDERED: methylPREDNISolone sod succ 125mg/2ml vial IV ONE (11:00)
[2021-04-13] MEDS: albuterol 2.5 MG/3 ML nebule CONTNEB PRN ×2 (11:05→11:06)
[2021-04-13 11:21] LABS: BASOPHILS # (AUTO) 0.1 X10'3 (0-0.2); EOSINOPHILS % (AUTO) 8.1 % (0-6); HEMATOCRIT 34.7 % (42.0-52.0); LYMPHOCYTES # (AUTO) 0.8 X10'3 (1.1-4.8); LYMPHOCYTES % (AUTO) 6.7 % (21-51); MEAN CORPUSCULAR HEMOGLOBIN 29.8 PG (27.0-31.0); MEAN CORPUSCULAR HGB CONC 31.8 g/dL (33.0-36.5); MEAN CORPUSCULAR VOLUME 93.5 FL (78-98); MEAN PLATELET VOLUME 11.7 FL (7.4-10.4); MONOCYTES # (AUTO) 0.6 X10'3 (0-0.9); MONOCYTES % (AUTO) 4.7 % (2-12); NEUTROPHILS # (AUTO) 9.3 X10'3 (1.8-7.7); NEUTROPHILS % (AUTO) 79.5 % (42-75); PLATELET COUNT 101 X10'3 (140-440); RED BLOOD COUNT 3.71 X10'6 (4.70-6.10); RED CELL DISTRIBUTION WIDTH 18.4 % (11.5-14.5); WHITE BLOOD COUNT 11.7 X10'3 (4.5-11.0)
[2021-04-13 11:36] LABS: ALANINE AMINOTRANSFERASE 31 U/L (12-78); ALBUMIN 3.6 G/DL (3.4-5.0); ALBUMIN/GLOBULIN RATIO 1.3 (1.1-1.5); ALKALINE PHOSPHATASE 100 IU/L (46-116); ANION GAP 14 (8-16); ASPARTATE AMINO TRANSFERASE 25 U/L (10-37); BLOOD UREA NITROGEN 27 MG/DL (7-18); BUN/CREATININE RATIO 3.7 (5.4-32.0); CALCIUM 7.8 MG/DL (8.5-10.1); CHLORIDE 108 MMOL/L (99-107); CREATININE 7.25 MG/DL (0.60-1.10); GLUCOSE 179 MG/DL (70-104); POTASSIUM 4.8 MMOL/L (3.5-5.1); SODIUM 144 MMOL/L (135-145); TOTAL CARBON DIOXIDE 21.9 MMOL/L (24-32); TOTAL PROTEIN 6.4 G/DL (6.4-8.2); eGFR 7 ML/MIN
[2021-04-13 13:18] VITALS: BP 169/84
== END 2021-04-13 14:00 | disposition home or self-care (01) ==
LOC: ER 10:50
DX: J44.1 Chronic obstructive pulmonary disease with (acute) exacerbation (principal); E87.70 Fluid overload, unspecified; N18.9 Chronic kidney disease, unspecified; Z88.0 Allergy status to penicillin; Z88.8 Allergy status to other drugs, medicaments and biological substances
CPT/HCPCS: 36415; 71045; 80053; 83880; 84145; 85025; 93005; 94640; 96374; 99285; J2930; 94760

== ENCOUNTER 2021-04-20 11:17 | Inpatient (IN) | payer MEDICARE, MEDICAID ==
[~2021-04-20] VITALS: Ht 175.3 cm; Wt 94.5 kg
[~2021-04-20 11:17] MED LIST changes: -VERA180T24 PO; +VERA180T59 PO
[2021-04-20] MEDS ORDERED: ipratropium/albuterol 3ml nebule NEB ONE (11:20)
--- NOTE | 2021-04-20 11:49 | NUR ---
RT AT BEDSIDE WITH BIPAP
[2021-04-20 11:58] LABS: BASOPHILS # (AUTO) 0.1 X10'3 (0-0.2); BASOPHILS % (AUTO) 0.8 % (0-1); EOSINOPHILS # (AUTO) 0.6 X10'3 (0-0.9); EOSINOPHILS % (AUTO) 4.8 % (0-6); HEMATOCRIT 36.7 % (42.0-52.0); HEMOGLOBIN 11.9 g/dl (14.0-17.9); LYMPHOCYTES # (AUTO) 1.1 X10'3 (1.1-4.8); LYMPHOCYTES % (AUTO) 9.1 % (21-51); MEAN CORPUSCULAR HEMOGLOBIN 29.6 PG (27.0-31.0); MEAN CORPUSCULAR HGB CONC 32.4 g/dL (33.0-36.5); MEAN CORPUSCULAR VOLUME 91.6 FL (78-98); MEAN PLATELET VOLUME 11.8 FL (7.4-10.4); MONOCYTES # (AUTO) 0.9 X10'3 (0-0.9); MONOCYTES % (AUTO) 7.2 % (2-12); NEUTROPHILS # (AUTO) 9.8 X10'3 (1.8-7.7); NEUTROPHILS % (AUTO) 78.1 % (42-75); PLATELET COUNT 123 X10'3 (140-440); RED BLOOD COUNT 4.01 X10'6 (4.70-6.10); RED CELL DISTRIBUTION WIDTH 17.6 % (11.5-14.5); WHITE BLOOD COUNT 12.5 X10'3 (4.5-11.0)
[2021-04-20 12:05] LABS: D-DIMER 2.17 MG/L FEU (0-0.50)
[2021-04-20 12:06] LABS: ALANINE AMINOTRANSFERASE 40 U/L (12-78); ALBUMIN 3.8 G/DL (3.4-5.0); ALBUMIN/GLOBULIN RATIO 1.3 (1.1-1.5); ALKALINE PHOSPHATASE 90 IU/L (46-116); ANION GAP 13 (8-16); ASPARTATE AMINO TRANSFERASE 15 U/L (10-37); BILIRUBIN,TOTAL 1.1 MG/DL (0.1-1.0); BLOOD UREA NITROGEN 42 MG/DL (7-18); BUN/CREATININE RATIO 5.8 (5.4-32.0); CALCIUM 8.1 MG/DL (8.5-10.1); CHLORIDE 106 MMOL/L (99-107); CREATININE 7.19 MG/DL (0.60-1.10); GLUCOSE 175 MG/DL (70-104); POTASSIUM 4.3 MMOL/L (3.5-5.1); SODIUM 143 MMOL/L (135-145); TOTAL CARBON DIOXIDE 24.3 MMOL/L (24-32); TOTAL PROTEIN 6.7 G/DL (6.4-8.2); eGFR 7 ML/MIN
[2021-04-20 12:06] LABS: ABG BASE EXCESS -6.9 mmol/L (-2.0-2.0); ABG HCO3 16.8 mmol/L (22.0-26.0); ABG OXYGEN SATURATION 98.7 % (94-97); ABG PCO2 (T) 27.8 mmHg (35.0-48.0); ABG PO2 (T) 149.5 mmHg (75.0-100.0); ALLEN'S TEST POSITIVE; FCOHb 0.5 % (0.0-3.9); FLOW 15 L/min; FMetHb 0.1 % (0.0-1.5); FO2Hb 98.1 % (94-97); PATIENT TEMPERATURE 36.5; TOTAL HEMOGLOBIN 11.4 G/dl (14.0-18.0)
[2021-04-20] MEDS ORDERED: CefTRIAXone 2gm/D5W 50ml BAG 50 ML IV ONE (12:35)
[2021-04-20] MEDS ORDERED: vancomycin/NS 1 GM ADD-VANTAGE 250 ML IV ONE (12:35)
[2021-04-20] MEDS ORDERED: dexamethasone sod phosphate 10mg/ml inj IV STA (12:37)
[2021-04-20] MEDS ORDERED: CLON0.1T2 PO (12:47)
[2021-04-20] MEDS ORDERED: METO-411 PO (12:47)
[2021-04-20] MEDS ORDERED: metoprolol succinate 25mg (24-HOUR) SR. Tablet PO ONE (13:30)
[2021-04-20] MEDS ORDERED: atorvastatin 20mg tablet PO ONE (13:30)
[2021-04-20] MEDS ORDERED: allopurinol 100mg tablet PO ONE (13:30)
[2021-04-20] MEDS ORDERED: furosemide 20MG tablet PO ONE ×2 (13:30)
[2021-04-20] MEDS ORDERED: tamsulosin 0.4mg capsule PO ONE (13:30)
[2021-04-20] MEDS ORDERED: cloNIDine 0.1 mg tablet PO ONE (13:30)
[2021-04-20] MEDS ORDERED: calcium acetate 667mg (PhosLO) capsule PO ONE (13:30)
[2021-04-20] MEDS: pantoprazole 40mg Tablet.DR PO ONE ×2 (13:30→14:25)
[2021-04-20] MEDS ORDERED: aspirin 81mg, enteric-coated 1 TAB TABLET.DR PO ONE (13:30)
[2021-04-20] MEDS ORDERED: verapamil SR 180mg tablet PO ONE (13:30)
[2021-04-20] MEDS ORDERED: HYDROcodone/acetaminophen 5mg/325mg tablet PO PRN (13:40)
[2021-04-20] MEDS ORDERED: morphine 2 MG/ML inj. syringe IV PRN (13:40)
[2021-04-20] MEDS ORDERED: mag hydrox/Alum hydrox/simeth 30ml oral suspension PO PRN (13:40)
[2021-04-20] MEDS ORDERED: ondansetron/PF 4mg/2ml inj IV PRN (13:40)
[2021-04-20] MEDS ORDERED: magnesium hydroxide 30ml (MOM) UD suspension PO PRN (13:40)
[2021-04-20] MEDS ORDERED: acetaminophen 325mg tablet PO PRN ×2 (13:40)
[2021-04-20] MEDS ORDERED: normal saline 1000ml 250 ML IV PRN (14:00)
--- NOTE | 2021-04-20 16:00 | NUR ---
Patient in room PCU 3016. I have received report from Sherice STARK and had the opportunity to ask questions and assume patient care.
[2021-04-20] MEDS ORDERED: heparin 1,000 units/ml 10ml inj HE ONE ×2 (16:55)
[2021-04-20 17:43] VITALS: BP 132/77
--- NOTE | 2021-04-20 18:04 | NUR ---
patient is on 5L via NC o2 sats 92% commenced on Dialysis as soon as reached the floor. VSS.
[2021-04-20] MEDS: calcium acetate 667mg (PhosLO) capsule PO SCH (18:27)
--- NOTE | 2021-04-20 18:33 | NUR ---
Problems reprioritized. Patient report given, questions answered & plan of care reviewed with antonio STARK. Addendum: 04/20/21 at 1907 by Zayda Cota RN Problems reprioritized. Patient report given, questions answered & plan of care reviewed with yadiel STARK.
--- NOTE | 2021-04-20 18:34 | NUR ---
Patient in room PCU 3016. I have received report from LINCOLN Priest and had the opportunity to ask questions and assume patient care.
--- NOTE | 2021-04-20 18:50 | NUR ---
Pt in bed on Dialysis at this time with nurse at bedside, B/P 114/64, P 69, R 18, no acute distress noted, will continue to monitor.
[2021-04-20 19:00] VITALS: BP 112/70
[2021-04-20] MEDS ORDERED: non-formulary drug (Vit C/E/Zn/Coppr/Lutein/Zeaxan (Preservision Areds 2 Softgel) 1 CAP) PO SCH (20:00)
[2021-04-20] MEDS ORDERED: labetalol 100mg tablet PO ONE (20:00)
[2021-04-20] MEDS: atorvastatin 10mg tablet PO SCH (20:43)
[2021-04-20] MEDS: labetalol 100mg tablet PO SCH (20:44)
[2021-04-20] MEDS: docusate sod 100mg capsule PO SCH (20:44)
[2021-04-20] MEDS: tamsulosin 0.4mg capsule PO SCH (20:44)
[2021-04-20] MEDS: verapamil SR 180mg tablet PO SCH (20:44)
[2021-04-20 23:33] VITALS: BP 128/55
[2021-04-21] VITALS (12 sets, daily range): BP systolic 114–163; BP diastolic 54–80
--- NOTE | 2021-04-21 06:41 | NUR ---
Problems reprioritized. Patient report given, questions answered & plan of care reviewed with LINCOLN Merritt.
[2021-04-21] MEDS ORDERED: aminophylline 250mg/10ml inj. IV PRN (06:50)
[2021-04-21] MEDS ORDERED: regadenoson 0.4mg/5ml syringe IV PRN (06:50)
[2021-04-21] MEDS ORDERED: nitroGLYCERIN 0.4mg SUBLingual tab SL PRN (06:50)
[2021-04-21] MEDS ORDERED: metoprolol tartrate 1mg/ml inj IV PRN (06:50)
--- NOTE | 2021-04-21 06:57 | NUR ---
Patient in room PCU 3016. I have received report from LINCOLN Tripp and had the opportunity to ask questions and assume patient care.
[2021-04-21 07:03] LABS: BASOPHILS % (AUTO) 0.2 % (0-1); EOSINOPHILS % (AUTO) 0 % (0-6); HEMATOCRIT 31.8 % (42.0-52.0); HEMOGLOBIN 10.4 g/dl (14.0-17.9); LYMPHOCYTES # (AUTO) 0.7 X10'3 (1.1-4.8); LYMPHOCYTES % (AUTO) 4.2 % (21-51); MEAN CORPUSCULAR HEMOGLOBIN 29.8 PG (27.0-31.0); MEAN CORPUSCULAR HGB CONC 32.6 g/dL (33.0-36.5); MEAN CORPUSCULAR VOLUME 91.3 FL (78-98); MONOCYTES # (AUTO) 1.1 X10'3 (0-0.9); MONOCYTES % (AUTO) 6.9 % (2-12); NEUTROPHILS # (AUTO) 14.6 X10'3 (1.8-7.7); NEUTROPHILS % (AUTO) 88.7 % (42-75); PLATELET COUNT 96 X10'3 (140-440); RED BLOOD COUNT 3.48 X10'6 (4.70-6.10); RED CELL DISTRIBUTION WIDTH 18.1 % (11.5-14.5); WHITE BLOOD COUNT 16.4 X10'3 (4.5-11.0)
[2021-04-21 07:29] LABS: ALBUMIN 3.3 G/DL (3.4-5.0); ANION GAP 12 (8-16); BLOOD UREA NITROGEN 33 MG/DL (7-18); BUN/CREATININE RATIO 6.1 (5.4-32.0); CALCIUM 8.1 MG/DL (8.5-10.1); CHLORIDE 103 MMOL/L (99-107); CHOL/HDL RATIO 2.4 (0.00-4.99); CHOLESTEROL 117 MG/DL (0-200); CREATININE 5.44 MG/DL (0.60-1.10); GLUCOSE 221 MG/DL (70-104); HDL CHOLESTEROL 48 MG/DL (35-60); LDL CHOLESTEROL 58 MG/DL (50-100); POTASSIUM 4.5 MMOL/L (3.5-5.1); SODIUM 140 MMOL/L (135-145); TOTAL CARBON DIOXIDE 24.7 MMOL/L (24-32); TRIGLYCERIDES 47 MG/DL (20-135); eGFR 10 ML/MIN
[2021-04-21] MEDS ORDERED: aspirin 81mg, enteric-coated 1 TAB TABLET.DR PO SCH (08:00)
[2021-04-21] MEDS: labetalol 100mg tablet PO SCH (08:00)
[2021-04-21] MEDS: allopurinol 100mg tablet PO SCH (08:00)
[2021-04-21] MEDS: calcium acetate 667mg (PhosLO) capsule PO SCH ×3 (08:00→17:24)
[2021-04-21] MEDS: verapamil SR 180mg tablet PO SCH (08:00)
[2021-04-21] MEDS: cloNIDine 0.1 mg tablet PO SCH (08:00)
[2021-04-21] MEDS: docusate sod 100mg capsule PO SCH ×2 (08:30→21:18)
[2021-04-21] MEDS: vitamin B comp w/Vit. C tab 1 TAB TABLET PO SCH (08:30)
[2021-04-21] MEDS: furosemide 40mg tablet PO SCH (08:30)
[2021-04-21] MEDS: aspirin 81mg, enteric-coated 1 TAB TABLET.DR PO SCH (08:31)
[2021-04-21] MEDS: pantoprazole 40mg Tablet.DR PO SCH (08:32)
[2021-04-21 08:35] LABS: ANISOCYTOSIS 2+; LARGE PLATELETS FEW; PLATELET ESTIMATE DECREASED
--- NOTE | 2021-04-21 18:16 | NUR ---
Problems reprioritized. Patient report given, questions answered & plan of care reviewed with Danita STARK.
[2021-04-21] MEDS: carVEDilol 12.5mg tablet PO SCH (21:18)
[2021-04-21] MEDS: atorvastatin 10mg tablet PO SCH (21:18)
[2021-04-21] MEDS: tamsulosin 0.4mg capsule PO SCH (21:19)
[2021-04-22] VITALS (14 sets, daily range): BP systolic 118–169; BP diastolic 60–97
[2021-04-22 06:48] LABS: ALBUMIN 3.2 G/DL (3.4-5.0); ANION GAP 14 (8-16); BLOOD UREA NITROGEN 45 MG/DL (7-18); BUN/CREATININE RATIO 6.7 (5.4-32.0); CALCIUM 8.1 MG/DL (8.5-10.1); CHLORIDE 107 MMOL/L (99-107); CHOLESTEROL 98 MG/DL (0-200); CREATININE 6.69 MG/DL (0.60-1.10); GLUCOSE 103 MG/DL (70-104); HDL CHOLESTEROL 49 MG/DL (35-60); LDL CHOLESTEROL 41 MG/DL (50-100); POTASSIUM 3.9 MMOL/L (3.5-5.1); SODIUM 144 MMOL/L (135-145); TOTAL CARBON DIOXIDE 22.9 MMOL/L (24-32); TRIGLYCERIDES 53 MG/DL (20-135); eGFR 8 ML/MIN
[2021-04-22 07:01] LABS: BASOPHILS % (AUTO) 0.2 % (0-1); EOSINOPHILS # (AUTO) 0.1 X10'3 (0-0.9); EOSINOPHILS % (AUTO) 0.9 % (0-6); HEMATOCRIT 31.2 % (42.0-52.0); HEMOGLOBIN 9.9 g/dl (14.0-17.9); LYMPHOCYTES # (AUTO) 1.2 X10'3 (1.1-4.8); LYMPHOCYTES % (AUTO) 8.6 % (21-51); MEAN CORPUSCULAR HGB CONC 31.8 g/dL (33.0-36.5); MEAN CORPUSCULAR VOLUME 91.1 FL (78-98); MEAN PLATELET VOLUME 11.7 FL (7.4-10.4); MONOCYTES # (AUTO) 0.9 X10'3 (0-0.9); MONOCYTES % (AUTO) 6.9 % (2-12); NEUTROPHILS # (AUTO) 11.3 X10'3 (1.8-7.7); NEUTROPHILS % (AUTO) 83.4 % (42-75); PLATELET COUNT 86 X10'3 (140-440); RED BLOOD COUNT 3.42 X10'6 (4.70-6.10); WHITE BLOOD COUNT 13.5 X10'3 (4.5-11.0)
[2021-04-22] MEDS: docusate sod 100mg capsule PO SCH ×2 (08:00→19:48)
[2021-04-22] MEDS: calcium acetate 667mg (PhosLO) capsule PO SCH ×3 (08:00→22:15)
[2021-04-22] MEDS: cloNIDine 0.1 mg tablet PO SCH (08:00)
[2021-04-22] MEDS: carVEDilol 12.5mg tablet PO SCH ×2 (08:42→19:47)
[2021-04-22] MEDS: vitamin B comp w/Vit. C tab 1 TAB TABLET PO SCH (08:42)
[2021-04-22] MEDS: aspirin 81mg, enteric-coated 1 TAB TABLET.DR PO SCH (08:42)
[2021-04-22] MEDS: pantoprazole 40mg Tablet.DR PO SCH (08:42)
[2021-04-22] MEDS: furosemide 40mg tablet PO SCH (08:43)
[2021-04-22] MEDS: allopurinol 100mg tablet PO SCH (08:43)
[2021-04-22] MEDS ORDERED: heparin 1,000unit/ml 10ml vial 10 ML IV ONE (09:15)
[2021-04-22] MEDS ORDERED: normal saline 1000ml 250 ML IV PRN (09:15)
[2021-04-22] MEDS ORDERED: EPOETIN ALFA-EPBX 20,000 UNIT/ML 1 ML MDV IV ONE (09:15)
[2021-04-22] MEDS ORDERED: heparin 1,000 units/ml 10ml inj HE ONE ×2 (09:20)
[2021-04-22] MEDS ORDERED: iohexol 350 MG/ML 50ML vial IV ONE ×2 (12:44→14:01)
[2021-04-22] MEDS ORDERED: iohexol 350MG/ML 100ml bottle IV ONE ×2 (12:44→14:11)
[2021-04-22] MEDS ORDERED: midazolam 1 mg/ML 2ml injection ONE (12:44)
[2021-04-22] MEDS ORDERED: heparin 1,000 UNITS/NS 500ml 500 ML ONE (12:44)
[2021-04-22] MEDS ORDERED: fentaNYL/PF 50MCG/1 ML 2ML syringe ONE (12:44)
[2021-04-22] MEDS ORDERED: LIDOcaine 1% (10mg/ml)w/preservative injection 20ml MDV ONE (12:44)
--- NOTE | 2021-04-22 13:15 | NUR ---
HD performed at bedside. 1.5 L off - ended 45 min early with MD approval for heart cath procedure. Called daughter Enedina [phone]. Advised of HD performed and pt off to procedure. Answered all questions, comment, and concerns.
[2021-04-22] MEDS ORDERED: nitroGLYCERIN-Tridil 50MG/D5W 250 ML IV ONE (14:03)
[2021-04-22] MEDS ORDERED: hydrALAZINE 20mg/ml inj. IV ONE (14:03)
--- NOTE | 2021-04-22 15:16 | NUR ---
Pt returned from heart cath - Pt is stable and has fem stop to right groin in place. Dressing CDI. Pedal pulses palpable bilaterally. Pt will lay flat for 8 hours post procedure per MD orders. Faxed orders to pharmacy.
[2021-04-22] MEDS ORDERED: ondansetron/PF 4mg/2ml inj IV PRN (15:35)
[2021-04-22] MEDS ORDERED: HYDROcodone/acetaminophen 5mg/325mg tablet PO PRN (15:35)
[2021-04-22] MEDS ORDERED: nitroGLYCERIN 0.4mg SUBLingual tab SL PRN (15:35)
[2021-04-22] MEDS ORDERED: proCHLORperazine 10 MG/2 ml inj IV PRN (15:35)
[2021-04-22] MEDS ORDERED: OXAZEpam 15mg capsule PO PRN (15:35)
[2021-04-22 15:44] LABS: ISTAT HGB ART 11.2 g/dl (14.0-18.0); ISTAT Hct ART 33 %PCV (42-52); ISTAT O2 SATURATION ARTERIAL 92 % (95-98); ISTAT SOURCE ART
--- NOTE | 2021-04-22 18:44 | NUR ---
Patient in room PCU 3016. I have received report from Radha STARK and had the opportunity to ask questions and assume patient care.
--- NOTE | 2021-04-22 19:03 | NUR ---
Problems reprioritized. Patient report given, questions answered & plan of care reviewed with LINCOLN Blevins.
[2021-04-22] MEDS: morphine 2 MG/ML inj. syringe IV PRN (19:46)
[2021-04-22] MEDS: atorvastatin 10mg tablet PO SCH (19:48)
[2021-04-22] MEDS: tamsulosin 0.4mg capsule PO SCH (19:48)
[2021-04-23 02:00] VITALS: BP 122/77
[2021-04-23] MEDS: normal saline 1000ml 1,000 ML IV SCH ×2 (02:24→11:52)
[2021-04-23 06:00] VITALS: BP 149/68
--- NOTE | 2021-04-23 06:30 | NUR ---
Changed right groin dressing with NOC shift nurse. Dressing soaked. Will continue to monitor.
[2021-04-23 06:59] LABS: BASOPHILS # (AUTO) 0.1 X10'3 (0-0.2); EOSINOPHILS # (AUTO) 0.3 X10'3 (0-0.9); MONOCYTES # (AUTO) 1.2 X10'3 (0-0.9)
[2021-04-23 07:01] LABS: BASOPHILS % (AUTO) 0.6 % (0-1); EOSINOPHILS % (AUTO) 2.7 % (0-6); HEMATOCRIT 32.4 % (42.0-52.0); HEMOGLOBIN 10.7 g/dl (14.0-17.9); LYMPHOCYTES # (AUTO) 1.1 X10'3 (1.1-4.8); LYMPHOCYTES % (AUTO) 11.1 % (21-51); MEAN CORPUSCULAR HEMOGLOBIN 30.2 PG (27.0-31.0); MEAN CORPUSCULAR HGB CONC 32.9 g/dL (33.0-36.5); MEAN CORPUSCULAR VOLUME 91.6 FL (78-98); MEAN PLATELET VOLUME 11.2 FL (7.4-10.4); MONOCYTES % (AUTO) 11.4 % (2-12); NEUTROPHILS # (AUTO) 7.6 X10'3 (1.8-7.7); NEUTROPHILS % (AUTO) 74.2 % (42-75); PLATELET COUNT 86 X10'3 (140-440); RED BLOOD COUNT 3.53 X10'6 (4.70-6.10); RED CELL DISTRIBUTION WIDTH 17.7 % (11.5-14.5); WHITE BLOOD COUNT 10.3 X10'3 (4.5-11.0)
[2021-04-23 07:32] LABS: ANION GAP 11 (8-16); BLOOD UREA NITROGEN 33 MG/DL (7-18); BUN/CREATININE RATIO 5.5 (5.4-32.0); CALCIUM 7.5 MG/DL (8.5-10.1); CHLORIDE 102 MMOL/L (99-107); CREATININE 5.96 MG/DL (0.60-1.10); GLUCOSE 93 MG/DL (70-104); POTASSIUM 4.1 MMOL/L (3.5-5.1); SODIUM 139 MMOL/L (135-145); TOTAL CARBON DIOXIDE 25.8 MMOL/L (24-32); eGFR 9 ML/MIN
[2021-04-23] MEDS: docusate sod 100mg capsule PO SCH ×2 (08:00→19:32)
[2021-04-23] MEDS: cloNIDine 0.1 mg tablet PO SCH (08:00)
[2021-04-23] MEDS: pantoprazole 40mg Tablet.DR PO SCH (09:01)
[2021-04-23] MEDS: furosemide 40mg tablet PO SCH (09:01)
[2021-04-23] MEDS: vitamin B comp w/Vit. C tab 1 TAB TABLET PO SCH (09:02)
[2021-04-23] MEDS: carVEDilol 12.5mg tablet PO SCH ×2 (09:02→19:32)
[2021-04-23] MEDS: allopurinol 100mg tablet PO SCH (09:02)
[2021-04-23] MEDS: aspirin 81mg, enteric-coated 1 TAB TABLET.DR PO SCH (09:02)
[2021-04-23] MEDS: calcium acetate 667mg (PhosLO) capsule PO SCH ×3 (09:03→17:53)
--- NOTE | 2021-04-23 10:30 | NUR ---
Attempted PIV 18g placement x2. Paged PICC nurse to assist.
[2021-04-23] MEDS ORDERED: iohexol 350MG/ML 100ml bottle IV ONE (10:44)
[2021-04-23 11:00] VITALS: BP 142/81
--- NOTE | 2021-04-23 11:00 | NUR ---
Changed right groin dressing and applied 5lb weight for some pressure. Dressing was 3/4 soaked. MD Guzman aware.
[2021-04-23 11:59] LABS: ANISOCYTOSIS 1+; LARGE PLATELETS FEW; PLATELET ESTIMATE DECREASED
--- NOTE | 2021-04-23 13:01 | NUR ---
PICC nurse was able to get 18g PIV in left hand
[2021-04-23 15:00] VITALS: BP 158/83
[2021-04-23] MEDS ORDERED: nitroGLYCERIN 0.4mg SUBLingual tab SL ONE (15:21)
[2021-04-23 18:00] VITALS: BP 141/82
--- NOTE | 2021-04-23 18:41 | NUR ---
Problems reprioritized. Patient report given, questions answered & plan of care reviewed with LINCOLN Hightower.
[2021-04-23] MEDS: tamsulosin 0.4mg capsule PO SCH (20:30)
[2021-04-23] MEDS: atorvastatin 10mg tablet PO SCH (20:30)
[2021-04-23 22:00] VITALS: BP 163/72
[2021-04-23] MEDS: morphine 2 MG/ML inj. syringe IV PRN (23:49)
[2021-04-24] MEDS: HYDROcodone/acetaminophen 10/325mg tab PO PRN ×2 (03:07→09:58)
[2021-04-24] MEDS: morphine 2 MG/ML inj. syringe IV PRN (05:17)
[2021-04-24 06:00] VITALS: BP 160/67
--- NOTE | 2021-04-24 06:41 | NUR ---
Problems reprioritized. Patient report given, questions answered & plan of care reviewed with LINCOLN Gillespie.
[2021-04-24 07:09] LABS: BASOPHILS # (AUTO) 0.1 X10'3 (0-0.2); BASOPHILS % (AUTO) 0.5 % (0-1); EOSINOPHILS # (AUTO) 0.5 X10'3 (0-0.9); EOSINOPHILS % (AUTO) 3.4 % (0-6); HEMATOCRIT 26.9 % (42.0-52.0); HEMOGLOBIN 8.7 g/dl (14.0-17.9); LYMPHOCYTES # (AUTO) 0.9 X10'3 (1.1-4.8); LYMPHOCYTES % (AUTO) 6.1 % (21-51); MEAN CORPUSCULAR HEMOGLOBIN 29.6 PG (27.0-31.0); MEAN CORPUSCULAR HGB CONC 32.4 g/dL (33.0-36.5); MEAN CORPUSCULAR VOLUME 91.3 FL (78-98); MEAN PLATELET VOLUME 11.8 FL (7.4-10.4); MONOCYTES # (AUTO) 1.1 X10'3 (0-0.9); MONOCYTES % (AUTO) 7.6 % (2-12); NEUTROPHILS # (AUTO) 11.8 X10'3 (1.8-7.7); NEUTROPHILS % (AUTO) 82.4 % (42-75); PLATELET COUNT 87 X10'3 (140-440); RED BLOOD COUNT 2.94 X10'6 (4.70-6.10); RED CELL DISTRIBUTION WIDTH 17.6 % (11.5-14.5); WHITE BLOOD COUNT 14.3 X10'3 (4.5-11.0)
[2021-04-24 07:24] LABS: ALBUMIN 2.9 G/DL (3.4-5.0); ANION GAP 13 (8-16); BLOOD UREA NITROGEN 41 MG/DL (7-18); BUN/CREATININE RATIO 5.3 (5.4-32.0); CALCIUM 7.4 MG/DL (8.5-10.1); CHLORIDE 103 MMOL/L (99-107); CREATININE 7.67 MG/DL (0.60-1.10); GLUCOSE 174 MG/DL (70-104); POTASSIUM 4.9 MMOL/L (3.5-5.1); SODIUM 138 MMOL/L (135-145); TOTAL CARBON DIOXIDE 21.6 MMOL/L (24-32); eGFR 7 ML/MIN
[2021-04-24] MEDS ORDERED: EPOETIN ALFA-EPBX 20,000 UNIT/ML 1 ML MDV IV ONE (08:00)
[2021-04-24] MEDS ORDERED: normal saline 1000ml 100 ML IV PRN (08:00)
[2021-04-24] MEDS ORDERED: albumin (human) 25% 100ml IV 100 ML IV PRN (08:00)
[2021-04-24] MEDS ORDERED: heparin 1,000 units/ml 10ml inj HE ONE ×2 (08:00)
[2021-04-24] MEDS: carVEDilol 12.5mg tablet PO SCH ×2 (08:00→20:47)
[2021-04-24] MEDS: cloNIDine 0.1 mg tablet PO SCH (08:00)
[2021-04-24] MEDS: pantoprazole 40mg Tablet.DR PO SCH (08:05)
[2021-04-24] MEDS: vitamin B comp w/Vit. C tab 1 TAB TABLET PO SCH (08:05)
[2021-04-24] MEDS: aspirin 81mg, enteric-coated 1 TAB TABLET.DR PO SCH (08:05)
[2021-04-24] MEDS: allopurinol 100mg tablet PO SCH (08:05)
[2021-04-24] MEDS: calcium acetate 667mg (PhosLO) capsule PO SCH ×3 (08:06→18:00)
[2021-04-24] MEDS: furosemide 40mg tablet PO SCH (08:06)
[2021-04-24] MEDS: docusate sod 100mg capsule PO SCH ×2 (08:06→20:47)
[2021-04-24 11:00] VITALS: BP 129/82
--- NOTE | 2021-04-24 14:13 | NUR ---
Initial: Pt with ESRD on HD presented with flash pulmonary edema and acute non-STEMI possibly r/t fluid overload per MD note, family reunification specialist following. Pt on a renal diet and eating well with mostly 100% PO intake throughout LOS. LBM 04/23, receiving routine bowel care. Noted hx T2DM, current A1c is 5.0%. No nutrition diagnosis at this time. Will continue to follow. Recommendations: 1) Continue renal diet 2) Monitor need for additional protein for satiety 3) Routine bowel care 4) Scaled weight this admit; scaled weights with dialysis thereafter Addendum: 04/24/21 at [address] Amended: Links added.
[2021-04-24 15:00] VITALS: BP 109/53
--- NOTE | 2021-04-24 17:46 | NUR ---
PAGER ID: [phone] Magu MESSAGE: RE: Sugar [address]. Melissa SKAGGS +[email or web address].
[2021-04-24 19:00] VITALS: BP 117/67
--- NOTE | 2021-04-24 19:57 | NUR ---
Page sent to hospitalist with Ultrasound result of the right groin.
[2021-04-24] MEDS: tamsulosin 0.4mg capsule PO SCH (20:47)
[2021-04-24] MEDS: atorvastatin 10mg tablet PO SCH (20:47)
[2021-04-24 23:26] VITALS: BP 145/68
--- NOTE | 2021-04-24 23:31 | NUR ---
Hospitalist called regarding Ultrasound result/ aware of the result and requested to continue monitor patient and to re-page if new finding occurs.
[2021-04-25] VITALS (8 sets, daily range): BP systolic 128–152; BP diastolic 54–70
[2021-04-25] MEDS: HYDROcodone/acetaminophen 10/325mg tab PO PRN ×2 (01:21→05:19)
[2021-04-25 06:46] LABS: BASOPHILS # (AUTO) 0.1 X10'3 (0-0.2); BASOPHILS % (AUTO) 0.6 % (0-1); EOSINOPHILS # (AUTO) 0.4 X10'3 (0-0.9); EOSINOPHILS % (AUTO) 2.6 % (0-6); HEMOGLOBIN 7.2 g/dl (14.0-17.9); LYMPHOCYTES # (AUTO) 0.9 X10'3 (1.1-4.8); LYMPHOCYTES % (AUTO) 6.1 % (21-51); MEAN CORPUSCULAR HEMOGLOBIN 29.4 PG (27.0-31.0); MEAN CORPUSCULAR HGB CONC 32.8 g/dL (33.0-36.5); MEAN CORPUSCULAR VOLUME 89.7 FL (78-98); MEAN PLATELET VOLUME 11.7 FL (7.4-10.4); MONOCYTES # (AUTO) 1.6 X10'3 (0-0.9); MONOCYTES % (AUTO) 10.6 % (2-12); NEUTROPHILS # (AUTO) 11.8 X10'3 (1.8-7.7); NEUTROPHILS % (AUTO) 80.1 % (42-75); PLATELET COUNT 86 X10'3 (140-440); RED BLOOD COUNT 2.43 X10'6 (4.70-6.10); RED CELL DISTRIBUTION WIDTH 17.7 % (11.5-14.5); WHITE BLOOD COUNT 14.7 X10'3 (4.5-11.0)
[2021-04-25 06:52] LABS: HEMATOCRIT 21.8 % (42.0-52.0)
--- NOTE | 2021-04-25 07:00 | NUR ---
DR. WALKER PAGENatali: Noah Rowland [phone]: H/H 7.2/21.8 down from 8.7/26.9 on 04/24. [id number]
[2021-04-25 07:56] LABS: ALBUMIN 2.9 G/DL (3.4-5.0); ANION GAP 13 (8-16); BLOOD UREA NITROGEN 25 MG/DL (7-18); BUN/CREATININE RATIO 4.2 (5.4-32.0); CALCIUM 7.9 MG/DL (8.5-10.1); CHLORIDE 103 MMOL/L (99-107); CREATININE 5.98 MG/DL (0.60-1.10); GLUCOSE 138 MG/DL (70-104); POTASSIUM 4.2 MMOL/L (3.5-5.1); SODIUM 140 MMOL/L (135-145); eGFR 9 ML/MIN
[2021-04-25] MEDS: furosemide 40mg tablet PO SCH (08:30)
[2021-04-25] MEDS: pantoprazole 40mg Tablet.DR PO SCH (08:30)
[2021-04-25] MEDS: carVEDilol 12.5mg tablet PO SCH ×2 (08:30→20:12)
[2021-04-25] MEDS: vitamin B comp w/Vit. C tab 1 TAB TABLET PO SCH (08:31)
[2021-04-25] MEDS: calcium acetate 667mg (PhosLO) capsule PO SCH ×3 (08:31→18:05)
[2021-04-25] MEDS: docusate sod 100mg capsule PO SCH ×2 (08:31→20:12)
[2021-04-25] MEDS: cloNIDine 0.1 mg tablet PO SCH (08:31)
[2021-04-25] MEDS: aspirin 81mg, enteric-coated 1 TAB TABLET.DR PO SCH (08:31)
[2021-04-25] MEDS: allopurinol 100mg tablet PO SCH (08:31)
[2021-04-25 10:43] LABS: BASOPHILS # (AUTO) 0.1 X10'3 (0-0.2); BASOPHILS % (AUTO) 0.5 % (0-1); EOSINOPHILS # (AUTO) 0.5 X10'3 (0-0.9); HEMATOCRIT 23.1 % (42.0-52.0); HEMOGLOBIN 7.7 g/dl (14.0-17.9); LYMPHOCYTES # (AUTO) 0.9 X10'3 (1.1-4.8); LYMPHOCYTES % (AUTO) 5.8 % (21-51); MEAN CORPUSCULAR HEMOGLOBIN 29.7 PG (27.0-31.0); MEAN CORPUSCULAR HGB CONC 33.2 g/dL (33.0-36.5); MEAN CORPUSCULAR VOLUME 89.2 FL (78-98); MEAN PLATELET VOLUME 11.5 FL (7.4-10.4); MONOCYTES # (AUTO) 1.8 X10'3 (0-0.9); MONOCYTES % (AUTO) 11.2 % (2-12); NEUTROPHILS # (AUTO) 12.7 X10'3 (1.8-7.7); NEUTROPHILS % (AUTO) 79.5 % (42-75); PLATELET COUNT 93 X10'3 (140-440); RED BLOOD COUNT 2.59 X10'6 (4.70-6.10); RED CELL DISTRIBUTION WIDTH 17.5 % (11.5-14.5)
[2021-04-25 10:55] LABS: PARTIAL THROMBOPLASTIN TIME 27 SECONDS (22-32)
[2021-04-25 11:16] LABS: CLARITY,URINE CLEAR (Clear); COLOR,URINE YELLOW (Yellow); GLUCOSE, URINE NEGATIVE (Neg); KETONES,URINE NEGATIVE (Neg); LEUKOCYTE ESTERASE ,URINE NEGATIVE (Neg); NITRITES, URINE NEGATIVE (Neg); OCCULT BLOOD,URINE NEGATIVE (Neg); PROTEIN,URINE 30 mg/dl (Neg); UA COLLECTION TYPE CLN CATCH MIDSTREAM; UROBILINOGEN,URINE 0.2 E.U/dL (0.2-1.0)
[2021-04-25 11:19] LABS: RBC,URINE 0-2 /HPF (0-2)
[2021-04-25 11:20] LABS: BACTERIA,URINE FEW /HPF (Neg); COARSE GRANULAR CAST 0-3 /LPF (NEGATIVE); HYALINE CASTS 0-3 /LPF (NEGATIVE); MUCUS STRANDS FEW /LPF (Neg); RENAL CELLS, URINE FEW /HPF; SQUAMOUS EPITHELIAL CELL,UR MODERATE /LPF (FEW)
[2021-04-25] MEDS: diatr meglu/diatrizoate 30ml oral sol.-(3 dose) bottle PO SCH ×3 (11:28→17:05)
[2021-04-25 16:48] LABS: OCCULT BLOOD STOOL NEGATIVE (Neg)
[2021-04-25] MEDS ORDERED: cephalexin 500mg capsule PO SCH (16:57)
[2021-04-25] MEDS: tamsulosin 0.4mg capsule PO SCH (20:13)
[2021-04-25] MEDS: atorvastatin 10mg tablet PO SCH (20:13)
[2021-04-25 20:56] LABS: BASOPHILS # (AUTO) 0.1 X10'3 (0-0.2); BASOPHILS % (AUTO) 0.5 % (0-1); EOSINOPHILS # (AUTO) 0.3 X10'3 (0-0.9); EOSINOPHILS % (AUTO) 1.6 % (0-6); HEMATOCRIT 24.8 % (42.0-52.0); HEMOGLOBIN 8.1 g/dl (14.0-17.9); LYMPHOCYTES # (AUTO) 1.1 X10'3 (1.1-4.8); LYMPHOCYTES % (AUTO) 6.5 % (21-51); MEAN CORPUSCULAR HEMOGLOBIN 29.7 PG (27.0-31.0); MEAN CORPUSCULAR HGB CONC 32.7 g/dL (33.0-36.5); MEAN CORPUSCULAR VOLUME 90.7 FL (78-98); MEAN PLATELET VOLUME 11.7 FL (7.4-10.4); MONOCYTES % (AUTO) 12.3 % (2-12); NEUTROPHILS % (AUTO) 79.1 % (42-75); PLATELET COUNT 90 X10'3 (140-440); RED BLOOD COUNT 2.73 X10'6 (4.70-6.10); RED CELL DISTRIBUTION WIDTH 16.4 % (11.5-14.5); WHITE BLOOD COUNT 16.4 X10'3 (4.5-11.0)
[2021-04-25] MEDS ORDERED: desmopressin inj. 24 MCG in normal saline 100ml IV soln 94 ML IV ONE (21:35)
[2021-04-26] VITALS (8 sets, daily range): BP systolic 139–161; BP diastolic 54–75
--- NOTE | 2021-04-26 06:13 | NUR ---
[place] Medication Administration: For this medication-pass time frame, all medication were reviewed, dispensed, administered and documented per hospital policy by LINCOLN Laboy. [place] Documentation: I have reviewed and agree with all interventions, assessments performed and documented by LINCOLN Laboy.
--- NOTE | 2021-04-26 07:02 | NUR ---
Problems reprioritized. Patient report given, questions answered & plan of care reviewed with LINCOLN Nielson.
[2021-04-26 07:09] LABS: HEMOGLOBIN 7.2 g/dl (14.0-17.9); MEAN CORPUSCULAR VOLUME 90.8 FL (78-98); PLATELET COUNT 95 X10'3 (140-440); RED CELL DISTRIBUTION WIDTH 16.7 % (11.5-14.5); WHITE BLOOD COUNT 16.7 X10'3 (4.5-11.0)
[2021-04-26 07:35] LABS: HEMATOCRIT 21.8 % (42.0-52.0)
--- NOTE | 2021-04-26 07:49 | NUR ---
DR. PENA PAGED: Elen Starkweather, Noah [phone]: H/H 7.2/.8. DOWN FROM 8.08/16.8 ON 04/25. DR. GARG HAS ORDERS IN FOR PRBC.
[2021-04-26] MEDS: carVEDilol 12.5mg tablet PO SCH ×2 (08:00→21:38)
[2021-04-26] MEDS: cloNIDine 0.1 mg tablet PO SCH (08:00)
[2021-04-26] MEDS: calcium acetate 667mg (PhosLO) capsule PO SCH ×3 (09:10→18:19)
[2021-04-26] MEDS: CefTRIAXone 2gm/D5W 50ml BAG 50 ML IV SCH (09:10)
[2021-04-26] MEDS: furosemide 40mg tablet PO SCH (09:11)
[2021-04-26] MEDS: docusate sod 100mg capsule PO SCH ×2 (09:11→21:36)
[2021-04-26] MEDS: vitamin B comp w/Vit. C tab 1 TAB TABLET PO SCH (09:12)
[2021-04-26] MEDS: allopurinol 100mg tablet PO SCH (09:12)
[2021-04-26] MEDS: pantoprazole 40mg Tablet.DR PO SCH (09:12)
[2021-04-26 10:08] LABS: BASOPHILS # (AUTO) 0.1 X10'3 (0-0.2); BASOPHILS % (AUTO) 0.5 % (0-1); EOSINOPHILS # (AUTO) 0.2 X10'3 (0-0.9); EOSINOPHILS % (AUTO) 1.4 % (0-6); HEMOGLOBIN 7.1 g/dl (14.0-17.9); LYMPHOCYTES # (AUTO) 0.9 X10'3 (1.1-4.8); LYMPHOCYTES % (AUTO) 5.6 % (21-51); MEAN CORPUSCULAR HEMOGLOBIN 29.6 PG (27.0-31.0); MEAN CORPUSCULAR HGB CONC 33.2 g/dL (33.0-36.5); MEAN CORPUSCULAR VOLUME 89.2 FL (78-98); MEAN PLATELET VOLUME 11.5 FL (7.4-10.4); MONOCYTES # (AUTO) 1.8 X10'3 (0-0.9); MONOCYTES % (AUTO) 11.5 % (2-12); NEUTROPHILS # (AUTO) 12.5 X10'3 (1.8-7.7); PLATELET COUNT 101 X10'3 (140-440); RED BLOOD COUNT 2.41 X10'6 (4.70-6.10); RED CELL DISTRIBUTION WIDTH 16.8 % (11.5-14.5); WHITE BLOOD COUNT 15.4 X10'3 (4.5-11.0)
[2021-04-26 10:12] LABS: HEMATOCRIT 21.5 % (42.0-52.0)
[2021-04-26 11:59] LABS: ISTAT Hct MIX 33 %PCV (42-52); ISTAT O2 SATURATION MIX VENOUS 49 % (60-80); ISTAT SOURCE BLNK
[2021-04-26] MEDS ORDERED: normal saline 500ml IV soln 500 ML IV SCH (14:20)
[2021-04-26] MEDS ORDERED: nitroGLYCERIN 0.4mg SUBLingual tab SL PRN (14:20)
[2021-04-26] MEDS ORDERED: DOBUTamine-DoBUTrex 500mg/D5W 250 ML IV SCH (14:20)
[2021-04-26] MEDS ORDERED: metoprolol tartrate 1mg/ml inj IV PRN (14:20)
[2021-04-26] MEDS ORDERED: atropine 0.1mg/ml 10ml syringe IV PRN (14:20)
[2021-04-26] MEDS: HYDROcodone/acetaminophen 10/325mg tab PO PRN ×2 (14:55→21:37)
[2021-04-26 16:52] LABS: HEMATOCRIT 23.6 % (42.0-52.0); HEMOGLOBIN 7.8 g/dl (14.0-17.9); MEAN CORPUSCULAR HEMOGLOBIN 29.4 PG (27.0-31.0); MEAN CORPUSCULAR HGB CONC 33.1 g/dL (33.0-36.5); MEAN CORPUSCULAR VOLUME 88.6 FL (78-98); MEAN PLATELET VOLUME 11.1 FL (7.4-10.4); PLATELET COUNT 92 X10'3 (140-440); RED BLOOD COUNT 2.66 X10'6 (4.70-6.10); RED CELL DISTRIBUTION WIDTH 16.8 % (11.5-14.5); WHITE BLOOD COUNT 13.9 X10'3 (4.5-11.0)
[2021-04-26] MEDS: ipratropium 0.5 MG/2.5ML nebule IH PRN (17:03)
--- NOTE | 2021-04-26 18:25 | NUR ---
Problems reprioritized. Patient report given, questions answered & plan of care reviewed with EKTA STARK.
[2021-04-26 20:20] LABS: HEMATOCRIT 22.7 % (42.0-52.0); HEMOGLOBIN 7.6 g/dl (14.0-17.9); MEAN CORPUSCULAR HEMOGLOBIN 29.6 PG (27.0-31.0); MEAN CORPUSCULAR HGB CONC 33.3 g/dL (33.0-36.5); MEAN CORPUSCULAR VOLUME 88.9 FL (78-98); MEAN PLATELET VOLUME 11.1 FL (7.4-10.4); PLATELET COUNT 90 X10'3 (140-440); RED BLOOD COUNT 2.56 X10'6 (4.70-6.10); RED CELL DISTRIBUTION WIDTH 16.3 % (11.5-14.5); WHITE BLOOD COUNT 14.2 X10'3 (4.5-11.0)
[2021-04-26] MEDS: tamsulosin 0.4mg capsule PO SCH (21:37)
[2021-04-26] MEDS: lactobacillus rhamnosus 10,000 MMU CELLS/CAPSULE PO SCH (21:38)
[2021-04-26] MEDS: atorvastatin 10mg tablet PO SCH (21:38)
[2021-04-26 23:18] LABS: BASOPHILS # (AUTO) 0.1 X10'3 (0-0.2); BASOPHILS % (AUTO) 0.5 % (0-1); EOSINOPHILS # (AUTO) 0.4 X10'3 (0-0.9); EOSINOPHILS % (AUTO) 2.7 % (0-6); HEMATOCRIT 22.8 % (42.0-52.0); HEMOGLOBIN 7.5 g/dl (14.0-17.9); LYMPHOCYTES # (AUTO) 0.8 X10'3 (1.1-4.8); LYMPHOCYTES % (AUTO) 5.6 % (21-51); MEAN CORPUSCULAR HEMOGLOBIN 29.3 PG (27.0-31.0); MEAN CORPUSCULAR HGB CONC 33.1 g/dL (33.0-36.5); MEAN CORPUSCULAR VOLUME 88.5 FL (78-98); MEAN PLATELET VOLUME 11.9 FL (7.4-10.4); MONOCYTES # (AUTO) 1.8 X10'3 (0-0.9); MONOCYTES % (AUTO) 12.3 % (2-12); NEUTROPHILS # (AUTO) 11.3 X10'3 (1.8-7.7); NEUTROPHILS % (AUTO) 78.9 % (42-75); PLATELET COUNT 104 X10'3 (140-440); RED BLOOD COUNT 2.58 X10'6 (4.70-6.10); RED CELL DISTRIBUTION WIDTH 16.3 % (11.5-14.5); WHITE BLOOD COUNT 14.3 X10'3 (4.5-11.0)
[2021-04-27] VITALS (8 sets, daily range): BP systolic 135–156; BP diastolic 63–78
--- NOTE | 2021-04-27 06:30 | NUR ---
Patient in room PCU 3016. I have received report from Cait STARK and had the opportunity to ask questions and assume patient care.
--- NOTE | 2021-04-27 06:34 | NUR ---
Problems reprioritized. Patient report given, questions answered & plan of care reviewed with LINCOLN Restrepo.
[2021-04-27 07:13] LABS: HEMATOCRIT 22.3 % (42.0-52.0); HEMOGLOBIN 7.3 g/dl (14.0-17.9); MEAN CORPUSCULAR HEMOGLOBIN 29.5 PG (27.0-31.0); MEAN CORPUSCULAR HGB CONC 32.9 g/dL (33.0-36.5); MEAN CORPUSCULAR VOLUME 89.5 FL (78-98); PLATELET COUNT 108 X10'3 (140-440); RED BLOOD COUNT 2.49 X10'6 (4.70-6.10); RED CELL DISTRIBUTION WIDTH 16.3 % (11.5-14.5); WHITE BLOOD COUNT 14.3 X10'3 (4.5-11.0)
[2021-04-27 07:20] LABS: ALANINE AMINOTRANSFERASE 25 U/L (12-78); ALBUMIN 2.8 G/DL (3.4-5.0); ALBUMIN/GLOBULIN RATIO 1.1 (1.1-1.5); ALKALINE PHOSPHATASE 74 IU/L (46-116); ANION GAP 15 (8-16); ASPARTATE AMINO TRANSFERASE 20 U/L (10-37); BILIRUBIN,TOTAL 0.6 MG/DL (0.1-1.0); BLOOD UREA NITROGEN 53 MG/DL (7-18); BUN/CREATININE RATIO 5.8 (5.4-32.0); CHLORIDE 100 MMOL/L (99-107); CREATININE 9.15 MG/DL (0.60-1.10); GLUCOSE 106 MG/DL (70-104); MAGNESIUM 2.2 MG/DL (1.5-2.4); PHOSPHORUS 5.8 MG/DL (2.3-4.5); POTASSIUM 4.2 MMOL/L (3.5-5.1); SODIUM 136 MMOL/L (135-145); TOTAL CARBON DIOXIDE 20.8 MMOL/L (24-32); TOTAL PROTEIN 5.4 G/DL (6.4-8.2); eGFR 6 ML/MIN
--- NOTE | 2021-04-27 07:49 | NUR ---
Paged Dr. Murphy PAGER ID: [phone] MESSAGE: [phone] Noah Morales. HGB 7.3, Hct 22.3. Can we order 1 unit of blood? DANIEL Stephens
[2021-04-27] MEDS: cloNIDine 0.1 mg tablet PO SCH ×2 (08:00→08:11)
[2021-04-27] MEDS ORDERED: albumin (human) 25% 100ml IV 100 ML IV PRN (08:00)
[2021-04-27] MEDS ORDERED: EPOETIN ALFA-EPBX 20,000 UNIT/ML 1 ML MDV IV ONE (08:00)
[2021-04-27] MEDS: CefTRIAXone 2gm/D5W 50ml BAG 50 ML IV SCH (08:09)
[2021-04-27] MEDS: furosemide 40mg tablet PO SCH (08:10)
[2021-04-27] MEDS: docusate sod 100mg capsule PO SCH ×2 (08:10→19:52)
[2021-04-27] MEDS: calcium acetate 667mg (PhosLO) capsule PO SCH ×4 (08:11→17:34)
[2021-04-27] MEDS: carVEDilol 12.5mg tablet PO SCH ×2 (08:12→19:54)
[2021-04-27] MEDS: allopurinol 100mg tablet PO SCH (08:12)
[2021-04-27] MEDS: pantoprazole 40mg Tablet.DR PO SCH (08:15)
[2021-04-27] MEDS: vitamin B comp w/Vit. C tab 1 TAB TABLET PO SCH (08:15)
[2021-04-27] MEDS: lactobacillus rhamnosus 10,000 MMU CELLS/CAPSULE PO SCH ×2 (08:16→19:52)
[2021-04-27] MEDS ORDERED: heparin 1,000 units/ml 10ml inj HE ONE ×2 (09:15)
[2021-04-27 10:57] LABS: BASOPHILS % (AUTO) 0.3 % (0-1); EOSINOPHILS # (AUTO) 0.3 X10'3 (0-0.9); EOSINOPHILS % (AUTO) 1.7 % (0-6); HEMOGLOBIN 7.3 g/dl (14.0-17.9); LYMPHOCYTES # (AUTO) 0.5 X10'3 (1.1-4.8); LYMPHOCYTES % (AUTO) 3.6 % (21-51); MEAN CORPUSCULAR HEMOGLOBIN 29.6 PG (27.0-31.0); MEAN CORPUSCULAR HGB CONC 33.3 g/dL (33.0-36.5); MEAN PLATELET VOLUME 11.2 FL (7.4-10.4); MONOCYTES # (AUTO) 1.4 X10'3 (0-0.9); MONOCYTES % (AUTO) 9.1 % (2-12); NEUTROPHILS # (AUTO) 12.9 X10'3 (1.8-7.7); NEUTROPHILS % (AUTO) 85.3 % (42-75); PLATELET COUNT 102 X10'3 (140-440); RED BLOOD COUNT 2.46 X10'6 (4.70-6.10); RED CELL DISTRIBUTION WIDTH 16.5 % (11.5-14.5); WHITE BLOOD COUNT 15.1 X10'3 (4.5-11.0)
[2021-04-27 10:59] LABS: HEMATOCRIT 21.9 % (42.0-52.0)
[2021-04-27 12:10] LABS: LARGE PLATELETS FEW; PLATELET ESTIMATE DECREASED
[2021-04-27 12:11] LABS: ANISOCYTOSIS 1+; MICROCYTOSIS 1+
--- NOTE | 2021-04-27 18:18 | NUR ---
Problems reprioritized. Patient report given, questions answered & plan of care reviewed with Katja STARK. Patient stable at transfer of care.
[2021-04-27 19:22] LABS: HEMATOCRIT 27.2 % (42.0-52.0); MEAN CORPUSCULAR HEMOGLOBIN 29.5 PG (27.0-31.0); MEAN CORPUSCULAR HGB CONC 33.2 g/dL (33.0-36.5); MEAN CORPUSCULAR VOLUME 88.8 FL (78-98); MEAN PLATELET VOLUME 10.8 FL (7.4-10.4); PLATELET COUNT 113 X10'3 (140-440); RED BLOOD COUNT 3.07 X10'6 (4.70-6.10); RED CELL DISTRIBUTION WIDTH 15.8 % (11.5-14.5); WHITE BLOOD COUNT 13.9 X10'3 (4.5-11.0)
[2021-04-27] MEDS: tamsulosin 0.4mg capsule PO SCH (20:33)
[2021-04-27] MEDS: atorvastatin 10mg tablet PO SCH (20:33)
[2021-04-27] MEDS: HYDROcodone/acetaminophen 10/325mg tab PO PRN (20:39)
[2021-04-27 21:03] LABS: BASOPHILS # (AUTO) 0.1 X10'3 (0-0.2); BASOPHILS % (AUTO) 0.5 % (0-1); EOSINOPHILS # (AUTO) 0.2 X10'3 (0-0.9); EOSINOPHILS % (AUTO) 1.2 % (0-6); HEMATOCRIT 28.6 % (42.0-52.0); HEMOGLOBIN 9.3 g/dl (14.0-17.9); LYMPHOCYTES # (AUTO) 0.7 X10'3 (1.1-4.8); LYMPHOCYTES % (AUTO) 4.5 % (21-51); MEAN CORPUSCULAR HEMOGLOBIN 29.5 PG (27.0-31.0); MEAN CORPUSCULAR HGB CONC 32.7 g/dL (33.0-36.5); MEAN CORPUSCULAR VOLUME 90.2 FL (78-98); MEAN PLATELET VOLUME 11.9 FL (7.4-10.4); MONOCYTES # (AUTO) 2.1 X10'3 (0-0.9); MONOCYTES % (AUTO) 13.7 % (2-12); NEUTROPHILS # (AUTO) 12.6 X10'3 (1.8-7.7); NEUTROPHILS % (AUTO) 80.1 % (42-75); PLATELET COUNT 118 X10'3 (140-440); RED BLOOD COUNT 3.17 X10'6 (4.70-6.10); RED CELL DISTRIBUTION WIDTH 15.5 % (11.5-14.5); WHITE BLOOD COUNT 15.7 X10'3 (4.5-11.0)
[2021-04-28 02:00] VITALS: BP 154/71
[2021-04-28 06:00] VITALS: BP 153/69
--- NOTE | 2021-04-28 06:10 | NUR ---
Problems reprioritized. Patient report given, questions answered & plan of care reviewed with LINCOLN Stephens.
[2021-04-28] MEDS: pantoprazole 40mg Tablet.DR PO SCH (07:39)
[2021-04-28] MEDS: docusate sod 100mg capsule PO SCH ×2 (07:39→19:21)
[2021-04-28] MEDS: carVEDilol 12.5mg tablet PO SCH ×2 (07:40→19:21)
[2021-04-28] MEDS: HYDROcodone/acetaminophen 10/325mg tab PO PRN ×2 (07:40→22:37)
[2021-04-28] MEDS: calcium acetate 667mg (PhosLO) capsule PO SCH ×3 (07:41→17:36)
[2021-04-28] MEDS: vitamin B comp w/Vit. C tab 1 TAB TABLET PO SCH (07:42)
[2021-04-28] MEDS: lactobacillus rhamnosus 10,000 MMU CELLS/CAPSULE PO SCH ×2 (07:43→19:21)
[2021-04-28] MEDS: allopurinol 100mg tablet PO SCH (07:43)
[2021-04-28] MEDS: furosemide 40mg tablet PO SCH (07:43)
[2021-04-28] MEDS: CefTRIAXone 2gm/D5W 50ml BAG 50 ML IV SCH (07:44)
[2021-04-28] MEDS: cloNIDine 0.1 mg tablet PO SCH (07:50)
[2021-04-28 08:50] LABS: ALANINE AMINOTRANSFERASE 24 U/L (12-78); ALBUMIN 2.7 G/DL (3.4-5.0); ALKALINE PHOSPHATASE 74 IU/L (46-116); ANION GAP 12 (8-16); ASPARTATE AMINO TRANSFERASE 20 U/L (10-37); BILIRUBIN,TOTAL 0.6 MG/DL (0.1-1.0); BLOOD UREA NITROGEN 34 MG/DL (7-18); BUN/CREATININE RATIO 5.1 (5.4-32.0); CALCIUM 8.2 MG/DL (8.5-10.1); CHLORIDE 102 MMOL/L (99-107); CREATININE 6.62 MG/DL (0.60-1.10); GLUCOSE 163 MG/DL (70-104); MAGNESIUM 2.2 MG/DL (1.5-2.4); PHOSPHORUS 4.5 MG/DL (2.3-4.5); SODIUM 138 MMOL/L (135-145); TOTAL CARBON DIOXIDE 24.5 MMOL/L (24-32); TOTAL PROTEIN 5.5 G/DL (6.4-8.2); eGFR 8 ML/MIN
[2021-04-28] MEDS: ipratropium 0.5 MG/2.5ML nebule IH PRN (09:17)
[2021-04-28] MEDS ORDERED: potassium Cl 40MEQ/1/2NS 520ml 520 ML IV PRN (10:30)
[2021-04-28] MEDS ORDERED: magnesium 2GM in 50ml NS 50 ML IV PRN (10:30)
[2021-04-28] MEDS ORDERED: potassium Cl 20mEq/100mL bag 100 ML IV PRN (10:30)
[2021-04-28] MEDS ORDERED: MESSAGE TO NURSING PO ONE ×5 (10:30→11:40)
[2021-04-28] MEDS ORDERED: potassium CL 10mEq/100ml bag 100 ML IV PRN (10:30)
[2021-04-28] MEDS ORDERED: magnesium 4gm in 100ml NS 100 ML IV PRN (10:30)
[2021-04-28] MEDS ORDERED: potassium Cl 20 mEq SR tablet PO PRN (10:30)
[2021-04-28] MEDS ORDERED: potassium Cl 40MEQ/250ML bag 250 ML IV PRN (10:30)
[2021-04-28 11:00] VITALS: BP 157/82
--- NOTE | 2021-04-28 11:01 | NUR ---
Paged RT and VASC for CABG tomorrow
--- NOTE | 2021-04-28 11:38 | NUR ---
Initial: Pt continues w/ adequate PO intake, mostly 100% of meals on Renal dialysis diet. Pt had last dialysis 04/27 w/ 1.9L out though no scaled wts. Pt may get CABG tomorrow per EMR. LBM 05/01. No nutrition intervention implemented at this time. Will continue to monitor for increased protein needs while on HD and possible CABG. Recommendations: 1) Continue renal diet 2) Monitor need for additional protein for satiety 3) Routine bowel care 4) Scaled weight this admit; scaled weights with dialysis thereafter Addendum: 04/28/21 at [address] Amended: Links added.
[2021-04-28] MEDS ORDERED: dextrose 50%-water 50ml dispensing syringe IV PRN (11:40)
[2021-04-28 11:56] LABS: PARTIAL THROMBOPLASTIN TIME 33 SECONDS (22-32)
[2021-04-28] MEDS ORDERED: ringers solution, lacted 1,000 ML IV ONE (14:40)
[2021-04-28 15:00] VITALS: BP 165/76
[2021-04-28 15:34] LABS: ABG BASE EXCESS -1.9 mmol/L (-2.0-2.0); ABG HCO3 21.7 mmol/L (22.0-26.0); ABG PCO2 (T) 32.4 mmHg (35.0-48.0); ABG PO2 (T) 62.5 mmHg (75.0-100.0); ALLEN'S TEST POSITIVE; FCOHb 0.3 % (0.0-3.9); FMetHb 0.4 % (0.0-1.5); FO2Hb 91.4 % (94-97); TOTAL HEMOGLOBIN 10.2 G/dl (14.0-18.0)
--- NOTE | 2021-04-28 18:30 | NUR ---
Patient in room PCU 3016B. I have received report from [employer] and had the opportunity to ask questions and assume patient care.
--- NOTE | 2021-04-28 18:36 | NUR ---
Problems reprioritized. Patient report given, questions answered & plan of care reviewed with Katja STARK. Patient stable at transfer of care.
[2021-04-28 19:47] LABS: CLARITY,URINE CLEAR (Clear); COLOR,URINE YELLOW (Yellow); UA COLLECTION TYPE NON-SPECIFIED
[2021-04-28 19:48] LABS: GLUCOSE, URINE NEGATIVE (Neg); KETONES,URINE NEGATIVE (Neg); LEUKOCYTE ESTERASE ,URINE NEGATIVE (Neg); NITRITES, URINE NEGATIVE (Neg); OCCULT BLOOD,URINE NEGATIVE (Neg); PROTEIN,URINE 100 mg/dl (Neg); UROBILINOGEN,URINE 0.2 E.U/dL (0.2-1.0)
[2021-04-28 19:52] LABS: HYALINE CASTS 0-3 /LPF (NEGATIVE); MUCUS STRANDS FEW /LPF (Neg); SQUAMOUS EPITHELIAL CELL,UR MODERATE /LPF (FEW)
[2021-04-28 19:53] LABS: BACTERIA,URINE FEW /HPF (Neg); RBC,URINE 0-2 /HPF (0-2)
[2021-04-28] MEDS: sod chloride 0.9% 10ml flush syringe IV SCH (20:00)
[2021-04-28] MEDS: atorvastatin 10mg tablet PO SCH (20:31)
[2021-04-28] MEDS: tamsulosin 0.4mg capsule PO SCH (20:31)
[2021-04-28 22:00] VITALS: BP 173/80
--- NOTE | 2021-04-28 22:04 | NUR ---
MD Tellez notified about pt requesting medication for sleep. Telephone order for melatonin 3 mg QHS prn
[2021-04-28] MEDS: Melatonin 3mg tablet PO SCH (22:33)
[2021-04-28 23:00] VITALS: BP 160/77
[2021-04-29] VITALS (17 sets, daily range): BP systolic 114–169; BP diastolic 42–75
[2021-04-29] MEDS ORDERED: ringers solution, lacted 1,000 ML IV PRN (03:00)
[2021-04-29] MEDS ORDERED: MALTODEXTRIN/FRUCTOSE 0.68 KCAL/ML LIQUID 296ML BOTTLE PO ONE (05:00)
[2021-04-29] MEDS ORDERED: cefazolin/dext.iso 2gm/100ml 100 ML IV ONE (05:30)
[2021-04-29] MEDS: Insulin Reg/NS 100units/100mL 100 ML IV SCH (05:30)
[2021-04-29] MEDS ORDERED: gabapentin 400mg capsule PO ONE (05:30)
[2021-04-29] MEDS ORDERED: insulin glargine (Lantus) pen - multi-dose SQ PRN ×2 (05:30→15:10)
[2021-04-29] MEDS ORDERED: famotidine 20mg tablet PO ONE (06:00)
[2021-04-29] MEDS ORDERED: LORazepam 2 mg/ml vial IV ONE (06:00)
[2021-04-29 06:17] LABS: ALANINE AMINOTRANSFERASE 21 U/L (12-78); ALBUMIN 2.5 G/DL (3.4-5.0); ALBUMIN/GLOBULIN RATIO 0.9 (1.1-1.5); ALKALINE PHOSPHATASE 74 IU/L (46-116); ANION GAP 9 (8-16); ASPARTATE AMINO TRANSFERASE 17 U/L (10-37); BASOPHILS # (AUTO) 0.1 X10'3 (0-0.2); BASOPHILS % (AUTO) 0.5 % (0-1); BILIRUBIN,TOTAL 0.6 MG/DL (0.1-1.0); BLOOD UREA NITROGEN 43 MG/DL (7-18); BUN/CREATININE RATIO 5.5 (5.4-32.0); CALCIUM 8.1 MG/DL (8.5-10.1); CHLORIDE 105 MMOL/L (99-107); CREATININE 7.81 MG/DL (0.60-1.10); EOSINOPHILS # (AUTO) 0.4 X10'3 (0-0.9); EOSINOPHILS % (AUTO) 3.5 % (0-6); GLUCOSE 129 MG/DL (70-104); HEMATOCRIT 26.3 % (42.0-52.0); HEMOGLOBIN 8.9 g/dl (14.0-17.9); LYMPHOCYTES # (AUTO) 0.7 X10'3 (1.1-4.8); LYMPHOCYTES % (AUTO) 5.8 % (21-51); MAGNESIUM 2.2 MG/DL (1.5-2.4); MEAN CORPUSCULAR HEMOGLOBIN 30.2 PG (27.0-31.0); MEAN CORPUSCULAR HGB CONC 33.6 g/dL (33.0-36.5); MEAN CORPUSCULAR VOLUME 89.8 FL (78-98); MEAN PLATELET VOLUME 10.6 FL (7.4-10.4); MONOCYTES # (AUTO) 1.4 X10'3 (0-0.9); MONOCYTES % (AUTO) 11.4 % (2-12); NEUTROPHILS # (AUTO) 9.8 X10'3 (1.8-7.7); NEUTROPHILS % (AUTO) 78.8 % (42-75); PLATELET COUNT 125 X10'3 (140-440); POTASSIUM 4.1 MMOL/L (3.5-5.1); RED BLOOD COUNT 2.93 X10'6 (4.70-6.10); RED CELL DISTRIBUTION WIDTH 15.6 % (11.5-14.5); SODIUM 139 MMOL/L (135-145); TOTAL CARBON DIOXIDE 24.6 MMOL/L (24-32); TOTAL PROTEIN 5.2 G/DL (6.4-8.2); WHITE BLOOD COUNT 12.4 X10'3 (4.5-11.0); eGFR 7 ML/MIN
--- NOTE | 2021-04-29 06:25 | NUR ---
Problems reprioritized. Patient report given, questions answered & plan of care reviewed with
--- NOTE | 2021-04-29 06:44 | NUR ---
Patient in room PCU 3016. I have received report from LINCOLN Hightower and had the opportunity to ask questions and assume patient care.
[2021-04-29] MEDS ORDERED: heparin 1,000 units/ml 10ml inj HE ONE ×2 (06:45)
[2021-04-29] MEDS: lactobacillus rhamnosus 10,000 MMU CELLS/CAPSULE PO SCH (08:00)
[2021-04-29] MEDS: calcium acetate 667mg (PhosLO) capsule PO SCH ×3 (08:00→14:28)
[2021-04-29] MEDS: pantoprazole 40mg Tablet.DR PO SCH (08:00)
[2021-04-29] MEDS ORDERED: heparin 10,000 units/1 ML INJ ONE (08:00)
[2021-04-29] MEDS ORDERED: EPOETIN ALFA-EPBX 20,000 UNIT/ML 1 ML MDV IV ONE (08:00)
[2021-04-29] MEDS: docusate sod 100mg capsule PO SCH (08:00)
[2021-04-29] MEDS: sod chloride 0.9% 10ml flush syringe IV SCH (08:00)
[2021-04-29] MEDS ORDERED: potassium Cl 2 mEq/ml inj IV ONE (08:00)
[2021-04-29] MEDS: furosemide 40mg tablet PO SCH (08:00)
[2021-04-29] MEDS ORDERED: MAGNESIUM SULFATE 4 MEQ/ML (5gm/10ml) injection ONE (08:00)
[2021-04-29] MEDS ORDERED: LIDOcaine 2% (20 mg/ml) 5ml cardiac syringe ONE (08:00)
[2021-04-29] MEDS ORDERED: aminocaproic acid 250 MG/1 ML inj. ONE (08:00)
[2021-04-29] MEDS: allopurinol 100mg tablet PO SCH (08:00)
[2021-04-29] MEDS: cloNIDine 0.1 mg tablet PO SCH (08:00)
[2021-04-29] MEDS: vitamin B comp w/Vit. C tab 1 TAB TABLET PO SCH (08:00)
[2021-04-29] MEDS: mupirocin 2% nasal ointment 1gm UD NS SCH ×2 (08:00→10:33)
[2021-04-29] MEDS ORDERED: phenylephrine 10mg/ml inj. ONE ×2 (08:00→15:25)
[2021-04-29] MEDS ORDERED: albumin (human) 25% 100ml IV 100 ML IV PRN (08:00)
[2021-04-29] MEDS ORDERED: papaverine 30 mg/ml 2ml inj. ONE (08:00)
[2021-04-29] MEDS ORDERED: sodium bicarbonate (8.4%) 1 mEq/ml syringe ONE (08:00)
[2021-04-29] MEDS ORDERED: methylPREDNISolone sod succ 1000mg vial ONE (08:00)
[2021-04-29] MEDS ORDERED: albumin (human) 25% 100 ML IV solution IV ONE (08:00)
[2021-04-29] MEDS: CefTRIAXone 2gm/D5W 50ml BAG 50 ML IV SCH (08:00)
--- NOTE | 2021-04-29 09:00 | NUR ---
Was told to hold all AM meds except coreg and rocephin.
[2021-04-29] MEDS ORDERED: MESSAGE TO NURSING PO ONE (10:00)
[2021-04-29] MEDS ORDERED: SUFENTANIL CITRATE 50 MCG/ML 2ml ampule IV ONE (10:23)
[2021-04-29] MEDS ORDERED: midazolam 1 mg/ML 2ml injection ONE (10:25)
[2021-04-29] MEDS: carVEDilol 12.5mg tablet PO SCH (10:33)
[2021-04-29] MEDS ORDERED: ceFAZolin 1000mg inj ONE (10:35)
[2021-04-29] MEDS ORDERED: epiNEPHrine 1 mg/ml inj ONE ×2 (10:35→15:25)
--- NOTE | 2021-04-29 11:24 | NUR ---
All preop interventions completed. Pt was taken to OR.
[2021-04-29] MEDS ORDERED: nitroGLYCERIN in D5W 50mg/250ml (Tridil) infusion IV ONE (11:29)
[2021-04-29] MEDS ORDERED: isoflurane 100ml inhalation liquid IH ONE (11:29)
[2021-04-29] MEDS ORDERED: DOPamine/D5W 400mg/250ml bag IV ONE (11:29)
[2021-04-29] MEDS ORDERED: NORepinephrine 8 MG in NS 250 ML BAG (32 mcg/ml) IV ONE (11:29)
[2021-04-29] MEDS ORDERED: protamine sulf. 10mg/ml inj. IV ONE (11:29)
[2021-04-29] MEDS ORDERED: papaverine 30 mg/ml 2ml inj. IA ONE (11:30)
[2021-04-29] MEDS ORDERED: methylPREDNISolone sod succ 125mg/2ml vial IV ONE (12:00)
[2021-04-29 12:29] LABS: ABG BASE EXCESS VENOUS -2.3 mmol/L (-2.0 - 2.0); ABG HCO3 VENOUS 24.2 mmol/L (21.0-28.0); ABG PCO2 VENOUS 50.5 mmHg (41.0-54.0); ABG PO2 VENOUS 50.9 mmHg (25.0-35.0); CL (ABG) 101 mmol/L (98-110); FCOHb VENOUS 0.9 %; FO2Hb VENOUS 81.1 %; GLUCOSE (ABG) 208 mg/dl (70-105); IONIZED CA (ABG) 1.11 mmol/L (1.10-1.43); K (ABG) 3.3 mmol/L (3.5-5.0); TOTAL HEMOGLOBIN 8.8 G/dl (14.0-18.0)
--- NOTE | 2021-04-29 12:36 | NUR ---
Problems reprioritized. Patient report given, questions answered & plan of care reviewed with LINCOLN Chiang.
[2021-04-29 13:10] LABS: ABG BASE EXCESS VENOUS -6.2 mmol/L (-2.0 - 2.0); ABG HCO3 VENOUS 19.3 mmol/L (21.0-28.0); ABG PCO2 VENOUS 38.1 mmHg (41.0-54.0); ABG PO2 VENOUS 46.6 mmHg (25.0-35.0); CL (ABG) 114 mmol/L (98-110); FCOHb VENOUS 1.3 %; FHHb VENOUS 20.8 %; FMetHb VENOUS 0.4 % (0.0 - 0.5); FO2Hb VENOUS 77.5 %; GLUCOSE (ABG) 199 mg/dl (70-105)
[2021-04-29 13:22] LABS: ABG BASE EXCESS VENOUS 2.1 mmol/L (-2.0 - 2.0); ABG HCO3 VENOUS 27.2 mmol/L (21.0-28.0); ABG PCO2 VENOUS 45.9 mmHg (41.0-54.0); ABG PO2 VENOUS 40.8 mmHg (25.0-35.0); CL (ABG) 98 mmol/L (98-110); FCOHb VENOUS 1.5 %; FHHb VENOUS 23.6 %; FMetHb VENOUS 0.3 % (0.0 - 0.5); FO2Hb VENOUS 74.6 %; GLUCOSE (ABG) 148 mg/dl (70-105); IONIZED CA (ABG) 0.88 mmol/L (1.10-1.43); K (ABG) 3.2 mmol/L (3.5-5.0)
[2021-04-29 13:24] LABS: ABG HCO3 26.6 mmol/L (22.0-26.0); ABG OXYGEN SATURATION 99.9 % (94-97); ABG PCO2 42.1 mmHg (35.0-48.0); ABG PO2 387.9 mmHg (75.0-100.0); CL (ABG) 100 mmol/L (98-110); FCOHb 1.8 % (0.0-3.9); FO2Hb 98.1 % (94-97); GLUCOSE (ABG) 147 mg/dl (70-105); IONIZED CA (ABG) 0.93 mmol/L (1.10-1.43); K (ABG) 3.1 mmol/L (3.5-5.0)
[2021-04-29 13:51] LABS: ABG HCO3 29.3 mmol/L (22.0-26.0); ABG OXYGEN SATURATION 99.6 % (94-97); ABG PCO2 48.5 mmHg (35.0-48.0); ABG PO2 297.9 mmHg (75.0-100.0); CL (ABG) 100 mmol/L (98-110); FCOHb 0.8 % (0.0-3.9); FMetHb 0.3 % (0.0-1.5); FO2Hb 98.5 % (94-97); GLUCOSE (ABG) 121 mg/dl (70-105); IONIZED CA (ABG) 0.94 mmol/L (1.10-1.43); K (ABG) 3.7 mmol/L (3.5-5.0); TOTAL HEMOGLOBIN 8.1 G/dl (14.0-18.0)
[2021-04-29] MEDS ORDERED: ipratropium/albuterol 3ml nebule IH PRN (13:55)
[2021-04-29 14:30] LABS: ABG BASE EXCESS VENOUS 1.2 mmol/L (-2.0 - 2.0); ABG HCO3 VENOUS 26.9 mmol/L (21.0-28.0); ABG PCO2 VENOUS 48.2 mmHg (41.0-54.0); ABG PO2 VENOUS 46.3 mmHg (25.0-35.0); CL (ABG) 101 mmol/L (98-110); FCOHb VENOUS 1.3 %; FHHb VENOUS 18.9 %; FMetHb VENOUS 0.3 % (0.0 - 0.5); FO2Hb VENOUS 79.5 %; GLUCOSE (ABG) 74 mg/dl (70-105); IONIZED CA (ABG) 0.98 mmol/L (1.10-1.43); K (ABG) 3.5 mmol/L (3.5-5.0); TOTAL HEMOGLOBIN 8.3 G/dl (14.0-18.0)
--- NOTE | 2021-04-29 15:00 | NUR ---
Received to room 2045, accompanied by MDs and surgical crew. Placed on ventilator, to threat monitoring analyst, arterial line and PA line pressure monitored. Chest tubes to suction at 20 cm. Jiménez cath to gravity drainage. Dressings are dry and intact. See assessment record. All vasoactive drugs are infusing via central line.
[2021-04-29] MEDS ORDERED: magnesium 4gm in 100ml NS 100 ML IV PRN (15:10)
[2021-04-29] MEDS ORDERED: potassium CL 10mEq/100ml bag 100 ML IV PRN (15:10)
[2021-04-29] MEDS ORDERED: potassium Cl 40MEQ/250ML bag 250 ML IV PRN (15:10)
[2021-04-29] MEDS ORDERED: bisacodyl 10mg suppository rectal RC PRN (15:10)
[2021-04-29] MEDS ORDERED: pantoprazole 40 MG vial IV ONE (15:10)
[2021-04-29] MEDS ORDERED: potassium Cl 20mEq/100mL bag 100 ML IV PRN (15:10)
[2021-04-29] MEDS ORDERED: magnesium 2GM in 50ml NS 50 ML IV PRN (15:10)
[2021-04-29] MEDS ORDERED: Insulin Reg/NS 100units/100mL 100 ML IV SCH (15:10)
[2021-04-29] MEDS ORDERED: morphine 4 MG/ML inj SYRINge IV PRN ×2 (15:10)
[2021-04-29] MEDS ORDERED: magnesium citrate 296ml oral solution PO PRN (15:10)
[2021-04-29] MEDS ORDERED: acetaminophen 325mg tablet PO PRN ×2 (15:10)
[2021-04-29] MEDS ORDERED: ondansetron/PF 4mg/2ml inj IV PRN (15:10)
[2021-04-29] MEDS ORDERED: dextrose 50%-water 50ml dispensing syringe IV PRN (15:10)
[2021-04-29] MEDS ORDERED: nitroGLYCERIN-Tridil 50MG/D5W 250 ML IV PRN (15:10)
[2021-04-29] MEDS ORDERED: mineral oil 133ml enema RC PRN (15:10)
[2021-04-29] MEDS ORDERED: metoclopramide 5 mg/ml inj IV PRN (15:10)
[2021-04-29] MEDS ORDERED: potassium Cl 40MEQ/1/2NS 520ml 520 ML IV PRN (15:10)
[2021-04-29] MEDS ORDERED: DOPamine 400mg/D5W 250ml 250 ML IV PRN (15:10)
[2021-04-29] MEDS ORDERED: normal saline 250ml IV soln 250 ML IV PRN (15:10)
[2021-04-29] MEDS ORDERED: potassium Cl 20 mEq SR tablet PO PRN (15:10)
[2021-04-29] MEDS ORDERED: Neutra Phos packet PO PRN (15:10)
[2021-04-29] MEDS ORDERED: sodium phosphate inj. 15 MMOL in dextrose 5%-water 250 ML IV PRN (15:10)
[2021-04-29] MEDS ORDERED: niCARDipine-NS 40mg/200ml IVPB 200 ML IV PRN (15:10)
[2021-04-29] MEDS ORDERED: magnesium hydroxide 30ml (MOM) UD suspension PO PRN (15:10)
[2021-04-29] MEDS ORDERED: sodium phosphate inj. 30 MMOL in dextrose 5%-water 250 ML IV PRN (15:10)
[2021-04-29] MEDS ORDERED: dextrose 50%-water 50ml dispensing syringe IV ONE (15:13)
--- NOTE | 2021-04-29 15:22 | NUR ---
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 Pt would benefit from nutrition therapy education once stable. Will continue to follow. Addendum: 04/29/21 at [address] Amended: Links added.
[2021-04-29 15:23] LABS: ABG BASE EXCESS 0.5 mmol/L (-2.0-2.0); ABG HCO3 26.2 mmol/L (22.0-26.0); ABG OXYGEN SATURATION 98.9 % (94-97); ABG PCO2 (T) 46.8 mmHg (35.0-48.0); ABG PO2 (T) 246.4 mmHg (75.0-100.0); FCOHb 0.3 % (0.0-3.9); FMetHb 0.5 % (0.0-1.5); FO2Hb 98.1 % (94-97); PATIENT TEMPERATURE 36.6; PEEP 5 cm H2O; RESPIRATORY RATE 12 b/min; TIDAL VOLUME 600 mL
[2021-04-29] MEDS ORDERED: acetaminophen 1,000mg/100ml IV 100 ML IV ONE (15:25)
[2021-04-29] MEDS ORDERED: LIDOcaine 2% (20mg/ml) 5ml vial ONE (15:25)
[2021-04-29] MEDS ORDERED: etomidate 2mg/ml inj. ONE (15:25)
[2021-04-29] MEDS ORDERED: rocuronium 10mg/ml inj IV ONE (15:25)
[2021-04-29] MEDS ORDERED: ePHEDrine 50MG/ML INJ. ONE (15:25)
[2021-04-29 15:46] LABS: BASOPHILS # (AUTO) 0.1 X10'3 (0-0.2); BASOPHILS % (AUTO) 0.4 % (0-1); EOSINOPHILS # (AUTO) 0.3 X10'3 (0-0.9); HEMATOCRIT 27.3 % (42.0-52.0); LYMPHOCYTES # (AUTO) 0.3 X10'3 (1.1-4.8); LYMPHOCYTES % (AUTO) 1.7 % (21-51); MEAN CORPUSCULAR HEMOGLOBIN 29.2 PG (27.0-31.0); MEAN CORPUSCULAR VOLUME 88.3 FL (78-98); MEAN PLATELET VOLUME 10.5 FL (7.4-10.4); MONOCYTES # (AUTO) 0.7 X10'3 (0-0.9); MONOCYTES % (AUTO) 4.3 % (2-12); NEUTROPHILS # (AUTO) 14.4 X10'3 (1.8-7.7); NEUTROPHILS % (AUTO) 91.6 % (42-75); PLATELET COUNT 98 X10'3 (140-440); RED CELL DISTRIBUTION WIDTH 15.1 % (11.5-14.5); WHITE BLOOD COUNT 15.7 X10'3 (4.5-11.0)
[2021-04-29] MEDS: albumin (Human) 5% 250ml 250 ML IV PRN ×3 (15:56→21:40)
[2021-04-29] MEDS ORDERED: dextrose 5%-1/2 normal saline 1,000 ML IV SCH (16:00)
[2021-04-29] MEDS: ceFAZolin/D5W- 1GM premix 50 ML IV SCH (16:04)
[2021-04-29] MEDS: sodium chloride 0.45% 1,000 ML IV SCH (16:04)
[2021-04-29 16:05] LABS: ALANINE AMINOTRANSFERASE 19 U/L (12-78); ALBUMIN 2.3 G/DL (3.4-5.0); ALBUMIN/GLOBULIN RATIO 1.1 (1.1-1.5); ALKALINE PHOSPHATASE 56 IU/L (46-116); ANION GAP 8 (8-16); ASPARTATE AMINO TRANSFERASE 23 U/L (10-37); BILIRUBIN,TOTAL 0.8 MG/DL (0.1-1.0); BLOOD UREA NITROGEN 19 MG/DL (7-18); BUN/CREATININE RATIO 4.6 (5.4-32.0); CALCIUM 6.9 MG/DL (8.5-10.1); CHLORIDE 106 MMOL/L (99-107); CREATININE 4.17 MG/DL (0.60-1.10); SODIUM 142 MMOL/L (135-145); TOTAL CARBON DIOXIDE 27.8 MMOL/L (24-32); TOTAL PROTEIN 4.4 G/DL (6.4-8.2); eGFR 14 ML/MIN
[2021-04-29 16:15] LABS: PARTIAL THROMBOPLASTIN TIME 34 SECONDS (22-32)
[2021-04-29 16:49] LABS: GLUCOSE 32 MG/DL (70-104)
--- NOTE | 2021-04-29 17:04 | NUR ---
Potassium 4.0 and Magnesium 2.0; spoke with scrap baler Dr. Guadarrama following patient with orders to hold all electrolyte replacement orders.
[2021-04-29] MEDS ORDERED: NORepinephrine 8mg/ 250ml NS 250 ML IV PRN (18:00)
--- NOTE | 2021-04-29 18:25 | NUR ---
Problems reprioritized. Patient report given, questions answered & plan of care reviewed with Scott STARK.
--- NOTE | 2021-04-29 19:00 | NUR ---
Patient in room ICU 2045. I have received report from Андрей STARK and had the opportunity to ask questions and assume patient care.
[2021-04-29] MEDS: sennosides/docusate sodium tablet PO SCH (20:00)
[2021-04-29] MEDS ORDERED: vancomycin/NS 1 GM ADD-VANTAGE 250 ML IV SCH (20:00)
[2021-04-29] MEDS: atorvastatin 10mg tablet PO SCH (21:00)
[2021-04-29] MEDS: Melatonin 3mg tablet PO SCH (21:00)
[2021-04-29] MEDS: tamsulosin 0.4mg capsule PO SCH (21:00)
[2021-04-29] MEDS: gabapentin 300mg capsule PO SCH (22:09)
--- NOTE | 2021-04-29 23:00 | NUR ---
Talked to Trey PRICE. He said to To change the Vanco to q 24, He also said we could give another albumin after the third one if CI does not go above 2.0
[2021-04-30] VITALS (24 sets, daily range): BP systolic 95–140; BP diastolic 32–79
[2021-04-30] MEDS: ceFAZolin/D5W- 1GM premix 50 ML IV SCH ×3 (00:22→09:13)
[2021-04-30] MEDS: mupirocin 2% nasal ointment 1gm UD NS SCH ×3 (00:25→20:00)
[2021-04-30 00:49] LABS: ALBUMIN 2.7 G/DL (3.4-5.0); ANION GAP 12 (8-16); BLOOD UREA NITROGEN 27 MG/DL (7-18); BUN/CREATININE RATIO 5.7 (5.4-32.0); CALCIUM 6.9 MG/DL (8.5-10.1); CHLORIDE 106 MMOL/L (99-107); CREATININE 4.72 MG/DL (0.60-1.10); GLUCOSE 110 MG/DL (70-104); SODIUM 142 MMOL/L (135-145); TOTAL CARBON DIOXIDE 23.8 MMOL/L (24-32); eGFR 12 ML/MIN
[2021-04-30 00:53] LABS: PHOSPHORUS 3.8 MG/DL (2.3-4.5)
[2021-04-30 01:35] LABS: BASOPHILS % (AUTO) 0.1 % (0-1); EOSINOPHILS % (AUTO) 0.1 % (0-6); HEMATOCRIT 24.1 % (42.0-52.0); LYMPHOCYTES # (AUTO) 0.3 X10'3 (1.1-4.8); LYMPHOCYTES % (AUTO) 1.9 % (21-51); MEAN CORPUSCULAR HEMOGLOBIN 29.4 PG (27.0-31.0); MEAN PLATELET VOLUME 11.1 FL (7.4-10.4); MONOCYTES # (AUTO) 0.3 X10'3 (0-0.9); MONOCYTES % (AUTO) 2.3 % (2-12); NEUTROPHILS # (AUTO) 14.3 X10'3 (1.8-7.7); NEUTROPHILS % (AUTO) 95.6 % (42-75); PLATELET COUNT 103 X10'3 (140-440); RED BLOOD COUNT 2.71 X10'6 (4.70-6.10); RED CELL DISTRIBUTION WIDTH 15.5 % (11.5-14.5)
[2021-04-30 02:07] LABS: ABG BASE EXCESS -4.2 mmol/L (-2.0-2.0); ABG HCO3 20.7 mmol/L (22.0-26.0); ABG OXYGEN SATURATION 96.4 % (94-97); ABG PCO2 (T) 36.4 mmHg (35.0-48.0); ABG PO2 (T) 87.5 mmHg (75.0-100.0); FCOHb 0.2 % (0.0-3.9); FMetHb 0.4 % (0.0-1.5); FO2Hb 95.8 % (94-97); PATIENT TEMPERATURE 36.6; PEEP 5 cm H2O
[2021-04-30] MEDS ORDERED: albumin (Human) 5% 250ml 250 ML IV ONE (08:00)
[2021-04-30] MEDS: gabapentin 300mg capsule PO SCH ×3 (08:00→21:00)
[2021-04-30] MEDS: albumin (Human) 5% 250ml 250 ML IV PRN (08:00)
[2021-04-30] MEDS: furosemide 40mg tablet PO SCH (08:00)
[2021-04-30] MEDS: metoprolol tartrate 12.5mg (1/2 tablet) PO SCH ×2 (08:00→20:00)
[2021-04-30] MEDS: cloNIDine 0.1 mg tablet PO SCH (08:00)
[2021-04-30] MEDS: vitamin B comp w/Vit. C tab 1 TAB TABLET PO SCH (09:13)
[2021-04-30] MEDS: sennosides/docusate sodium tablet PO SCH ×2 (09:13→19:48)
[2021-04-30] MEDS: allopurinol 100mg tablet PO SCH (09:14)
[2021-04-30] MEDS: calcium acetate 667mg (PhosLO) capsule PO SCH ×3 (09:14→18:02)
[2021-04-30] MEDS: aspirin 325mg tablet, delayed-release (Ecotrin) PO SCH (09:14)
[2021-04-30] MEDS: HYDROcodone/acetaminophen 10/325mg tab PO PRN ×2 (10:40→16:14)
[2021-04-30] MEDS ORDERED: heparin 1,000 units/ml 10ml inj HE ONE ×2 (11:30)
[2021-04-30] MEDS: Insulin Reg/NS 100units/100mL 100 ML IV SCH (13:38)
[2021-04-30 14:47] LABS: HEMOGLOBIN 7.7 g/dl (14.0-17.9); MEAN CORPUSCULAR HEMOGLOBIN 28.9 PG (27.0-31.0); MEAN CORPUSCULAR HGB CONC 32.1 g/dL (33.0-36.5); MEAN PLATELET VOLUME 10.7 FL (7.4-10.4); PLATELET COUNT 130 X10'3 (140-440); RED BLOOD COUNT 2.67 X10'6 (4.70-6.10); RED CELL DISTRIBUTION WIDTH 16.3 % (11.5-14.5)
[2021-04-30 14:53] LABS: WHITE BLOOD COUNT 25.7 X10'3 (4.5-11.0)
--- NOTE | 2021-04-30 15:10 | NUR ---
Critical WBC 25.7; Dr. Sotomayor notified. also aware of Hgb 7.7. No new orders at this time, but to recheck in AM unless patient becomes symptomatic.
[2021-04-30] MEDS ORDERED: dextrose 50%-water 50ml dispensing syringe IV PRN ×2 (17:30)
[2021-04-30] MEDS ORDERED: dextrose ORAL solution 15 GM/59 ML bottle PO PRN ×2 (17:30)
[2021-04-30] MEDS ORDERED: glucagon, human recombinant 1mg kit SUBCUT PRN (17:30)
--- NOTE | 2021-04-30 18:18 | NUR ---
Problems reprioritized. Patient report given, questions answered & plan of care reviewed with Scott STARK.
--- NOTE | 2021-04-30 19:00 | NUR ---
Patient in room ICU 2045. I have received report from Андрей STARK and had the opportunity to ask questions and assume patient care.
[2021-04-30] MEDS: ipratropium 0.5 MG/2.5ML nebule IH PRN (19:11)
--- NOTE | 2021-04-30 19:15 | NUR ---
Noticed slight facial drop on left side of face. Neuro assessment performed no other deficits noted. Dr. Sotomayor was notified. he said he would check it out in the morning. Will notify doctor if symptoms progress.
[2021-04-30] MEDS: tamsulosin 0.4mg capsule PO SCH (19:47)
[2021-04-30] MEDS: atorvastatin 10mg tablet PO SCH (19:48)
[2021-04-30] MEDS: insulin glargine (Lantus) pen - multi-dose SQ SCH (19:51)
[2021-04-30] MEDS: insulin Lispro (HumaLOG) vial - multi-dose SQ SCH (19:53)
[2021-04-30] MEDS: vancomycin/NS 1 GM ADD-VANTAGE 250 ML IV SCH (20:00)
[2021-04-30] MEDS: Melatonin 3mg tablet PO SCH (21:00)
[2021-05-01] VITALS (23 sets, daily range): BP systolic 95–129; BP diastolic 51–75
[2021-05-01] MEDS: ceFAZolin/D5W- 1GM premix 50 ML IV SCH (00:57)
--- NOTE | 2021-05-01 06:20 | NUR ---
Report given to Sridhar STARK.
[2021-05-01 06:49] LABS: BASOPHILS % (AUTO) 0.1 % (0-1); EOSINOPHILS % (AUTO) 0 % (0-6); HEMATOCRIT 24.6 % (42.0-52.0); LYMPHOCYTES # (AUTO) 0.6 X10'3 (1.1-4.8); LYMPHOCYTES % (AUTO) 2.5 % (21-51); MEAN CORPUSCULAR HEMOGLOBIN 29.5 PG (27.0-31.0); MEAN CORPUSCULAR HGB CONC 32.6 g/dL (33.0-36.5); MEAN CORPUSCULAR VOLUME 90.3 FL (78-98); MEAN PLATELET VOLUME 10.5 FL (7.4-10.4); MONOCYTES # (AUTO) 1.3 X10'3 (0-0.9); MONOCYTES % (AUTO) 5.6 % (2-12); NEUTROPHILS # (AUTO) 20.8 X10'3 (1.8-7.7); NEUTROPHILS % (AUTO) 91.8 % (42-75); PLATELET COUNT 157 X10'3 (140-440); RED BLOOD COUNT 2.73 X10'6 (4.70-6.10); RED CELL DISTRIBUTION WIDTH 16.4 % (11.5-14.5); WHITE BLOOD COUNT 22.6 X10'3 (4.5-11.0)
[2021-05-01 06:59] LABS: PARTIAL THROMBOPLASTIN TIME 34 SECONDS (22-32)
[2021-05-01 07:20] LABS: ALBUMIN 2.6 G/DL (3.4-5.0); ANION GAP 17 (8-16); BLOOD UREA NITROGEN 44 MG/DL (7-18); BUN/CREATININE RATIO 6.7 (5.4-32.0); CALCIUM 7.9 MG/DL (8.5-10.1); CHLORIDE 102 MMOL/L (99-107); CREATININE 6.55 MG/DL (0.60-1.10); GLUCOSE 219 MG/DL (70-104); MAGNESIUM 2.2 MG/DL (1.5-2.4); PHOSPHORUS 6.1 MG/DL (2.3-4.5); POTASSIUM 4.9 MMOL/L (3.5-5.1); SODIUM 140 MMOL/L (135-145); TOTAL CARBON DIOXIDE 20.6 MMOL/L (24-32); eGFR 8 ML/MIN
[2021-05-01] MEDS: furosemide 40mg tablet PO SCH (08:11)
[2021-05-01] MEDS: gabapentin 300mg capsule PO SCH ×2 (08:11→14:56)
[2021-05-01] MEDS: vitamin B comp w/Vit. C tab 1 TAB TABLET PO SCH (08:12)
[2021-05-01] MEDS: HYDROcodone/acetaminophen 10/325mg tab PO PRN ×2 (08:12→12:23)
[2021-05-01] MEDS: sennosides/docusate sodium tablet PO SCH ×2 (08:12→19:40)
[2021-05-01] MEDS: aspirin 325mg tablet, delayed-release (Ecotrin) PO SCH (08:12)
[2021-05-01] MEDS: metoprolol tartrate 12.5mg (1/2 tablet) PO SCH ×2 (08:14→19:41)
[2021-05-01] MEDS: allopurinol 100mg tablet PO SCH (08:15)
[2021-05-01] MEDS: pantoprazole 40mg Tablet.DR PO SCH (08:15)
[2021-05-01] MEDS: cloNIDine 0.1 mg tablet PO SCH (08:15)
[2021-05-01] MEDS: mupirocin 2% nasal ointment 1gm UD NS SCH (08:16)
[2021-05-01] MEDS: calcium acetate 667mg (PhosLO) capsule PO SCH ×3 (08:16→18:00)
[2021-05-01] MEDS: vancomycin/NS 1 GM ADD-VANTAGE 250 ML IV SCH (08:17)
[2021-05-01] MEDS: insulin Lispro (HumaLOG) vial - multi-dose SQ SCH ×2 (08:27→18:04)
[2021-05-01] MEDS ORDERED: albumin (human) 25% 100ml IV 100 ML IV PRN (09:20)
[2021-05-01] MEDS ORDERED: EPOETIN ALFA-EPBX 20,000 UNIT/ML 1 ML MDV IV ONE (09:20)
[2021-05-01] MEDS ORDERED: heparin 1,000 units/ml 10ml inj HE ONE ×2 (09:25)
[2021-05-01 10:31] LABS: ANISOCYTOSIS 1+; BURR CELLS 2+; PLATELET ESTIMATE NORMAL; SCHISTOCYTES FEW
[2021-05-01] MEDS: sodium chloride 0.45% 1,000 ML IV SCH (17:24)
--- NOTE | 2021-05-01 18:30 | NUR ---
Patient in room ICU 2045. I have received report from BONI STARK and had the opportunity to ask questions and assume patient care.
[2021-05-01] MEDS: ipratropium 0.5 MG/2.5ML nebule IH PRN (19:28)
[2021-05-01] MEDS: insulin glargine (Lantus) pen - multi-dose SQ SCH (19:34)
[2021-05-01] MEDS: atorvastatin 10mg tablet PO SCH (19:40)
[2021-05-01] MEDS: tamsulosin 0.4mg capsule PO SCH (19:40)
[2021-05-01] MEDS: Melatonin 3mg tablet PO SCH (19:40)
[2021-05-02] VITALS (23 sets, daily range): BP systolic 100–135; BP diastolic 54–75
[2021-05-02 07:19] LABS: BASOPHILS # (AUTO) 0.1 X10'3 (0-0.2); BASOPHILS % (AUTO) 0.4 % (0-1); EOSINOPHILS % (AUTO) 0.1 % (0-6); HEMATOCRIT 26.4 % (42.0-52.0); HEMOGLOBIN 8.6 g/dl (14.0-17.9); LYMPHOCYTES # (AUTO) 0.9 X10'3 (1.1-4.8); LYMPHOCYTES % (AUTO) 4.9 % (21-51); MEAN CORPUSCULAR HEMOGLOBIN 29.3 PG (27.0-31.0); MEAN CORPUSCULAR HGB CONC 32.4 g/dL (33.0-36.5); MEAN CORPUSCULAR VOLUME 90.3 FL (78-98); MEAN PLATELET VOLUME 10.3 FL (7.4-10.4); MONOCYTES # (AUTO) 1.3 X10'3 (0-0.9); MONOCYTES % (AUTO) 7.5 % (2-12); NEUTROPHILS # (AUTO) 15.5 X10'3 (1.8-7.7); NEUTROPHILS % (AUTO) 87.1 % (42-75); PLATELET COUNT 175 X10'3 (140-440); RED BLOOD COUNT 2.92 X10'6 (4.70-6.10); RED CELL DISTRIBUTION WIDTH 16.3 % (11.5-14.5); WHITE BLOOD COUNT 17.8 X10'3 (4.5-11.0)
[2021-05-02 07:29] LABS: ALBUMIN 2.7 G/DL (3.4-5.0); ANION GAP 13 (8-16); BLOOD UREA NITROGEN 34 MG/DL (7-18); BUN/CREATININE RATIO 7.1 (5.4-32.0); CALCIUM 8.1 MG/DL (8.5-10.1); CHLORIDE 105 MMOL/L (99-107); CREATININE 4.81 MG/DL (0.60-1.10); GLUCOSE 124 MG/DL (70-104); MAGNESIUM 2.2 MG/DL (1.5-2.4); PHOSPHORUS 4.4 MG/DL (2.3-4.5); POTASSIUM 4.2 MMOL/L (3.5-5.1); SODIUM 144 MMOL/L (135-145); TOTAL CARBON DIOXIDE 25.8 MMOL/L (24-32); eGFR 12 ML/MIN
[2021-05-02] MEDS: sennosides/docusate sodium tablet PO SCH ×2 (08:29→20:05)
[2021-05-02] MEDS: cloNIDine 0.1 mg tablet PO SCH (08:30)
[2021-05-02] MEDS: allopurinol 100mg tablet PO SCH (08:30)
[2021-05-02] MEDS: pantoprazole 40mg Tablet.DR PO SCH (08:30)
[2021-05-02] MEDS: metoprolol tartrate 12.5mg (1/2 tablet) PO SCH ×2 (08:30→20:05)
[2021-05-02] MEDS: furosemide 40mg tablet PO SCH (08:30)
[2021-05-02] MEDS: aspirin 325mg tablet, delayed-release (Ecotrin) PO SCH (08:31)
[2021-05-02] MEDS: calcium acetate 667mg (PhosLO) capsule PO SCH ×3 (08:31→20:08)
[2021-05-02] MEDS: vitamin B comp w/Vit. C tab 1 TAB TABLET PO SCH (08:31)
--- NOTE | 2021-05-02 11:47 | NUR ---
Nutrition consult: Pt s/p CABG x 2. Provided pt w/ written and verbal nutrition for wound healing after cardiac surgery w/ RD contact info. Pt receptive of information. Addendum: 05/02/21 at [address] Amended: Links added.
--- NOTE | 2021-05-02 18:10 | NUR ---
Patient in room ICU 2045. I have received report from Zeinab STARK and had the opportunity to ask questions and assume patient care.
[2021-05-02] MEDS: ipratropium 0.5 MG/2.5ML nebule IH PRN (19:56)
[2021-05-02] MEDS: tamsulosin 0.4mg capsule PO SCH (20:06)
[2021-05-02] MEDS: Melatonin 3mg tablet PO SCH (20:06)
[2021-05-02] MEDS: atorvastatin 10mg tablet PO SCH (20:07)
[2021-05-02] MEDS: insulin glargine (Lantus) pen - multi-dose SQ SCH (20:23)
[2021-05-02] MEDS: HYDROcodone/acetaminophen 10/325mg tab PO PRN (20:55)
[2021-05-03] VITALS (8 sets, daily range): BP systolic 105–153; BP diastolic 53–75
--- NOTE | 2021-05-03 01:30 | NUR ---
Problems reprioritized. Patient report given, questions answered & plan of care reviewed with Vera RN. Patient transferred to PCU on wheelchair with tele. All belongings and meds with patient.
--- NOTE | 2021-05-03 06:34 | NUR ---
Patient in room PCU 3026. I have received report from Leann STARK and had the opportunity to ask questions and assume patient care.
--- NOTE | 2021-05-03 06:38 | NUR ---
CALL LIGHT PLACED WITHIN REACH. NO SIGNS OF DISTRESS NOTED AT THIS TIME. ASSESSMENT AND VITAL SIGNS CHARTED. PATIENT RESTING IN ROOM. REPORT GIVEN TO AM NURSE.
[2021-05-03 06:39] LABS: ACT @ 1.70 U 368 SEC (193-297); ACT @ 2.84 U 536 SEC (260-420); BASELINE ACT 134 SEC (101-148); PATIENT WEIGHT 80.0k KG
[2021-05-03 07:04] LABS: BASOPHILS # (AUTO) 0.1 X10'3 (0-0.2); BASOPHILS % (AUTO) 0.3 % (0-1); EOSINOPHILS # (AUTO) 0.6 X10'3 (0-0.9); EOSINOPHILS % (AUTO) 2.9 % (0-6); HEMATOCRIT 32.4 % (42.0-52.0); HEMOGLOBIN 10.3 g/dl (14.0-17.9); LYMPHOCYTES # (AUTO) 0.8 X10'3 (1.1-4.8); LYMPHOCYTES % (AUTO) 4.1 % (21-51); MEAN CORPUSCULAR HEMOGLOBIN 29.1 PG (27.0-31.0); MEAN CORPUSCULAR HGB CONC 31.9 g/dL (33.0-36.5); MEAN CORPUSCULAR VOLUME 91.1 FL (78-98); MEAN PLATELET VOLUME 9.9 FL (7.4-10.4); MONOCYTES # (AUTO) 1.5 X10'3 (0-0.9); MONOCYTES % (AUTO) 7.5 % (2-12); NEUTROPHILS # (AUTO) 16.7 X10'3 (1.8-7.7); NEUTROPHILS % (AUTO) 85.2 % (42-75); PLATELET COUNT 198 X10'3 (140-440); RED BLOOD COUNT 3.56 X10'6 (4.70-6.10); WHITE BLOOD COUNT 19.6 X10'3 (4.5-11.0)
[2021-05-03] MEDS: aspirin 325mg tablet, delayed-release (Ecotrin) PO SCH (07:46)
[2021-05-03] MEDS: calcium acetate 667mg (PhosLO) capsule PO SCH ×3 (07:46→18:00)
[2021-05-03] MEDS: sennosides/docusate sodium tablet PO SCH ×2 (07:46→19:29)
[2021-05-03] MEDS: allopurinol 100mg tablet PO SCH (07:46)
[2021-05-03] MEDS: cloNIDine 0.1 mg tablet PO SCH (07:47)
[2021-05-03] MEDS: pantoprazole 40mg Tablet.DR PO SCH (07:47)
[2021-05-03] MEDS: vitamin B comp w/Vit. C tab 1 TAB TABLET PO SCH (07:47)
[2021-05-03] MEDS: furosemide 40mg tablet PO SCH (07:47)
[2021-05-03 07:48] LABS: ALBUMIN 2.6 G/DL (3.4-5.0); ANION GAP 16 (8-16); BLOOD UREA NITROGEN 47 MG/DL (7-18); BUN/CREATININE RATIO 7.7 (5.4-32.0); CALCIUM 8.5 MG/DL (8.5-10.1); CHLORIDE 103 MMOL/L (99-107); CREATININE 6.07 MG/DL (0.60-1.10); GLUCOSE 95 MG/DL (70-104); MAGNESIUM 2.3 MG/DL (1.5-2.4); PHOSPHORUS 3.7 MG/DL (2.3-4.5); POTASSIUM 4.1 MMOL/L (3.5-5.1); SODIUM 140 MMOL/L (135-145); TOTAL CARBON DIOXIDE 21.5 MMOL/L (24-32); eGFR 9 ML/MIN
[2021-05-03] MEDS: metoprolol tartrate 12.5mg (1/2 tablet) PO SCH ×2 (07:48→19:31)
[2021-05-03 12:52] LABS: IONIZED CA (ABG) 0.79 mmol/L (1.10-1.43); K (ABG) 2.1 mmol/L (3.5-5.0)
[2021-05-03 12:54] LABS: TOTAL HEMOGLOBIN 6.1 G/dl (14.0-18.0)
[2021-05-03] MEDS: sodium chloride 0.45% 1,000 ML IV SCH (15:10)
--- NOTE | 2021-05-03 18:30 | NUR ---
Patient in room PCU 3021D. I have received report from Sarah and had the opportunity to ask questions and assume patient care.
--- NOTE | 2021-05-03 18:34 | NUR ---
Problems reprioritized. Patient report given, questions answered & plan of care reviewed with Tegan STARK.
[2021-05-03] MEDS: tamsulosin 0.4mg capsule PO SCH (20:34)
[2021-05-03] MEDS: atorvastatin 10mg tablet PO SCH (20:34)
[2021-05-03] MEDS: Melatonin 3mg tablet PO SCH (20:34)
[2021-05-04 02:00] VITALS: BP 147/75
[2021-05-04 06:00] VITALS: BP 164/79
--- NOTE | 2021-05-04 06:17 | NUR ---
Problems reprioritized. Patient report given, questions answered & plan of care reviewed with Sarah.
--- NOTE | 2021-05-04 06:27 | NUR ---
Patient in room PCU 3026. I have received report from Tegan STARK and had the opportunity to ask questions and assume patient care.
[2021-05-04] MEDS: allopurinol 100mg tablet PO SCH (07:28)
[2021-05-04] MEDS: vitamin B comp w/Vit. C tab 1 TAB TABLET PO SCH (07:29)
[2021-05-04] MEDS: aspirin 325mg tablet, delayed-release (Ecotrin) PO SCH (07:29)
[2021-05-04] MEDS: cloNIDine 0.1 mg tablet PO SCH (07:29)
[2021-05-04] MEDS: pantoprazole 40mg Tablet.DR PO SCH (07:30)
[2021-05-04] MEDS: furosemide 40mg tablet PO SCH (07:30)
[2021-05-04 07:32] LABS: MAGNESIUM 2.3 MG/DL (1.5-2.4); PHOSPHORUS 3.4 MG/DL (2.3-4.5); POTASSIUM 4.5 MMOL/L (3.5-5.1)
[2021-05-04] MEDS: sennosides/docusate sodium tablet PO SCH ×2 (08:00→19:10)
[2021-05-04] MEDS ORDERED: albumin (human) 25% 100ml IV 100 ML IV PRN (08:00)
[2021-05-04] MEDS: metoprolol tartrate 12.5mg (1/2 tablet) PO SCH ×2 (08:00→19:30)
[2021-05-04] MEDS: calcium acetate 667mg (PhosLO) capsule PO SCH ×3 (08:00→18:00)
[2021-05-04 09:31] LABS: BASOPHILS # (AUTO) 0.1 X10'3 (0-0.2); BASOPHILS % (AUTO) 0.4 % (0-1); EOSINOPHILS # (AUTO) 0.8 X10'3 (0-0.9); HEMATOCRIT 30.5 % (42.0-52.0); HEMOGLOBIN 9.8 g/dl (14.0-17.9); LYMPHOCYTES # (AUTO) 0.7 X10'3 (1.1-4.8); LYMPHOCYTES % (AUTO) 3.3 % (21-51); MEAN CORPUSCULAR HEMOGLOBIN 29.2 PG (27.0-31.0); MEAN CORPUSCULAR HGB CONC 32.1 g/dL (33.0-36.5); MEAN CORPUSCULAR VOLUME 90.8 FL (78-98); MEAN PLATELET VOLUME 9.8 FL (7.4-10.4); MONOCYTES # (AUTO) 1.7 X10'3 (0-0.9); MONOCYTES % (AUTO) 8.4 % (2-12); NEUTROPHILS # (AUTO) 17.2 X10'3 (1.8-7.7); NEUTROPHILS % (AUTO) 83.9 % (42-75); PLATELET COUNT 214 X10'3 (140-440); RED BLOOD COUNT 3.36 X10'6 (4.70-6.10); RED CELL DISTRIBUTION WIDTH 15.8 % (11.5-14.5); WHITE BLOOD COUNT 20.4 X10'3 (4.5-11.0)
[2021-05-04] MEDS ORDERED: heparin 1,000 units/ml 10ml inj HE ONE ×2 (09:35)
[2021-05-04 09:50] LABS: ALANINE AMINOTRANSFERASE 6 U/L (12-78); ALBUMIN 2.4 G/DL (3.4-5.0); ALBUMIN/GLOBULIN RATIO 0.9 (1.1-1.5); ALKALINE PHOSPHATASE 80 IU/L (46-116); ANION GAP 11 (8-16); ASPARTATE AMINO TRANSFERASE 16 U/L (10-37); BILIRUBIN,TOTAL 0.7 MG/DL (0.1-1.0); BLOOD UREA NITROGEN 57 MG/DL (7-18); BUN/CREATININE RATIO 7.4 (5.4-32.0); CALCIUM 8.3 MG/DL (8.5-10.1); CHLORIDE 104 MMOL/L (99-107); CREATININE 7.71 MG/DL (0.60-1.10); GLUCOSE 124 MG/DL (70-104); POTASSIUM 4.4 MMOL/L (3.5-5.1); SODIUM 139 MMOL/L (135-145); TOTAL CARBON DIOXIDE 23.6 MMOL/L (24-32); TOTAL PROTEIN 5.2 G/DL (6.4-8.2); eGFR 7 ML/MIN
[2021-05-04 11:00] VITALS: BP 136/81
[2021-05-04 15:00] VITALS: BP 116/75
[2021-05-04] MEDS: HYDROcodone/acetaminophen 10/325mg tab PO PRN (15:42)
--- NOTE | 2021-05-04 18:16 | NUR ---
Problems reprioritized. Patient report given, questions answered & plan of care reviewed with Tegan STARK.
--- NOTE | 2021-05-04 18:20 | NUR ---
Patient in room PCU 3026U. I have received report from Sarah and had the opportunity to ask questions and assume patient care.
[2021-05-04 19:00] VITALS: BP 98/55
[2021-05-04] MEDS: tamsulosin 0.4mg capsule PO SCH (20:28)
[2021-05-04] MEDS: atorvastatin 10mg tablet PO SCH (20:29)
[2021-05-04] MEDS: Melatonin 3mg tablet PO SCH (20:30)
[2021-05-04 22:00] VITALS: BP 120/65
[2021-05-04] MEDS ORDERED: insulin Lispro (HumaLOG) vial - multi-dose SQ SCH (22:10)
[2021-05-04] MEDS ORDERED: MESSAGE TO PHARMACY PO ONE (22:10)
[2021-05-05 02:00] VITALS: BP 124/56
--- NOTE | 2021-05-05 05:57 | NUR ---
Nursing Note Summary Pt is on 2L NC overnight. No signs of distress. However, needed assistance to the bathroom and became SOB on exertion. Pt had 2 BMs. Pt went back to bed and O2 sat was 92-94%. Bed alarm on, and encouraged pt to use it and to not get OOB without assistance. Bed in lowest and locked position. pt has no further complaints.
[2021-05-05 06:46] LABS: MAGNESIUM 1.9 MG/DL (1.5-2.4); PHOSPHORUS 3.2 MG/DL (2.3-4.5)
--- NOTE | 2021-05-05 06:51 | NUR ---
Problems reprioritized. Patient report given, questions answered & plan of care reviewed with Shelley.
[2021-05-05] MEDS: pantoprazole 40mg Tablet.DR PO SCH (08:20)
[2021-05-05] MEDS: vitamin B comp w/Vit. C tab 1 TAB TABLET PO SCH (08:22)
[2021-05-05] MEDS: metoprolol tartrate 12.5mg (1/2 tablet) PO SCH ×2 (08:22→21:22)
[2021-05-05] MEDS: sennosides/docusate sodium tablet PO SCH ×2 (08:22→20:00)
[2021-05-05] MEDS: aspirin 325mg tablet, delayed-release (Ecotrin) PO SCH (08:23)
[2021-05-05] MEDS: furosemide 40mg tablet PO SCH (08:23)
[2021-05-05] MEDS: calcium acetate 667mg (PhosLO) capsule PO SCH ×3 (08:23→18:28)
[2021-05-05] MEDS: cloNIDine 0.1 mg tablet PO SCH (08:23)
[2021-05-05] MEDS: allopurinol 100mg tablet PO SCH (08:23)
[2021-05-05 09:34] LABS: BASOPHILS # (AUTO) 0.2 X10'3 (0-0.2); BASOPHILS % (AUTO) 0.6 % (0-1); EOSINOPHILS # (AUTO) 0.8 X10'3 (0-0.9); EOSINOPHILS % (AUTO) 3.3 % (0-6); HEMATOCRIT 25.9 % (42.0-52.0); HEMOGLOBIN 8.2 g/dl (14.0-17.9); LYMPHOCYTES # (AUTO) 0.7 X10'3 (1.1-4.8); LYMPHOCYTES % (AUTO) 2.9 % (21-51); MEAN CORPUSCULAR HEMOGLOBIN 28.9 PG (27.0-31.0); MEAN CORPUSCULAR HGB CONC 31.8 g/dL (33.0-36.5); MEAN CORPUSCULAR VOLUME 90.8 FL (78-98); MEAN PLATELET VOLUME 9.4 FL (7.4-10.4); MONOCYTES # (AUTO) 1.5 X10'3 (0-0.9); MONOCYTES % (AUTO) 6.5 % (2-12); NEUTROPHILS # (AUTO) 20.5 X10'3 (1.8-7.7); NEUTROPHILS % (AUTO) 86.7 % (42-75); PLATELET COUNT 214 X10'3 (140-440); RED BLOOD COUNT 2.85 X10'6 (4.70-6.10); RED CELL DISTRIBUTION WIDTH 16.2 % (11.5-14.5); WHITE BLOOD COUNT 23.7 X10'3 (4.5-11.0)
--- NOTE | 2021-05-05 13:50 | NUR ---
Reassessment: Pt continues eating well with mostly 100% PO intake, occasionally down to 50% PO intake, now on a heart healthy CHO controlled diet. Noted patient's A1c is 5.0%. TC to RN with recommendation for diet advancement to regular with MD approval given current A1c and electrolytes WNL. LBM 05/03, receiving routine bowel care. No nutrition intervention implemented at this time. Will continue to follow. Recommendations: 1) Advance to regular diet given A1c 5.0% and electrolytes WNL; renal diet if electrolytes become elevated 2) Monitor need for additional protein for satiety 3) Routine Phos binder per MD 4) Routine bowel care 4) Scaled weights with dialysis Addendum: 05/05/21 at [address] Amended: Links added.
[2021-05-05] MEDS: HYDROcodone/acetaminophen 10/325mg tab PO PRN (13:59)
[2021-05-05] MEDS: sodium chloride 0.45% 1,000 ML IV SCH (16:00)
[2021-05-05] MEDS ORDERED: insulin glargine (Lantus) pen - multi-dose SQ SCH (21:00)
[2021-05-05] MEDS: atorvastatin 10mg tablet PO SCH (21:14)
[2021-05-05] MEDS: Melatonin 3mg tablet PO SCH (21:14)
[2021-05-05] MEDS: tamsulosin 0.4mg capsule PO SCH (21:14)
[2021-05-06 03:35] LABS: MAGNESIUM 2.1 MG/DL (1.5-2.4); PHOSPHORUS 3.6 MG/DL (2.3-4.5); POTASSIUM 4.6 MMOL/L (3.5-5.1)
[2021-05-06 06:00] VITALS: BP 153/67
--- NOTE | 2021-05-06 07:02 | NUR ---
Patient in room PCU 3026. I have received report from Tegan STARK and had the opportunity to ask questions and assume patient care.
[2021-05-06] MEDS: sennosides/docusate sodium tablet PO SCH ×2 (07:48→21:05)
[2021-05-06] MEDS: calcium acetate 667mg (PhosLO) capsule PO SCH ×3 (07:48→17:05)
[2021-05-06] MEDS: cloNIDine 0.1 mg tablet PO SCH (07:48)
[2021-05-06] MEDS: aspirin 325mg tablet, delayed-release (Ecotrin) PO SCH (07:49)
[2021-05-06] MEDS: allopurinol 100mg tablet PO SCH (07:49)
[2021-05-06] MEDS: furosemide 40mg tablet PO SCH (07:49)
[2021-05-06] MEDS: vitamin B comp w/Vit. C tab 1 TAB TABLET PO SCH (07:49)
[2021-05-06] MEDS: pantoprazole 40mg Tablet.DR PO SCH (07:50)
[2021-05-06] MEDS: metoprolol tartrate 12.5mg (1/2 tablet) PO SCH ×2 (07:50→21:05)
[2021-05-06] MEDS ORDERED: albumin (human) 25% 100ml IV 100 ML IV PRN (08:00)
[2021-05-06] MEDS ORDERED: EPOETIN ALFA-EPBX 20,000 UNIT/ML 1 ML MDV IV ONE (08:00)
[2021-05-06] MEDS ORDERED: heparin 1,000 units/ml 10ml inj HE ONE ×2 (08:05)
[2021-05-06 11:00] VITALS: BP 139/67
[2021-05-06] MEDS ORDERED: LOP12.5T PO (13:03)
[2021-05-06] MEDS ORDERED: SENN-283 PO (13:03)
[2021-05-06] MEDS ORDERED: HYDR-3972 PO (13:03)
[2021-05-06 13:41] LABS: ALANINE AMINOTRANSFERASE 6 U/L (12-78); ALBUMIN 2.5 G/DL (3.4-5.0); ALBUMIN/GLOBULIN RATIO 0.8 (1.1-1.5); ALKALINE PHOSPHATASE 89 IU/L (46-116); ANION GAP 13 (8-16); ASPARTATE AMINO TRANSFERASE 17 U/L (10-37); BILIRUBIN,TOTAL 0.8 MG/DL (0.1-1.0); BLOOD UREA NITROGEN 52 MG/DL (7-18); BUN/CREATININE RATIO 6.9 (5.4-32.0); CALCIUM 8.1 MG/DL (8.5-10.1); CHLORIDE 105 MMOL/L (99-107); CREATININE 7.53 MG/DL (0.60-1.10); GLUCOSE 141 MG/DL (70-104); MAGNESIUM 2.2 MG/DL (1.5-2.4); PHOSPHORUS 3.7 MG/DL (2.3-4.5); POTASSIUM 4.7 MMOL/L (3.5-5.1); SODIUM 141 MMOL/L (135-145); TOTAL CARBON DIOXIDE 23.5 MMOL/L (24-32); TOTAL PROTEIN 5.6 G/DL (6.4-8.2); eGFR 7 ML/MIN
[2021-05-06 15:00] VITALS: BP 115/62
[2021-05-06] MEDS: HYDROcodone/acetaminophen 10/325mg tab PO PRN (17:18)
--- NOTE | 2021-05-06 18:32 | NUR ---
Problems reprioritized. Patient report given, questions answered & plan of care reviewed with Odilia STARK. Patient stable at transfer of care.
[2021-05-06 20:00] VITALS: BP 112/70
[2021-05-06] MEDS: atorvastatin 10mg tablet PO SCH (21:04)
[2021-05-06] MEDS: tamsulosin 0.4mg capsule PO SCH (21:04)
[2021-05-06 21:05] VITALS: BP_SYST 110
--- NOTE | 2021-05-06 21:24 | NUR ---
Patient D/ping to SNF as per MD ordered. Denies discomfort prior discharge. BP110/74, P86, R20,T 97.8, O2 94%. All personals belongings taken with patient. Patient left unit at 2110 via W/C.
== END 2021-05-06 21:30 | disposition home or self-care (01) | DRG 233 ==
LOC: ER 11:17 → ED HOLD 13:41 → PCU 3S 15:38 → ICU 2S 04-29 11:25 → PCU 3S 05-03 01:59
PROVIDERS: ADMIT Internal Medicine; ATTEND Thoracic Surgery (Cardiothoracic Vascular Surgery)
PROC: 5A1D90Z Performance of Urinary Filtration, Continuous, Greater than 18 hours Per Day (ICD-10-PCS; 2021-04-20)
PROC: 4A02XM4 Measurement of Cardiac Total Activity, External Approach (ICD-10-PCS; 2021-04-21)
PROC: 3E073KZ Introduction of Other Diagnostic Substance into Coronary Artery, Percutaneous Approach (ICD-10-PCS; 2021-04-21)
PROC: 4A023N8 Measurement of Cardiac Sampling and Pressure, Bilateral, Percutaneous Approach (ICD-10-PCS; 2021-04-22)
PROC: 5A1D90Z Performance of Urinary Filtration, Continuous, Greater than 18 hours Per Day (ICD-10-PCS; 2021-04-22)
PROC: B3101ZZ Fluoroscopy of Thoracic Aorta using Low Osmolar Contrast (ICD-10-PCS; 2021-04-22)
PROC: B41F1ZZ Fluoroscopy of Right Lower Extremity Arteries using Low Osmolar Contrast (ICD-10-PCS; 2021-04-22)
PROC: B2111ZZ Fluoroscopy of Multiple Coronary Arteries using Low Osmolar Contrast (ICD-10-PCS; 2021-04-22)
PROC: B2151ZZ Fluoroscopy of Left Heart using Low Osmolar Contrast (ICD-10-PCS; 2021-04-22)
PROC: B2211ZZ Computerized Tomography (CT Scan) of Multiple Coronary Arteries using Low Osmolar Contrast (ICD-10-PCS; 2021-04-23)
PROC: 5A1D90Z Performance of Urinary Filtration, Continuous, Greater than 18 hours Per Day (ICD-10-PCS; 2021-04-24)
PROC: 30233N1 Transfusion of Nonautologous Red Blood Cells into Peripheral Vein, Percutaneous Approach (ICD-10-PCS; 2021-04-25)
PROC: 5A1D90Z Performance of Urinary Filtration, Continuous, Greater than 18 hours Per Day (ICD-10-PCS; 2021-04-27)
PROC: 021109W Bypass Coronary Artery, Two Arteries from Aorta with Autologous Venous Tissue, Open Approach (ICD-10-PCS; 2021-04-29)
PROC: 06BQ4ZZ Excision of Left Saphenous Vein, Percutaneous Endoscopic Approach (ICD-10-PCS; 2021-04-29)
PROC: 04QK0ZZ Repair Right Femoral Artery, Open Approach (ICD-10-PCS; 2021-04-29)
PROC: 5A1221Z Performance of Cardiac Output, Continuous (ICD-10-PCS; 2021-04-29)
PROC: 5A1D90Z Performance of Urinary Filtration, Continuous, Greater than 18 hours Per Day (ICD-10-PCS; 2021-04-29)
PROC: B24BZZ4 Ultrasonography of Heart with Aorta, Transesophageal (ICD-10-PCS; 2021-04-29)
PROC: 02100Z9 Bypass Coronary Artery, One Artery from Left Internal Mammary, Open Approach (ICD-10-PCS; principal; 2021-04-29 11:29)
PROC: 5A1D90Z Performance of Urinary Filtration, Continuous, Greater than 18 hours Per Day (ICD-10-PCS; 2021-05-01)
PROC: 5A1D90Z Performance of Urinary Filtration, Continuous, Greater than 18 hours Per Day (ICD-10-PCS; 2021-05-04)
PROC: 5A1D90Z Performance of Urinary Filtration, Continuous, Greater than 18 hours Per Day (ICD-10-PCS; 2021-05-06)
DX: I21.4 Non-ST elevation (NSTEMI) myocardial infarction (principal); N18.6 End stage renal disease; I50.23 Acute on chronic systolic (congestive) heart failure; E87.4 Mixed disorder of acid-base balance; I13.2 Hypertensive heart and chronic kidney disease with heart failure and with stage 5 chronic kidney disease, or end stage renal disease; Q24.5 Malformation of coronary vessels; I25.10 Atherosclerotic heart disease of native coronary artery without angina pectoris; I25.5 Ischemic cardiomyopathy; I72.8 Aneurysm of other specified arteries; N40.0 Benign prostatic hyperplasia without lower urinary tract symptoms; J44.9 Chronic obstructive pulmonary disease, unspecified; E11.22 Type 2 diabetes mellitus with diabetic chronic kidney disease; Z20.822 Contact with and (suspected) exposure to COVID-19; G47.30 Sleep apnea, unspecified; Z60.2 Problems related to living alone; S30.1XXA Contusion of abdominal wall, initial encounter; Y84.0 Cardiac catheterization as the cause of abnormal reaction of the patient, or of later complication, without mention of misadventure at the time of the procedure; Y92.230 Patient room in hospital as the place of occurrence of the external cause; M10.9 Gout, unspecified; I08.3 Combined rheumatic disorders of mitral, aortic and tricuspid valves; R06.03 Acute respiratory distress; D64.9 Anemia, unspecified; E78.5 Hyperlipidemia, unspecified; Z99.2 Dependence on renal dialysis; Z88.0 Allergy status to penicillin; Z87.891 Personal history of nicotine dependence; Z88.8 Allergy status to other drugs, medicaments and biological substances; Z79.899 Other long term (current) drug therapy; Z79.82 Long term (current) use of aspirin
CPT/HCPCS: 36415; 36430; 36600; 71045; 71046; 74176; 75572; 78452; 80048; 80053; 80061; 81001; 82272; 82330; 82435; 82803; 82947; 82948; 83036; 83605; 83735; 83880; 84100; 84132; 84145; 84295; 84484; 85008; 85014; 85018; 85025; 85027; 85347; 85379; 85384; 85610; 85730; 86885; 86900; 86901; 86920; 87040; 87081; 87088; 87635; 93005; 93017; 93308; 93312; 93325; 93460; 93567; 93880; 93926; 93931; 93971; 94002; 94010; 94640; 94667; 94668; 94760; 96365; 96375; 97110; 97116; 97162; 97530; 99152; 99153; 99291; A4618; A4620; A6258; A6449; A7000; A7048; A9500; C1751; C1769; C9113; C9803; G0257; G0378; J0131; J0171; J0360; J0690; J0696; J1100; J1265; J1644; J1815; J2001; J2060; J2150; J2250; J2270; J2370; J2405; J2440; J2597; J2720; J2785; J2930; J3010; J3370; J3480; J3490; J7030; J7040; J7050; J7120; P9016; P9045; P9047; Q4081; Q9963; Q9967

== ENCOUNTER 2021-06-18 17:09 | Emergency (ER) | payer MEDICARE, MEDICAID ==
[~2021-06-18] VITALS: Ht 175.3 cm; Wt 71.8 kg
[~2021-06-18 17:09] MED LIST changes: +CLON0.1T2 PO; +HYDR-3972 PO; -LABE200T5 PO; +LOP12.5T PO; +SENN-283 PO; -VERA180T59 PO
[2021-06-18 18:12] VITALS: BP 158/89
[2021-06-18 18:12] LABS: BASOPHILS % (AUTO) 0.2 % (0-1); EOSINOPHILS % (AUTO) 0 % (0-6); HEMATOCRIT 26.9 % (42.0-52.0); HEMOGLOBIN 8.7 g/dl (14.0-17.9); LYMPHOCYTES # (AUTO) 0.5 X10'3 (1.1-4.8); LYMPHOCYTES % (AUTO) 6.5 % (21-51); MEAN CORPUSCULAR HEMOGLOBIN 29.2 PG (27.0-31.0); MEAN CORPUSCULAR HGB CONC 32.5 g/dL (33.0-36.5); MEAN CORPUSCULAR VOLUME 89.8 FL (78-98); MEAN PLATELET VOLUME 9.7 FL (7.4-10.4); MONOCYTES # (AUTO) 0.3 X10'3 (0-0.9); MONOCYTES % (AUTO) 3.2 % (2-12); NEUTROPHILS # (AUTO) 7.2 X10'3 (1.8-7.7); NEUTROPHILS % (AUTO) 90.1 % (42-75); PLATELET COUNT 178 X10'3 (140-440); RED CELL DISTRIBUTION WIDTH 19.6 % (11.5-14.5)
[2021-06-18 18:25] LABS: ALANINE AMINOTRANSFERASE 25 U/L (12-78); ALBUMIN 2.6 G/DL (3.4-5.0); ALBUMIN/GLOBULIN RATIO 0.8 (1.1-1.5); ALKALINE PHOSPHATASE 77 IU/L (46-116); ANION GAP 14 (8-16); ASPARTATE AMINO TRANSFERASE 22 U/L (10-37); BILIRUBIN,TOTAL 0.4 MG/DL (0.1-1.0); BLOOD UREA NITROGEN 47 MG/DL (7-18); CALCIUM 8.5 MG/DL (8.5-10.1); CHLORIDE 106 MMOL/L (99-107); CREATININE 9.46 MG/DL (0.60-1.10); GLUCOSE 167 MG/DL (70-104); POTASSIUM 4.9 MMOL/L (3.5-5.1); SODIUM 142 MMOL/L (135-145); TOTAL CARBON DIOXIDE 22.1 MMOL/L (24-32); TOTAL PROTEIN 5.9 G/DL (6.4-8.2); eGFR 5 ML/MIN
== END 2021-06-18 22:09 | disposition home or self-care (01) ==
LOC: ER 17:11
DX: R06.02 Shortness of breath (principal); M79.89 Other specified soft tissue disorders; R05.9 Cough, unspecified; J44.9 Chronic obstructive pulmonary disease, unspecified; N18.6 End stage renal disease; Z99.2 Dependence on renal dialysis; Z60.2 Problems related to living alone; Z98.890 Other specified postprocedural states; Z88.0 Allergy status to penicillin; Z88.8 Allergy status to other drugs, medicaments and biological substances; Z79.82 Long term (current) use of aspirin; Z79.899 Other long term (current) drug therapy
CPT/HCPCS: 36415; 71045; 80053; 84484; 85025; 93005; 93971; 99285

== ENCOUNTER 2021-07-16 15:32 | Inpatient (IN) | payer MEDICARE, MEDICAID ==
[~2021-07-16] VITALS: Ht 180.3 cm; Wt 67.0 kg
[2021-07-16 16:32] LABS: BASOPHILS # (AUTO) 0.1 X10'3 (0-0.2); EOSINOPHILS # (AUTO) 0.4 X10'3 (0-0.9); EOSINOPHILS % (AUTO) 4.5 % (0-6); HEMATOCRIT 28.1 % (42.0-52.0); HEMOGLOBIN 9.2 g/dl (14.0-17.9); LYMPHOCYTES # (AUTO) 0.8 X10'3 (1.1-4.8); MEAN CORPUSCULAR HGB CONC 32.9 g/dL (33.0-36.5); MEAN CORPUSCULAR VOLUME 91.2 FL (78-98); MONOCYTES # (AUTO) 0.9 X10'3 (0-0.9); MONOCYTES % (AUTO) 9.4 % (2-12); NEUTROPHILS # (AUTO) 6.9 X10'3 (1.8-7.7); NEUTROPHILS % (AUTO) 76.1 % (42-75); PLATELET COUNT 194 X10'3 (140-440); RED BLOOD COUNT 3.08 X10'6 (4.70-6.10); RED CELL DISTRIBUTION WIDTH 19.7 % (11.5-14.5)
[2021-07-16 16:44] LABS: PARTIAL THROMBOPLASTIN TIME 26 SECONDS (22-32)
[2021-07-16] MEDS ORDERED: VERA180T59 PO (16:46)
[2021-07-16] MEDS ORDERED: METO-411 PO (16:46)
[2021-07-16] MEDS ORDERED: HYDR-3686 PO (16:46)
[2021-07-16] MEDS ORDERED: UMEC1DIS PO (16:46)
[2021-07-16 16:47] LABS: ANISOCYTOSIS 2+; HYPOCHROMASIA 1+; PLATELET ESTIMATE NORMAL; POLYCHROMASIA 1+; SCHISTOCYTES FEW; STOMATOCYTES 1+
[2021-07-16 16:55] LABS: ALANINE AMINOTRANSFERASE 20 U/L (12-78); ALBUMIN 2.6 G/DL (3.4-5.0); ALBUMIN/GLOBULIN RATIO 0.8 (1.1-1.5); ALKALINE PHOSPHATASE 83 IU/L (46-116); ANION GAP 11 (8-16); ASPARTATE AMINO TRANSFERASE 16 U/L (10-37); BILIRUBIN,TOTAL 0.6 MG/DL (0.1-1.0); BLOOD UREA NITROGEN 25 MG/DL (7-18); BUN/CREATININE RATIO 4.1 (5.4-32.0); CALCIUM 8.2 MG/DL (8.5-10.1); CHLORIDE 107 MMOL/L (99-107); CREATININE 6.06 MG/DL (0.60-1.10); GLUCOSE 91 MG/DL (70-104); SODIUM 143 MMOL/L (135-145); TOTAL CARBON DIOXIDE 25.2 MMOL/L (24-32); TOTAL PROTEIN 5.7 G/DL (6.4-8.2); eGFR 9 ML/MIN
[2021-07-16] MEDS ORDERED: furosemide 10 MG/1 ML 10ml inj IV ONE (18:45)
[2021-07-16] MEDS ORDERED: acetaminophen 325mg tablet PO PRN (19:20)
[2021-07-16] MEDS ORDERED: ondansetron/PF 4mg/2ml inj IV PRN (19:20)
[2021-07-16] MEDS ORDERED: cloNIDine 0.1 mg tablet PO ONE (19:30)
[2021-07-16] MEDS: docusate sod 100mg capsule PO SCH (20:00)
[2021-07-16] MEDS ORDERED: atorvastatin 20mg tablet PO SCH (21:00)
[2021-07-16 22:15] VITALS: BP 126/97
[2021-07-17 02:00] VITALS: BP 118/79
[2021-07-17 06:00] VITALS: BP 166/97
--- NOTE | 2021-07-17 06:22 | NUR ---
Patient in room PCU 3010. I have received report from Kenneth STARK and had the opportunity to ask questions and assume patient care. Pt. safe and stable at time of change of shift.
[2021-07-17 06:26] LABS: BASOPHILS # (AUTO) 0.1 X10'3 (0-0.2); BASOPHILS % (AUTO) 0.9 % (0-1); EOSINOPHILS # (AUTO) 0.4 X10'3 (0-0.9); EOSINOPHILS % (AUTO) 5.4 % (0-6); HEMATOCRIT 24.7 % (42.0-52.0); HEMOGLOBIN 8.1 g/dl (14.0-17.9); LYMPHOCYTES # (AUTO) 1.1 X10'3 (1.1-4.8); LYMPHOCYTES % (AUTO) 13.7 % (21-51); MEAN CORPUSCULAR HEMOGLOBIN 30.2 PG (27.0-31.0); MEAN CORPUSCULAR HGB CONC 32.8 g/dL (33.0-36.5); MEAN PLATELET VOLUME 9.3 FL (7.4-10.4); MONOCYTES # (AUTO) 0.9 X10'3 (0-0.9); MONOCYTES % (AUTO) 11.1 % (2-12); NEUTROPHILS # (AUTO) 5.5 X10'3 (1.8-7.7); NEUTROPHILS % (AUTO) 68.9 % (42-75); PLATELET COUNT 172 X10'3 (140-440); RED BLOOD COUNT 2.69 X10'6 (4.70-6.10); RED CELL DISTRIBUTION WIDTH 20.2 % (11.5-14.5)
[2021-07-17 06:55] LABS: ALANINE AMINOTRANSFERASE 18 U/L (12-78); ALBUMIN 2.2 G/DL (3.4-5.0); ALBUMIN/GLOBULIN RATIO 0.8 (1.1-1.5); ALKALINE PHOSPHATASE 74 IU/L (46-116); ANION GAP 12 (8-16); ASPARTATE AMINO TRANSFERASE 20 U/L (10-37); BILIRUBIN,TOTAL 0.5 MG/DL (0.1-1.0); BLOOD UREA NITROGEN 30 MG/DL (7-18); BUN/CREATININE RATIO 4.5 (5.4-32.0); CALCIUM 7.7 MG/DL (8.5-10.1); CHLORIDE 107 MMOL/L (99-107); CREATININE 6.66 MG/DL (0.60-1.10); GLUCOSE 150 MG/DL (70-104); SODIUM 142 MMOL/L (135-145); TOTAL CARBON DIOXIDE 23.1 MMOL/L (24-32); TOTAL PROTEIN 5.1 G/DL (6.4-8.2); eGFR 8 ML/MIN
[2021-07-17 07:00] LABS: PHOSPHORUS 4.8 MG/DL (2.3-4.5)
[2021-07-17 07:09] LABS: ANISOCYTOSIS 3+; PLATELET ESTIMATE NORMAL
[2021-07-17 07:10] LABS: POIKILOCYTOSIS FEW; POLYCHROMASIA 1+
[2021-07-17] MEDS: docusate sod 100mg capsule PO SCH (07:47)
[2021-07-17] MEDS ORDERED: allopurinol 100mg tablet PO SCH (08:00)
[2021-07-17] MEDS ORDERED: vitamin B comp w/Vit. C tab 1 TAB TABLET PO SCH (08:00)
[2021-07-17] MEDS ORDERED: verapamil SR 180mg tablet PO SCH (08:00)
[2021-07-17] MEDS ORDERED: furosemide 40mg tablet PO SCH (08:00)
[2021-07-17] MEDS ORDERED: [UNRECOGNIZED DRUG - OTHER] PO SCH (08:00)
[2021-07-17] MEDS ORDERED: cloNIDine 0.1 mg tablet PO SCH (08:00)
[2021-07-17] MEDS ORDERED: metoprolol succinate 25mg (24-HOUR) SR. Tablet PO SCH (08:00)
[2021-07-17] MEDS ORDERED: calcium acetate 667mg (PhosLO) capsule PO SCH (08:00)
[2021-07-17] MEDS ORDERED: UMECLIDINIUM BRM PO SCH (08:00)
[2021-07-17] MEDS ORDERED: pantoprazole 40mg Tablet.DR PO SCH (08:00)
[2021-07-17 10:22] LABS: CLARITY,URINE CLEAR (Clear); COLOR,URINE YELLOW (Yellow); GLUCOSE, URINE NEGATIVE (Neg); KETONES,URINE NEGATIVE (Neg); LEUKOCYTE ESTERASE ,URINE NEGATIVE (Neg); NITRITES, URINE NEGATIVE (Neg); OCCULT BLOOD,URINE TRACE-LYSED (Neg); PH,URINE 7.5 (4.8-8.0); PROTEIN,URINE TRACE mg/dl (Neg); UROBILINOGEN,URINE 0.2 E.U/dL (0.2-1.0)
[2021-07-17 10:27] LABS: UA COLLECTION TYPE CLN CATCH MIDSTREAM
[2021-07-17 10:28] LABS: BACTERIA,URINE NONE SEEN /HPF (Neg); MUCUS STRANDS NONE SEEN /LPF (Neg); RBC,URINE 0-2 /HPF (0-2); SQUAMOUS EPITHELIAL CELL,UR FEW /LPF (FEW); WBC,URINE NONE SEEN /HPF (0-4)
--- NOTE | 2021-07-17 12:58 | NUR ---
Discharge Instructions Pt. received discharge instructions; Per Dr. Gerardo Zamora ready for discharge; Pt. IV removed with catheter intact; Pt. tele box cleaned and returned; Pt. signed discharge paperwork without any further questions; Pt. signed medicare discharge paperwork; Pt. stated, "he felt ready to go home." [facility]
== END 2021-07-17 12:50 | disposition home health service (06) | DRG 947 ==
LOC: ER 15:33 → ED HOLD 19:24 → PCU 3S 22:00
PROVIDERS: ADMIT Internal Medicine; ATTEND Internal Medicine
DX: R53.1 Weakness (principal); N18.6 End stage renal disease; I13.2 Hypertensive heart and chronic kidney disease with heart failure and with stage 5 chronic kidney disease, or end stage renal disease; E11.22 Type 2 diabetes mellitus with diabetic chronic kidney disease; E78.5 Hyperlipidemia, unspecified; I25.10 Atherosclerotic heart disease of native coronary artery without angina pectoris; F32.A Depression, unspecified; M10.9 Gout, unspecified; Z20.822 Contact with and (suspected) exposure to COVID-19; Z60.2 Problems related to living alone; I50.9 Heart failure, unspecified; J44.9 Chronic obstructive pulmonary disease, unspecified; Z79.899 Other long term (current) drug therapy; Z87.891 Personal history of nicotine dependence; Z95.1 Presence of aortocoronary bypass graft; I25.2 Old myocardial infarction; Z99.2 Dependence on renal dialysis; Z88.0 Allergy status to penicillin; Z88.8 Allergy status to other drugs, medicaments and biological substances; Z99.81 Dependence on supplemental oxygen
CPT/HCPCS: 36415; 71045; 80053; 81001; 83880; 84100; 84484; 85008; 85025; 85610; 85730; 86885; 86900; 86901; 87635; 93005; 96374; 99285; C9803; G0378; J1940